=== PATIENT | female | born 1955 | race Caucasian/White ===

== ENCOUNTER 2016-04-30 08:49 | Emergency (ER) | payer MEDICAID, OTHER ==
[2016-04-30] MEDS ORDERED: HYDROmorphone 1 MG/ML Syringe IM ONE (09:23)
[2016-04-30] MEDS ORDERED: Ketorolac 60 MG/2 ML SDV IM ONE (09:23)
--- NOTE | 2016-04-30 09:56 | EDM.PDOC ---
ED HPI Trauma - General Chief Complaint: Upper Extremity Injury/Pain Stated Complaint: ARTHORITIS IN LT SHOULDER Time Seen by Provider: 04/30/16 09:11 Source: Reports: Patient History Limitations: Reports: No limitations - History of Present Illness INITIAL COMMENTS - FREE TEXT/NARRATIVE: The patient presents with right shoulder pain. She has fibromyalgia and she was recently diagnosed with RA by Dr Connelly in [place]. She has pain all over but her right shoulder has been bothering her more for the past couple of days. She denies any injury. The pain radiates to her neck. Occurred When: other (a few days ago) Occurred Where: home Method of Injury: unknown Severity: severe Pain/Injury Location: Reports: upper extremity, right (shoulder) Consciousness: Reports: no loss of consciousness Associated Symptoms: Reports: no other symptoms Allergies/ADRs: Allergies acetaminophen [From Darvocet-N 100] Allergy (Verified 04/30/16 08:55) Airway Tightness codeine Allergy (Verified 04/30/16 08:55) Airway Tightness fentanyl [From Duragesic] Allergy (Verified 04/30/16 08:55) Cannot Remember morphine Allergy (Verified 04/30/16 08:55) Airway Tightness Penicillins Allergy (Verified 04/30/16 08:55) Cannot Remember pregabalin [From Lyrica] Allergy (Verified 04/30/16 08:55) Airway Tightness propoxyphene napsylate [From Darvocet-N 100] Allergy (Verified 04/30/16 08:55) Airway Tightness Home Medications: Ambulatory Orders Gabapentin [Neurontin] 800 mg PO TID 05/21/14 [Confirmed 05/21/14] traMADol [Ultram] 50 - 100 mg PO Q6H PRN #30 tablet 04/30/16 Past Medical History Cardiovascular History: Reports: Hypertension Musculoskeletal History: Reports: Arthritis Endocrine/Metabolic History: Reports: Diabetes, type I Social & Family History - Tobacco Use Smoking Status *Q: Current Every Day Smoker Years of Tobacco use: 40 Packs/Tins Daily: 0.2 Review of Systems - Review of Systems Review Of Systems: See Below Constitutional: Reports: no symptoms Eyes: Reports: no symptoms Ears: Reports: no symptoms Nose: Reports: no symptoms Mouth/Throat: Reports: no symptoms Respiratory: Reports: no symptoms Cardiovascular: Reports: no symptoms GI/Abdominal: Reports: No symptoms Genitourinary: Reports: no symptoms Musculoskeletal: Reports: shoulder pain (Right) Skin: Reports: no symptoms Trauma Exam - Physical Exam Exam: See Below Exam Limited By: No limitations General Appearance: Reports: alert, no apparent distress Head: Reports: atraumatic, normocephalic Ears: Reports: normal external exam Nose: Reports: normal inspection Neck: Reports: non-tender, normal alignment, normal inspection Respiratory Exam: Reports: no respiratory distress, lungs clear, normal breath sounds Cardiovascular: Reports: regular rate, rhythm, no edema, no murmur GI/Abdominal: Reports: soft, non tender, no organomegaly Extremities: Reports: other (Pain upon palpation to the right lateral shoulder) Course - Vital Signs Last Recorded V/S: Last Vital Signs Temp 97.4 F 04/30/16 08:57 Pulse 80 04/30/16 08:57 Resp 18 04/30/16 08:57 BP 168/94 H 04/30/16 08:57 Pulse Ox 99 04/30/16 08:57 - Orders/Labs/Meds Meds: Medications Discontinued Medications Generic Name Dose Route Start Last Admin Trade Name Freq PRN Reason Stop Dose Admin Hydromorphone HCl 1 mg 04/30/16 09:23 04/30/16 09:43 Dilaudid IM 04/30/16 09:24 1 mg ONETIME ONE Administration Ketorolac Tromethamine 60 mg 04/30/16 09:23 04/30/16 09:40 Toradol IM 04/30/16 09:24 60 mg ONETIME ONE Administration - Re-Assessments/Exams Free Text/Narrative Re-Assessment/Exam: 04/30/16 09:54 I ordered dilaudid 1mg IM and toradol 60mg IM. I will discharge her home with some tramadol for pain. Departure - Departure Time of Disposition: 09:55 Disposition: Home, Self-Care 01 Condition: good Clinical Impression: Rheumatoid arthritis flare Right shoulder pain Qualifiers: Chronicity: acute Qualified Code(s): M25.511 - Pain in right shoulder Prescriptions: traMADol [Ultram] 50 - 100 mg PO Q6H PRN #30 tablet PRN Reason: Pain Referrals: Jason Grey PA-C [Primary Care Provider] - 2 Days (As scheduled) Forms: ED Department Discharge Additional Instructions: Take the tramadol as needed for pain. Please return if you are worse. Follow up with Jason Grey in 2 days.
[2016-04-30 10:31] VITALS: BP 138/85
== END 2016-04-30 10:20 | disposition home or self-care (01) ==
LOC: JD.ED 08:49
DX: M06.9 Rheumatoid arthritis, unspecified (principal); M25.511 Pain in right shoulder; F17.210 Nicotine dependence, cigarettes, uncomplicated; E10.9 Type 1 diabetes mellitus without complications; I10 Essential (primary) hypertension; Z88.5 Allergy status to narcotic agent; Z79.899 Other long term (current) drug therapy; Z88.0 Allergy status to penicillin
CPT/HCPCS: 96372; 99283; J1170; J1885; 99284

== ENCOUNTER 2016-09-27 15:50 | Emergency (ER) | payer MEDICAID ==
[2016-09-27 16:06] VITALS: BP 148/79
[2016-09-27] MEDS ORDERED: Ketorolac 60 MG/2 ML SDV IM ONE (17:26)
--- NOTE | 2016-09-27 17:27 | EDM.PDOC ---
ED HPI GENERAL MEDICAL PROBLEM - General Chief Complaint: Back Pain or Injury Stated Complaint: Pain Time Seen by Provider: 09/27/16 17:00 Source of Information: Reports: Patient, RN Notes Reviewed History Limitations: Reports: No Limitations - History of Present Illness INITIAL COMMENTS - FREE TEXT/NARRATIVE: 60 year old female presents to the ED with right low back pain and hip pain after a fall. She has fibromyalgia and says she falls frequently. The pain she is experiencing is not a new pain for her. She was able to ambulate after the fall. She did not hit her head or have a LOC. The daughter said she was a little confused after the fall. The confusion resolved prior to arrival. She has no bruising or evidence of head injury. She has a mild headache. No vision changes, slurred speech, or unilateral extremity weakness. The patient says she' s taken Tramadol in the past for pain and it works well for her. She's hoping for something to help with pain and plans to follow-up with Nancy Caryn tomorrow or Saturday. lower back Pain Score (Numeric/FACES): 9 - Related Data Allergies Allergy/AdvReac Type Severity Reaction Status Date / Time acetaminophen Allergy Airway Verified 09/27/16 16:06 [From Darvocet-N 100] Tightness codeine Allergy Airway Verified 09/27/16 16:06 Tightness fentanyl [From Duragesic] Allergy Cannot Verified 09/27/16 16:06 Remember morphine Allergy Airway Verified 09/27/16 16:06 Tightness Penicillins Allergy Cannot Verified 09/27/16 16:06 Remember pregabalin [From Lyrica] Allergy Airway Verified 09/27/16 16:06 Tightness propoxyphene napsylate Allergy Airway Verified 09/27/16 16:06 [From Darvocet-N 100] Tightness Home Meds: Home Meds Gabapentin [Neurontin] 800 mg PO TID 05/21/14 [History] Citalopram [Celexa] 40 mg PO DAILY 09/27/16 [History] Levothyroxine [Synthroid] 50 mcg PO ACBREAKFAST 09/27/16 [History] Ondansetron [Ondansetron ODT] 1 tab PO Q6H PRN 09/27/16 [History] Pantoprazole [ProTONIX] 40 mg PO ACBREAKFAST 09/27/16 [History] clonazePAM [Clonazepam] 1 tab PO DAILY 09/27/16 [History] sitaGLIPtin Phos/Metformin HCl [Janumet 50-1,000 MG] 1 each PO DAILY 09/27/16 [ History] tiZANidine HCl [Tizanidine HCl] 1 tab PO DAILY 09/27/16 [History] traZODone HCl [Trazodone HCl] 100 mg PO DAILY 09/27/16 [History] Past Medical History Cardiovascular History: Reports: Hypertension Gastrointestinal History: Reports: Other (See Below) Other Gastrointestinal History: chronic nausea Musculoskeletal History: Reports: Arthritis, Fibromyalgia Neurological History: Reports: Migraines, Vertigo Psychiatric History: Reports: Anxiety, Depression Endocrine/Metabolic History: Reports: Diabetes, Type II, Hypothyroidism Social & Family History - Family History Family Medical History: Noncontributory - Tobacco Use Smoking Status *Q: Current Every Day Smoker Years of Tobacco use: 30 Packs/Tins Daily: 0.5 - Caffeine Use Caffeine Use: Reports: Coffee - Recreational Drug Use Recreational Drug Use: No ED ROS GENERAL - Review of Systems Review Of Systems: See Below Constitutional: Reports: No Symptoms. Denies: Fever, Chills, Diaphoresis HEENT: Reports: No Symptoms. Denies: Vertigo, Vision Change Respiratory: Reports: No Symptoms. Denies: Shortness of Breath Cardiovascular: Reports: No Symptoms. Denies: Chest Pain GI/Abdominal: Reports: No Symptoms. Denies: Abdominal Pain, Nausea, Vomiting Musculoskeletal: Reports: Back Pain, Joint Pain, Muscle Pain (right low back ), Other (generalized pain to various locations ) Neurological: Reports: Confusion (brief), Headache. Denies: Dizziness, Numbness , Tingling, Weakness, Other ED EXAM, GENERAL - Physical Exam Exam: See Below Exam Limited By: No Limitations General Appearance: Alert, WD/WN, No Apparent Distress Eye Exam: Bilateral Eye: EOMI, PERRL Head: Atraumatic, Normocephalic Neck: Normal Inspection, Supple, Non-Tender, Full Range of Motion. No: Tender Midline Respiratory/Chest: No Respiratory Distress, Lungs Clear, Normal Breath Sounds, No Accessory Muscle Use Cardiovascular: Regular Rate, Rhythm, No Edema GI/Abdominal: Normal Bowel Sounds, Soft, Non-Tender Neurological: Alert, Oriented, CN II-XII Intact, Normal Cognition, Normal Gait, No Motor/Sensory Deficits, Other (cerebellar testing intact ) Skin Exam: Warm, Dry, Intact Course - Vital Signs Last Recorded V/S: Last Vital Signs Temp 97.5 F 09/27/16 15:55 Pulse 96 09/27/16 15:55 Resp 18 09/27/16 15:55 BP 148/79 H 09/27/16 15:55 Pulse Ox 96 09/27/16 15:55 - Orders/Labs/Meds Meds: Medications Discontinued Medications Generic Name Dose Route Start Last Admin Trade Name Myah PRN Reason Stop Dose Admin Ketorolac Tromethamine 60 mg 09/27/16 17:26 09/27/16 17:32 Toradol IM 09/27/16 17:27 60 mg ONETIME ONE Administration - Re-Assessments/Exams Free Text/Narrative Re-Assessment/Exam: Exam today is normal. No concern for acute head injury or stroke. Patient will be given Tramadol for pain. Educated on return precautions and followup instructions. Departure - Departure Time of Disposition: 17:28 Disposition: Home, Self-Care 01 Condition: Good Clinical Impression: Fibromyalgia Fall Qualifiers: Encounter type: initial encounter Qualified Code(s): W19.XXXA - Unspecified fall, initial encounter Chronic pain Qualifiers: Chronic pain type: other chronic pain Qualified Code(s): G89.29 - Other chronic pain - Discharge Information Instructions: Chronic Pain Referrals: Jason Grey PA-C [Primary Care Provider] - Forms: ED Department Discharge Additional Instructions: Follow-up with Nancy Samples tomorrow or Saturday, call [phone] to schedule Recommend Physical therapy Tramadol 1 tab every 6 hours as needed for pain Return to Er with any new or worsening symptoms
== END 2016-09-27 18:00 | disposition home or self-care (01) ==
LOC: JD.ED 15:50
DX: M79.7 Fibromyalgia (principal); G89.29 Other chronic pain; M54.5 Low back pain; I10 Essential (primary) hypertension; F41.9 Anxiety disorder, unspecified; F32.9 Major depressive disorder, single episode, unspecified; E11.9 Type 2 diabetes mellitus without complications; E03.9 Hypothyroidism, unspecified; Z79.899 Other long term (current) drug therapy; Z88.0 Allergy status to penicillin; Z88.5 Allergy status to narcotic agent; Z88.6 Allergy status to analgesic agent; Z88.8 Allergy status to other drugs, medicaments and biological substances; W19.XXXA Unspecified fall, initial encounter
CPT/HCPCS: 96372; 99283; J1885

== ENCOUNTER 2016-10-03 21:17 | Emergency (ER) | payer MEDICAID ==
[2016-10-03 21:32] VITALS: BP 159/77
--- NOTE | 2016-10-03 22:01 | EDM.PDOC ---
ED HPI GENERAL MEDICAL PROBLEM - General Chief Complaint: Syncope Stated Complaint: PAIN Time Seen by Provider: 10/03/16 21:58 - History of Present Illness INITIAL COMMENTS - FREE TEXT/NARRATIVE: 60-year-old female presents emergency room with severe hip pain and she now has a migraine. Patient fell was seen for this in this last week. Now the pain is getting so bad. The patient ran out of her tramadol. She has not been able to follow-up in the clinic says her physician is not return her phone call. Patient denies any repeat injury. The patient states the pain has been so bad that she passed out twice today she may have bumped her head. She denies any chest pain chest pressure breathing difficulties or shortness of breath she has had no palpitations. No loss of bowel or bladder control. - Related Data Allergies Allergy/AdvReac Type Severity Reaction Status Date / Time acetaminophen Allergy Airway Verified 09/27/16 16:06 [From Darvocet-N 100] Tightness codeine Allergy Airway Verified 09/27/16 16:06 Tightness fentanyl [From Duragesic] Allergy Cannot Verified 09/27/16 16:06 Remember morphine Allergy Airway Verified 09/27/16 16:06 Tightness Penicillins Allergy Cannot Verified 09/27/16 16:06 Remember pregabalin [From Lyrica] Allergy Airway Verified 09/27/16 16:06 Tightness propoxyphene napsylate Allergy Airway Verified 09/27/16 16:06 [From Darvocet-N 100] Tightness Home Meds: Home Meds Gabapentin [Neurontin] 800 mg PO TID 05/21/14 [History] Citalopram [Celexa] 40 mg PO DAILY 09/27/16 [History] Levothyroxine [Synthroid] 50 mcg PO ACBREAKFAST 09/27/16 [History] Ondansetron [Ondansetron ODT] 1 tab PO Q6H PRN 09/27/16 [History] Pantoprazole [ProTONIX] 40 mg PO ACBREAKFAST 09/27/16 [History] clonazePAM [Clonazepam] 1 tab PO DAILY 09/27/16 [History] sitaGLIPtin Phos/Metformin HCl [Janumet 50-1,000 MG] 1 each PO DAILY 09/27/16 [ History] tiZANidine HCl [Tizanidine HCl] 1 tab PO DAILY 09/27/16 [History] traZODone HCl [Trazodone HCl] 100 mg PO DAILY 09/27/16 [History] Past Medical History Cardiovascular History: Reports: Hypertension Gastrointestinal History: Reports: Other (See Below) Other Gastrointestinal History: chronic nausea Musculoskeletal History: Reports: Arthritis, Fibromyalgia Neurological History: Reports: Migraines, Vertigo Psychiatric History: Reports: Anxiety, Depression Endocrine/Metabolic History: Reports: Diabetes, Type II, Hypothyroidism Social & Family History - Family History Family Medical History: Noncontributory - Tobacco Use Smoking Status *Q: Current Some Day Smoker Years of Tobacco use: 30 Packs/Tins Daily: 0.1 - Caffeine Use Caffeine Use: Reports: Coffee - Recreational Drug Use Recreational Drug Use: No ED ROS GENERAL - Review of Systems Review Of Systems: See Below Constitutional: Reports: No Symptoms HEENT: Reports: No Symptoms Respiratory: Reports: No Symptoms Cardiovascular: Reports: Syncope (Possible). Denies: Chest Pain, Palpitations GI/Abdominal: Reports: No Symptoms Musculoskeletal: Reports: Other (She is ambulatory without to much difficulty she has right-sided hip discomfort) Neurological: Reports: No Symptoms ED EXAM, GENERAL - Physical Exam Exam: See Below Exam Limited By: No Limitations General Appearance: Alert, No Apparent Distress Eye Exam: Bilateral Eye: EOMI, Normal Inspection, PERRL Ears: Normal External Exam, Normal Canal, Hearing Grossly Normal, Normal TMs Nose: Normal Inspection, Normal Mucosa, No Blood Throat/Mouth: Normal Inspection, Normal Oropharynx, No Airway Compromise Head: Atraumatic, Normocephalic Neck: Normal Inspection, Supple, Non-Tender, Full Range of Motion. No: Lymphadenopathy (L), Lymphadenopathy (R), Tender Midline Respiratory/Chest: No Respiratory Distress, Lungs Clear, Normal Breath Sounds Cardiovascular: Regular Rate, Rhythm, No Edema, No Murmur GI/Abdominal: Normal Bowel Sounds, Soft, Non-Tender Back Exam: Other (She has some vague paraspinous discomfort. No bony tenderness straight leg raises are normal). No: CVA Tenderness (L), Paraspinal Tenderness , Vertebral Tenderness Extremities: Other (She has some vague right hip discomfort) Neurological: Alert, Oriented, Normal Cognition, No Motor/Sensory Deficits. No : Sensory/Motor Deficit EKG INTERPRETATION EKG Date: 10/03/16 Rhythm: NSR Couch: LAD-Left Couch Deviation P-Wave: Present QRS: Other (Interventricular conduction delay) ST-T: Other (Nonspecific nondiagnostic changes no evidence of ischemia) QT: Prolonged (Borderline prolonged probably due to the intraventricular conduction delay) Comparison: NA - No Prior EKG EKG Interpretation Comments: Abnormal Course - Vital Signs Last Recorded V/S: Last Vital Signs Temp 36.1 C 10/03/16 21:28 Pulse 89 10/03/16 21:28 Resp 16 10/03/16 21:28 BP 159/77 H 10/03/16 21:28 Pulse Ox 97 10/03/16 21:28 - Orders/Labs/Meds Orders: Active Orders 24 hr Category Date Time Status EKG Documentation Completion [RC] STAT Care 10/03/16 22:30 Active Head wo Cont [CT] Stat Exams 10/03/16 22:30 Taken Labs: Laboratory Tests 10/03/16 Range/Units 23:08 Sodium 142 (136-145) mEq/L Potassium 3.9 (3.5-5.1) mEq/L Chloride 104 (98-107) mEq/L Carbon Dioxide 31 (21-32) mEq/L Anion Gap 10.9 (5-15) BUN 19 H (7-18) mg/dL Creatinine 1.2 H (0.55-1.02) mg/dL Est Cr Clr Drug Dosing 43.05 mL/min Estimated GFR (MDRD) 46 (>60) mL/min BUN/Creatinine Ratio 15.8 (14-18) Glucose 201 H (74-106) mg/dL Calcium 9.0 (8.5-10.1) mg/dL Meds: Medications Discontinued Medications Generic Name Dose Route Start Last Admin Trade Name Freq PRN Reason Stop Dose Admin Diphenhydramine HCl 50 mg 10/03/16 22:32 10/03/16 22:47 Benadryl IVPUSH 10/03/16 22:33 50 mg ONETIME ONE Administration Lactated Ringer's 1,000 mls @ 999 mls/hr 10/03/16 22:32 10/03/16 22:47 Ringers, Lactated IV 10/03/16 23:32 999 mls/hr .BOLUS ONE Administration Ketorolac Tromethamine 30 mg 10/03/16 23:59 10/04/16 00:07 Toradol IM 08/03/17 00:00 30 mg ONETIME ONE Administration Ondansetron HCl 4 mg 10/03/16 22:32 10/03/16 22:48 Zofran IVPUSH 10/03/16 22:33 4 mg ONETIME ONE Administration - Re-Assessments/Exams Free Text/Narrative Re-Assessment/Exam: 10/04/16 01:13 Patient had a uneventful CT of her head. Electrolytes are unremarkable creatinine 1.2 patient was given Benadryl Zofran with not much improvement in her headache this was followed up with 30 mg of IM Toradol she feels much better and wants to go home Departure - Departure Time of Disposition: 01:14 Disposition: Home, Self-Care 01 Clinical Impression: Migraine, Low back pain, Hip pain - Discharge Information Forms: ED Department Discharge Additional Instructions: Return to the emergency room with any questions problems or worsening symptoms. Follow-up with your regular physician this week if possible. Go home and get a good nights sleep do not eat a heavy meal tonight push fluids. - My Orders Last 24 Hours: My Active Orders 10/03/16 22:30 EKG Documentation Completion [RC] STAT Head wo Cont [CT] Stat - Assessment/Plan Last 24 Hours: My Active Orders 10/03/16 22:30 EKG Documentation Completion [RC] STAT Head wo Cont [CT] Stat
[2016-10-03] MEDS ORDERED: Ondansetron 4 MG/2 ML SDV IVPUSH ONE (22:32)
[2016-10-03] MEDS ORDERED: diphenhydrAMINE 50 MG/ML SDV IVPUSH ONE (22:32)
[2016-10-03] MEDS ORDERED: Lactated Ringers 1,000 ML IV ONE (22:32)
[2016-10-03] MEDS ORDERED: Ketorolac 30 MG/ML SDV IM ONE (23:59)
--- NOTE | 2016-10-04 07:13 | CT ---
Head CT Technique: Multiple axial sections through the brain were obtained. Intravenous contrast not utilized. Comparison: No previous intracranial imaging. Findings: Ventricles along with basal cisterns and sulci over the convexities are slightly prominent. Very minimal diminished density noted within the periventricular white matter compatible with small vessel ischemic demyelination change. No other abnormal parenchymal densities are seen. Slight atherosclerotic calcification is seen within the carotid siphon. Bone window settings show the visualized sinuses to appear clear. No acute calvarial abnormality is seen. Impression: 1. Minimal senescent change. 2. No acute intracranial abnormality is identified. Diagnostic code #2 I agree with preliminary report issued by [facility] ([facility] preliminary report dictated on 10/04/16, 12:31 AM Central Time)
== END 2016-10-04 01:20 | disposition home or self-care (01) ==
LOC: JD.ED 21:17
DX: G43.909 Migraine, unspecified, not intractable, without status migrainosus (principal); M25.551 Pain in right hip; M54.5 Low back pain; F17.210 Nicotine dependence, cigarettes, uncomplicated; I10 Essential (primary) hypertension; E11.9 Type 2 diabetes mellitus without complications; M19.90 Unspecified osteoarthritis, unspecified site; F41.9 Anxiety disorder, unspecified; F32.9 Major depressive disorder, single episode, unspecified; E03.9 Hypothyroidism, unspecified; Z79.84 Long term (current) use of oral hypoglycemic drugs; Z79.899 Other long term (current) drug therapy; Z88.5 Allergy status to narcotic agent; Z88.0 Allergy status to penicillin; Z88.6 Allergy status to analgesic agent; Z88.8 Allergy status to other drugs, medicaments and biological substances
CPT/HCPCS: 36415; 70450; 80048; 96361; 96372; 96374; 96375; 99284; J1200; J1885; J2405; J7120

== ENCOUNTER 2016-10-30 17:33 | Emergency (ER) | payer OTHER ==
--- NOTE | 2016-10-30 17:52 | EDM.PDOC ---
ED HPI GENERAL MEDICAL PROBLEM - General Chief Complaint: Lower Extremity Injury/Pain Stated Complaint: HIP PAIN Time Seen by Provider: 10/30/16 17:51 Source of Information: Reports: Patient History Limitations: Reports: No Limitations - History of Present Illness INITIAL COMMENTS - FREE TEXT/NARRATIVE: 61-year-old female presents the ED with chronic generalized pain syndrome labeled as fibromyalgia syndrome. She has diffuse osteoarthritic changes throughout her neck and lumbar spine both hips and both knees. Currently having a lot of pain in her left hip rating down to her knee. No pain below either knee. She does not walk up stairs at all due to severe patellofemoral pain in her left knee. She is a candidate I believe for total knee replacement but it's unclear why she has not pursue this avenue of treatment. At present she's not sleeping at all she is exhausted due to chronic pain. She uses trazodone 100 mg at bedtime and has for many years. So clonazepam 1 mg at bedtime. Pain is constant and radicular. Certain movements make it worse. 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 She has type 2 diabetes which is very well-controlled. Blood sugar today was 109. Onset: Other (Chronic pain syndrome for many months just worse the last few days.) Duration: Chronic, Constant, Getting Worse Location: Reports: Generalized (Generalized pain syndrome worse pain at present in the is in the left but talk lower back rating into the left leg down to the knee.) Quality: Reports: Ache, Throbbing Severity: Severe (Currently rates pain as 8 out of 10.) Improves with: Reports: None Worsens with: Reports: Other (Standing), Movement Context: Reports: Other (Has a chronic pain syndrome for over 20 years.). Denies: Activity, Exercise, Lifting, Sick Contact, Trauma Associated Symptoms: Reports: Headaches, Loss of Appetite, Malaise, Nausea/ Vomiting, Weakness (. Feels very weak in her lower extremities.). 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.) Left Knee Pain Score (Numeric/FACES): 8 - Related Data Allergies Allergy/AdvReac Type Severity Reaction Status Date / Time acetaminophen Allergy Airway Verified 10/30/16 17:53 [From Darvocet-N 100] Tightness codeine Allergy Airway Verified 10/30/16 17:53 Tightness fentanyl [From Duragesic] Allergy Cannot Verified 10/30/16 17:53 Remember morphine Allergy Airway Verified 10/30/16 17:53 Tightness Penicillins Allergy Cannot Verified 10/30/16 17:53 Remember pregabalin [From Lyrica] Allergy Airway Verified 10/30/16 17:53 Tightness propoxyphene napsylate Allergy Airway Verified 10/30/16 17:53 [From Darvocet-N 100] Tightness Home Meds: Home Meds Gabapentin [Neurontin] 800 mg PO TID 05/21/14 [History] Citalopram [Celexa] 40 mg PO DAILY 09/27/16 [History] Levothyroxine [Synthroid] 50 mcg PO ACBREAKFAST 09/27/16 [History] Ondansetron [Ondansetron ODT] 1 tab PO Q6H PRN 09/27/16 [History] Pantoprazole [ProTONIX] 40 mg PO ACBREAKFAST 09/27/16 [History] clonazePAM [Clonazepam] 1 tab PO DAILY 09/27/16 [History] sitaGLIPtin Phos/Metformin HCl [Janumet 50-1,000 MG] 1 each PO DAILY 09/27/16 [ History] tiZANidine HCl [Tizanidine HCl] 1 tab PO DAILY 09/27/16 [History] traZODone HCl [Trazodone HCl] 100 mg PO DAILY 09/27/16 [History] ClonazePAM [KlonoPIN] 2 mg PO BEDTIME #30 tablet 10/30/16 [Rx] Meloxicam 15 mg PO DAILY #14 tablet 10/30/16 [Rx] oxyCODONE HCl/Acetaminophen [Percocet 5-325 mg Tablet] 1 - 2 each PO Q4H PRN # 24 tablet 10/30/16 [Rx] Past Medical History Cardiovascular History: Reports: Hypertension Gastrointestinal History: Reports: Other (See Below) Other Gastrointestinal History: chronic nausea Musculoskeletal History: Reports: Arthritis, Back Pain, Chronic, Fibromyalgia, Neck Pain, Chronic, Osteoarthritis, Osteoporosis Neurological History: Reports: Migraines, Vertigo Psychiatric History: Reports: Anxiety, Depression Endocrine/Metabolic History: Reports: Diabetes, Type II, Hypothyroidism Social & Family History - Family History Family Medical History: Noncontributory - Tobacco Use Smoking Status *Q: Current Some Day Smoker Years of Tobacco use: 30 Packs/Tins Daily: 0.1 - Caffeine Use Caffeine Use: Reports: Coffee - Recreational Drug Use Recreational Drug Use: No - Living Situation & Occupation Living situation: Reports: Single Occupation: Disabled Review of Systems - Review of Systems Review Of Systems: See Below Constitutional: Reports: Weakness (Generalized). Denies: Chills, Diaphoresis, Fever Eyes: Reports: No Symptoms Ears: Reports: No Symptoms Nose: Reports: No Symptoms Mouth/Throat: Reports: Other Respiratory: Reports: Shortness of Breath (Has had all her teeth removed. She is edentulous.) Cardiovascular: Reports: Edema (Mild retained fluid in her lower extremities.), Lightheadedness (At times due to the severity of the pain when she is walking or standing). Denies: Chest Pain ( Exertion.) GI/Abdominal: Reports: Decreased Appetite Genitourinary: Reports: Other (Frequency) Musculoskeletal: Reports: Neck Pain, Back Pain (Chronic low back pain with radicular pain into both but talks and posterior lateral thighs. Worse on the left as compared to the right.), Leg Pain (5 pain to the knee but not below the knee on either leg.) Skin: Reports: No Symptoms Neurological: Reports: Dizziness, Headache, Difficulty Walking, Gait Disturbance (Walks with a shuffling gait.) Psychiatric: Reports: Depression, Other (Chronic insomnia) ED EXAM, GENERAL - Physical Exam Exam: See Below Exam Limited By: No Limitations General Appearance: Alert, Mild Distress Eye Exam: Bilateral Eye: Normal Inspection Head: Atraumatic Neck: Tender Lateral (Bilaterally with crepitus on lateral rotation.) Respiratory/Chest: No Respiratory Distress, Decreased Breath Sounds (Breath sounds are mildly diminished at both bases.) Cardiovascular: Regular Rate, Rhythm, No Gallop, No Murmur, No Rub Peripheral Pulses: 1+: Posterior Tibial (L), Posterior Tibial (R), Dorsalis Pedis (L), Dorsalis Pedis (R) Back Exam: Decreased Range of Motion, Vertebral Tenderness (From L1-L5 bilaterally. Worse is over the L4-L5 and L5-S1 facet joints on the left side as compared to the right.), Other ( There is minimal per muscle spasm. severe bilateral sacroiliac ileitis particularly in the superior aspect of the joint much worse on the left as compared to the right and I think this is the cause of the referred pain down her leg at present. Straight leg raising was not limited I could get up to 60 on both sides. ). No: Full Range of Motion, CVA Tenderness (L), CVA Tenderness (R), Muscle Spasm Extremities: Other (Patient has loss of 10 external rotation of both hips compare with most arthritic changes. This did not exacerbate the pain in her knee however. There is some increased warmth coming from the left knee joint with no effusion evident. Again marked severe pain on palpation of the SI joint particularly the superior aspect of the joint bilaterally) Neurological: Alert, Oriented, CN II-XII Intact, Normal Cognition. No: Normal Gait Psychiatric: Normal Affect Skin Exam: Warm, Dry, Intact, Normal Color, No Rash Course - Vital Signs Last Recorded V/S: Last Vital Signs Temp 36.6 C 10/30/16 17:48 Pulse 83 10/30/16 17:48 Resp 18 10/30/16 17:48 BP 111/70 10/30/16 17:48 Pulse Ox 95 10/30/16 17:48 - Orders/Labs/Meds Labs: Laboratory Tests 10/30/16 Range/Units 17:46 POC Glucose 109 (80-115) mg/dL Meds: Medications Discontinued Medications Generic Name Dose Route Start Last Admin Trade Name Freq PRN Reason Stop Dose Admin Hydromorphone HCl 1 mg 10/30/16 18:16 Dilaudid IM 10/30/16 18:17 ONETIME ONE Promethazine HCl 25 mg 10/30/16 18:16 Phenergan IM 10/30/16 18:17 ONETIME ONE - Radiology Interpretation Free Text/Narrative:: 61-year-old female presents the ED with generalized chronic pain syndrome which is been acutely exacerbated as of recent. Increased pain in her left lower back but talk rating down towards the left knee. She has fibromyalgia syndrome for over 20 years. It is disrupted her sleep pattern tremendously as of late and she feels exhausted and weak. Nauseated due to the severity of the pain. She is a type II diabetic but sugars are under excellent control current sugar today was 109. She had 120 this morning. She has not slept well for a week. Showed a takes trazodone 100 mg at bedtime and 1 mg of Klonopin. Examination suggests most the pain is coming from L4-L5 and L5-S1 facet joints on the left side with severe pain throughout the sacroiliac joints bilaterally in the superior aspect worse on the left as compared to the right. I could find only slight warmth in the knee with osteophytic changes but straight leg raising is negative suggesting no evidence of nerve root entrapment. Decreased range of motion of her hip with loss of 10 external rotation suggesting osteophytic changes in the hip as well. Think most the pain is coming from the sacroiliac joint however. She has been on steroids in the past but prefers not to take them due to elevation of her blood sugars and retention of fluid. I will therefore place her on meloxicam 15 mg once daily as an anti-inflammatory for 14 day course. If it helps then maybe she can continue as long as her renal function is maintained. Percocet 5/325 milligram tablets one or 2 every 4-6 hours needed for pain relief. Will increase her Klonopin to 2 mg at bedtime to help sleep. Departure - Departure Time of Disposition: 18:49 Disposition: Home, Self-Care 01 Condition: Fair Clinical Impression: Degenerative disc disease at L5-S1 level, Bilateral sacroiliitis, Chronic fatigue syndrome with fibromyalgia - Discharge Information Prescriptions: ClonazePAM [KlonoPIN] 2 mg PO BEDTIME #30 tablet Meloxicam 15 mg PO DAILY #14 tablet oxyCODONE HCl/Acetaminophen [Percocet 5-325 mg Tablet] 1 - 2 each PO Q4H PRN # 24 tablet PRN Reason: pain relief. Referrals: Nancy Rubin PA [Primary Care Provider] - Forms: ED Department Discharge Additional Instructions: Evaluation the emergency room today in regards to chronic pain syndrome with acute exacerbation of pain in the left lower back but talk rating down towards the knee. Examination reveals mild generalized osteophytic changes in the left knee and left hip. Marked inflammation of the sacroiliac joint bilaterally worse on the left as compared to the right. Pain at the lower back at L4-L5 and L5-S1 facet joints with degenerative disc disease likely. However straight leg raising does not exacerbate the pain suggesting no nerve root entrapment or true sciatica. Pain is referred from the left sacroiliac joint down towards the knee at this time. Since you are diabetic we opted not to use any prednisone at this time to relieve inflammation. Instead I would suggest use of meloxicam 15 mg once daily in the morning which will not aggravate her blood sugars but will start to work in a couple of days to relieve pain and inflammation. This is a trial medication for 14 days to see whether or not it is helpful. Percocet 5/ 325 milligrams tablets one or 2 every 4-6 hours for pain relief for the next few days to break through the acute phase of pain. Suggest increasing her Klonopin from 1 mg to 2 mg at bedtime in an effort to help you sleep better. He did receive an IM injection of Dilaudid 1 mg and Phenergan 25 mg in the ED to provide acute pain relief nausea relief and likely modest amount of sedation. It would not be uncommon for you to fall asleep for the next 4-6 hours. Can then take your normal medications that you take at bedtime when you awaken. Follow-up with personal physician/chronic pain management physician as planned.
[2016-10-30] MEDS ORDERED: Promethazine 25 MG/ML SDV IM ONE (18:16)
[2016-10-30] MEDS ORDERED: HYDROmorphone 1 MG/ML Syringe IM ONE (18:16)
[2016-10-30 19:20] VITALS: BP 117/71
== END 2016-10-30 19:15 | disposition home or self-care (01) ==
LOC: JD.ED 17:33
DX: M51.37 Other intervertebral disc degeneration, lumbosacral region (principal); M46.1 Sacroiliitis, not elsewhere classified; M79.7 Fibromyalgia; I10 Essential (primary) hypertension; E03.9 Hypothyroidism, unspecified; F32.9 Major depressive disorder, single episode, unspecified; F17.210 Nicotine dependence, cigarettes, uncomplicated; E11.9 Type 2 diabetes mellitus without complications; Z79.899 Other long term (current) drug therapy; Z88.0 Allergy status to penicillin; Z88.5 Allergy status to narcotic agent; Z88.8 Allergy status to other drugs, medicaments and biological substances
CPT/HCPCS: 82962; 96372; 99283; J1170; J2550

== ENCOUNTER 2017-06-04 06:51 | Day surgery (SDC) | payer MEDICARE ==
--- NOTE | 2017-05-20 22:51 | HP ---
DATE OF ADMISSION: 06/04/2017 HISTORY OF PRESENT ILLNESS: This is the first orthopedic outpatient admission for surgery for this 61-year- old female who is being scheduled for arthroscopic surgery of the right knee for torn medial meniscus. The patient had suffered the injury on 03/22/2017, has had no improvement with the current treatment program. Recent MRI was very positive for medial meniscus tear. After failed treatment, the patient is now being scheduled for the surgery. Procedure has been outlined to her. She understands the risks and complications involved with it. She has undergone a previous left knee arthroscopic surgery and understands the rehab and recovery process. She has consented to surgery. ALLERGIES: The patient has multiple allergies to medications. These include codeine, fentanyl, Lyrica, morphine, penicillin, she gets hives, statins, she gets a myalgia, sulfa, she gets vomiting, and latex. CURRENT MEDICATIONS: The patient's current medications include aspirin, calcium, vitamins, clonazepam, citalopram 40 mg, folic acid, gabapentin 800 mg, hydroxychloroquine sulfate 200 mg, Janumet mg, levothyroxine, meclizine, meloxicam 15 mg, methotrexate 2.5 mg, ondansetron 4 mg, pantoprazole 40 mg, tizanidine 4 mg, tramadol 50 mg, trazodone 100 mg, triamterene hydrochlorothiazide 37.5/25 mg, and multiple vitamins. PAST MEDICAL HISTORY: The patient has a history of decreased thyroid function, fibromyalgia, rheumatoid arthritis, high blood pressure, and increased cholesterol. PAST SURGICAL HISTORY: The surgical history is positive. The patient notes multiple surgeries in the past. She notes no anesthesia problems or complications. She denies any bleeding history or blood clot history. SOCIAL HISTORY: The patient is a 1-pack per week smoker. She denies any alcohol use. PHYSICAL EXAMINATION: GENERAL: Today reveals a well-developed, well-nourished 61-year-old female in [id number] distress on crutches and limited weightbearing right lower extremity. HEAD, EYES, EARS, NOSE, AND THROAT: The patient denies any head eyes, ears, nose, and throat problems or changes. CHEST: Denies any chest pain. COR: Regular rate. ABDOMEN: Soft. : Intact. EXTREMITIES: The right knee and lower extremity evaluation shows positive medial joint line pain with palpation and pressure. Extension is -5 degrees, flexion is less than 90 degrees. RADIOGRAPHIC STUDIES: MRI positive for medial meniscus tear. PLAN: Plan is for the patient to undergo a surgical arthroscopy for medial meniscus tear right knee. HARRISON /[id number] MTDD
[~2017-06-04 06:51] MED LIST: Lactated Ringers 1,000 ML IV SCH; Lidocaine 1%/Sod Bicarbonate in NS 8.4% 1 ML Syringe IDERM PRN; Sodium Chloride 0.9% 10 ML Syringe FLUSH PRN
[2017-06-04] MEDS ORDERED: Sodium Chloride 0.9% 50 ML SDV ONE (07:12)
[2017-06-04] MEDS ORDERED: Bupivacaine 0.5%/EPINEPHrine 1:200,000 50 ML MDV ONE (07:12)
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
[2017-06-04] MEDS ORDERED: EPINEPHrine 1 MG/ML 30 ML MDV ONE (07:33)
[2017-06-04] MEDS ORDERED: EPINEPHrine 1 MG/ML SDV ONE ×2 (07:35→10:01)
[2017-06-04] MEDS ORDERED: Ketorolac 15 MG/ML SDV IVPUSH PRN (07:52)
[2017-06-04] MEDS ORDERED: Acetaminophen/oxyCODONE 325-5 MG Tab PO PRN (07:52)
[2017-06-04] MEDS ORDERED: Ondansetron 4 MG/2 ML SDV IVPUSH PRN (07:52)
[2017-06-04] MEDS ORDERED: Rocuronium 50 MG/5 ML Vial ONE (07:58)
[2017-06-04] MEDS ORDERED: Propofol 200 MG/20 ML SDV ONE (07:59)
[2017-06-04] MEDS ORDERED: Midazolam 1 MG/ML 2 ML SDV ONE (07:59)
[2017-06-04] MEDS ORDERED: Lidocaine 1% 4 ML ONE (07:59)
[2017-06-04] MEDS ORDERED: ceFAZolin 1 GM Vial ONE (07:59)
[2017-06-04] MEDS ORDERED: Ketorolac 30 MG/ML SDV ONE (07:59)
[2017-06-04] MEDS ORDERED: fentaNYL 250 MCG/5 ML SDV ONE ×2 (07:59→08:41)
[2017-06-04] MEDS ORDERED: diphenhydrAMINE 50 MG/ML SDV ONE (08:22)
[2017-06-04] MEDS ORDERED: Dexamethasone 4 MG/ML SDV ONE (08:22)
[2017-06-04] MEDS ORDERED: Lactated Ringers 1,000 ML ONE (08:31)
[2017-06-04] MEDS ORDERED: HYDROmorphone 0.5 MG/0.5 ML Syringe ONE ×2 (08:42→08:46)
[2017-06-04] MEDS ORDERED: Ropivacaine 0.5% 5 MG/ML 30 ML SDV ONE (09:59)
[2017-06-04] MEDS ORDERED: diphenhydrAMINE 50 MG/ML SDV IVPUSH PRN (10:02)
[2017-06-04] MEDS ORDERED: fentaNYL 250 MCG/5 ML SDV IVPUSH PRN (10:02)
--- NOTE | 2017-06-04 10:06 | PCM.POSTAN ---
POST ANESTHESIA ASSESSMENT - MENTAL STATUS Mental Status: Alert, Oriented - VITAL SIGNS Pulse Rate: 116 SaO2: 92 Resp Rate: 11 Blood Pressure: 142/67 Temperature: 37.5 C - RESPIRATORY Respiratory Status: Respiratory Rate WNL, Airway Patent, O2 Saturation Stable, Supplemental Oxygen - CARDIOVASCULAR CV Status: Pulse Rate WNL, Blood Pressure Stable - GASTROINTESTINAL GI Status: No Symptoms - PAIN Pain Score: 0 - POST OP HYDRATION Hydration Status: Adequate & Stable - OBSERVATIONS Free Text/Narrative:: no anesthesia complications noted
[2017-06-04] MEDS ORDERED: HYDROmorphone 0.5 MG/0.5 ML Syringe IVPUSH ONE (10:15)
[2017-06-04] MEDS ORDERED: Lidocaine 1% 2 ML ONE (10:16)
--- NOTE | 2017-06-04 10:54 | PCM.SN ---
- Free Text/Narrative Note: Right selective femoral nerve block at the adductor canal for post-procedure pain control under US guidance requested by Dr. Salamanca. Time Out: 1022 Start: 1021 End: 103 Chart reviewed. Consent signed. Questions answered. Appropriate monitors applied. Time out performed. Right mid-shaft femur identified with ultrasound, scanning medially of femur, the femoral artery in the adductor canal visualized , and the femoral nerve located laterally to the artery. The skin was prepped lateral to the ultrasound probe with chlorahexadine times two. The 21ga 4 insulated block needle was inserted under direct ultrasound guidance into the adductor canal. 20 mL of 0.5% ropivacaine with 1:200,000 epinephrine was injected circumferentially around the nerve with intermittent negative aspiration noted. Patient tolerated the procedure well. Aseptic technique noted along with sterile gloves, mask, and sterile probe cover. See pictures on progress note and vital signs on nurses notes. Block completed in PACU. Mark De Paz CRNA
[2017-06-04 11:01] VITALS: BP 168/61
--- NOTE | 2017-06-04 15:00 | OR ---
DATE OF OPERATION: 06/04/2017 SURGEON: Randy Price MD PREOPERATIVE DIAGNOSIS: 1. Right knee with degenerative tearing, medial meniscus and lateral meniscus. 2. Osteochondrosis of medial femoral condyle and lateral femoral condyle, right knee. 3. Fibrous adhesions, ligamentum mucosum, and generalized synovitis, right knee; chondromalacia patellae. POSTOPERATIVE DIAGNOSIS: 1. Right knee with degenerative tearing, medial meniscus and lateral meniscus. 2. Osteochondrosis of medial femoral condyle and lateral femoral condyle, right knee. 3. Fibrous adhesions, ligamentum mucosum, and generalized synovitis, right knee; chondromalacia patellae. ANESTHESIA: General. OPERATION PERFORMED: 1. Arthroscopic partial medial meniscectomy and partial lateral meniscectomy of the right knee. 2. Arthroscopic debridement, removal of fibrous adhesions, ligamentum mucosum, right knee. 3. Chondroplasty of lateral femoral condyle and medial femoral condyle of the right knee. 4. Removal of bony exostosis of lateral femoral condyle with ACL impingement. DESCRIPTION OF PROCEDURE: The patient was taken to the operative room in a supine position. She was placed under anesthesia. The right knee was then prepped and draped by standard technique. Two portal incisions were used, medial and lateral, beginning with evaluation of the medial compartment. Significant fibrous synovitis was present in the anterior compartment. This was removed with a shaver along with a ligamentum mucosum that was significantly torn. This opened up the central area. ACL was intact. With the medial compartment then evaluated, was found to have a degenerative tearing of the medial meniscus with a large flap tear that was flipped into the posterior aspect of the popliteal space. This was removed with the shaver and electrocautery. The meniscus itself was then trimmed smoothed back to a stable peripheral rim using the shaver and also the [employer] meniscus mi. Once that was stabilized, nerve hook was then brought in and the meniscus was probed, the posterior horn anteriorly. No tears or flaps were found extending back into the joint area with a solid meniscus being present. There was osteochondrosis involving the tibial plateau of moderate intensity and also involving the medial femoral condyle, essentially involving the whole medial compartment. The lateral compartment was then evaluated with a [id number] position. There was tearing of the posterior horn area of the lateral meniscus and the central anterior edge of the lateral meniscus central and into the anterior area. This was removed with the shaver and electrocautery. Once that was smoothed out to a nice stable rim of cartilage, the nerve hook was then brought in. The meniscus was probed from the posterior horn anteriorly. No separate tears were identified. The operation continued with debridement of fibrous adhesions involving the lateral compartment, extending into the joint on movement. Once that was trimmed out, this decompressed the lateral compartment quite nicely. Swinging the arthroscope to the superior patellar space, the patella was slightly shifted laterally with chondromalacia patellae of [id number] intensity. There also was significant osteochondrosis involving the central portion of the femur, intercondylar notch area, and extending over to the medial femoral condyle notch area, where there was a small area of bone exposed. The operation went with a light chondroplasty being performed in that area. Then, finally, the spur formation was found on the medial aspect of the lateral femoral condyle impinging on the cruciate. This was removed with the bur. This decompressed the joint quite nicely and the ACL. The remaining portion of the joint went through a final inspection after a thorough irrigation and found to be satisfactory, even though she had degenerative arthritis changes involving the joint. The operation then proceeded with closure of the skin with 3-0 Prolene. The patient was placed in a Villasenor dressing. She tolerated this procedure well and left the operating room in a stable condition to room for recovery. ESTIMATED BLOOD LOSS: MMODAL /[id number]
== END 2017-06-04 11:55 | disposition home or self-care (01) ==
LOC: JD.SDS 06:51
PROVIDERS: ATTEND Specialist
DX: S83.241A Other tear of medial meniscus, current injury, right knee, initial encounter (principal); S83.281A Other tear of lateral meniscus, current injury, right knee, initial encounter; M93.861 Other specified osteochondropathies, right lower leg; M65.88 Other synovitis and tenosynovitis, other site; M06.9 Rheumatoid arthritis, unspecified; E78.00 Pure hypercholesterolemia, unspecified; F17.210 Nicotine dependence, cigarettes, uncomplicated; J30.9 Allergic rhinitis, unspecified; F41.9 Anxiety disorder, unspecified; M19.90 Unspecified osteoarthritis, unspecified site; I10 Essential (primary) hypertension; F32.9 Major depressive disorder, single episode, unspecified; E11.9 Type 2 diabetes mellitus without complications; E03.9 Hypothyroidism, unspecified; G47.00 Insomnia, unspecified; X58.XXXA Exposure to other specified factors, initial encounter; Z79.84 Long term (current) use of oral hypoglycemic drugs; Z88.5 Allergy status to narcotic agent; Z88.8 Allergy status to other drugs, medicaments and biological substances; Z88.0 Allergy status to penicillin; Z88.2 Allergy status to sulfonamides; Z91.040 Latex allergy status; Z79.82 Long term (current) use of aspirin; Z79.899 Other long term (current) drug therapy
CPT/HCPCS: 29880; 64447; 82962; A9270; J0171; J0690; J1100; J1170; J1200; J1885; J2250; J2795; J3010; J7120; 01400; 64450; J2704

== ENCOUNTER 2017-07-20 18:59 | Emergency (ER) | payer MEDICARE, OTHER ==
[2017-07-20 19:10] VITALS: BP 141/72
--- NOTE | 2017-07-20 19:53 | EDM.PDOC ---
ED HPI GENERAL MEDICAL PROBLEM - General Chief Complaint: Chest Pain Stated Complaint: BLOOD PRESSURE ISSUES HEADACHE AND CHEST DISCOMFOR Time Seen by Provider: 07/20/17 19:04 Source of Information: Reports: Patient, Family History Limitations: Reports: No Limitations - History of Present Illness INITIAL COMMENTS - FREE TEXT/NARRATIVE: This is a 61-year-old female. She states that her blood pressures over the last week or so have been going real high and then coming back down to normal. During this time she will get severe headaches and chest discomfort. She comes tonight because she is feeling terrible and she wants to know why. She does not take a blood pressure medication though she does take a fluid pill called Dyazide. As she began to discuss her symptoms she went into a conversation of having severe fibromyalgia and rheumatoid arthritis with a previous back injury and neck injury and that her family doctor used to provide her tramadol that she would take twice a day and she had no pain. But now she is in pain all the time. However she injured her right knee and had a meniscus repair and the orthopedic surgeon gave her some tramadol and the pharmacy threw away her other prescriptions of tramadol and when she called her new family doctor since her old one left, they told her to go back to the equipment specialist for her tramadol. Therefore she is not been having tramadol for quite some time. As I spoke to her the daughter would interject and the patient got very upset turned bright red started crying and after that her blood pressure went up. She is on the verge of tears on multiple occasions during my interview and examination. I indicated to her that I thought she was depressed and she agreed. She has not followed up with her new family doctor. She denies any suicidal ideation she denies any plan. She says she can't kill herself because it is against her yazdanism. The patient states that her head hurts in the frontal region and that she hurts all over in her neck and lower back due to her fibromyalgia. Her chest pain seems to be in the center of her chest and does not seem to radiate to her neck or down her arms or into her back. The patient does not feel that any of her family members are compassionate with her and with her problems and her pain. Left Chest Pain Score (Numeric/FACES): 4 - Related Data Allergies Allergy/AdvReac Type Severity Reaction Status Date / Time codeine Allergy Airway Verified 06/03/17 13:40 Tightness fentanyl [From Duragesic] Allergy Airway Verified 06/03/17 13:40 Tightness latex Allergy Rash Verified 06/03/17 13:40 morphine Allergy Hives Verified 06/03/17 13:40 pregabalin [From Lyrica] Allergy Hives Verified 06/03/17 13:40 Sulfa (Sulfonamide Allergy Rash Verified 06/03/17 13:40 Antibiotics) Penicillins AdvReac Muscle Verified 06/04/17 07:55 Aches Womynfb-Hrl-Geg Reductase AdvReac Vomiting Verified 06/04/17 07:55 Inhibitor Home Meds: Home Meds Gabapentin [Neurontin] 800 mg PO TID 05/21/14 [History] Levothyroxine [Synthroid] 50 mcg PO DAILY 09/27/16 [History] Pantoprazole [ProTONIX] 40 mg PO DAILY 09/27/16 [History] sitaGLIPtin Phos/Metformin HCl [Janumet 50-1,000 MG] 1 each PO BID 09/27/16 [ History] tiZANidine HCl [Tizanidine HCl] 4 mg PO Q8H PRN 09/27/16 [History] traZODone HCl [Trazodone HCl] 100 mg PO BEDTIME 09/27/16 [History] ClonazePAM [KlonoPIN] 2 mg PO BEDTIME #30 tablet 10/30/16 [Rx] Meloxicam 15 mg PO DAILY #14 tablet 10/30/16 [Rx] Calcium Carbonate [Calcium] 500 mg PO BID 06/03/17 [History] Cholecalciferol (Vitamin D3) [Vitamin D3] 5,000 unit PO DAILY 06/03/17 [History] Citalopram Hydrobromide [Celexa] 40 mg PO DAILY 06/03/17 [History] Cyanocobalamin (Vitamin B-12) [Vitamin B-12] 500 mcg PO DAILY 06/03/17 [History] Fish Oil/Taylor-3 Fatty Acids [Fish Oil 1,000 MG] 1 gm PO DAILY 06/03/17 [History ] Folic Acid 1 mg PO DAILY 06/03/17 [History] Meclizine [Antivert] 25 mg PO BID 06/03/17 [History] Methotrexate Sodium [Methotrexate] 10 mg PO WEEKLY 06/03/17 [History] Red Yeast Rice 600 mg PO BID 06/03/17 [History] Triamterene/Hydrochlorothiazid [Triamterene-HCTZ 37.5-25 MG] 1 cap PO DAILY 04/21 [History] Past Medical History HEENT History: Reports: Allergic Rhinitis, Otitis Media, Sinusitis Cardiovascular History: Reports: Hypertension Respiratory History: Reports: Pneumonia, Recurrent Gastrointestinal History: Reports: Other (See Below) Other Gastrointestinal History: chronic nausea Genitourinary History: Reports: Renal Calculus, Other (See Below) Other Genitourinary History: hematuria, bilateral kidney tumors [employer] 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[employer] History: Reports: Musculoskeletal History: Reports: Back Pain, Chronic, Fibromyalgia, Neck Pain, Chronic, Osteoarthritis, Osteoporosis, RA Other Musculoskeletal History: right knee pain, muscle spasms, right shoulder pain, pubic bone pain Neurological History: Reports: Migraines, Vertigo Psychiatric History: Reports: Anxiety, Depression Other Psychiatric History: insomnia Endocrine/Metabolic History: Reports: Diabetes, Type II, Hypothyroidism Hematologic History: Reports: Blood Transfusion(s) Immunologic History: Reports: None Oncologic (Cancer) History: Reports: None Dermatologic History: Reports: Cellulitis Other Dermatologic History: rash - Past Surgical History Head Surgeries/Procedures: Reports: None HEENT Surgical History: Reports: Adenoidectomy, Tonsillectomy Respiratory Surgical History: Reports: None Female Surgical History: Reports: Section, Hysterectomy, Tubal Ligation Endocrine Surgical History: Reports: Thyroidectomy Neurological Surgical History: Reports: None Oncologic Surgical History: Reports: None Dermatological Surgical History: Reports: None Social & Family History - Family History Family Medical History: Noncontributory - Tobacco Use Smoking Status *Q: Current Some Day Smoker Years of Tobacco use: 41 Packs/Tins Daily: 1 - Caffeine Use Caffeine Use: Reports: Coffee - Recreational Drug Use Recreational Drug Use: No - Living Situation & Occupation Living situation: Reports: Single Occupation: Disabled ED ROS GENERAL - Review of Systems Review Of Systems: See Below Constitutional: Denies: Fever, Chills HEENT: Reports: Other (Frontal type headache) Respiratory: Denies: Shortness of Breath, Wheezing, Cough Cardiovascular: Reports: Chest Pain, Lightheadedness Endocrine: Reports: No Symptoms GI/Abdominal: Denies: Abdominal Pain, Diarrhea, Nausea, Vomiting : Reports: No Symptoms Musculoskeletal: Reports: Other (Hurts all over but mostly in her neck and lower back from her fibromyalgia) Skin: Reports: No Symptoms Neurological: Reports: No Symptoms Psychiatric: Reports: Anxiety, Depression. Denies: Suicidal Ideation Hematologic/Lymphatic: Reports: No Symptoms ED EXAM, GENERAL - Physical Exam Exam: See Below Exam Limited By: No Limitations General Appearance: Alert, WD/WN, Mild Distress, Other (The distress she appears to be having is related to emotional stress) Eye Exam: Bilateral Eye: Normal Inspection Ears: Normal External Exam, Normal Canal, Normal TMs Nose: Normal Inspection Throat/Mouth: Normal Inspection, Normal Lips, Normal Oropharynx, Normal Voice, No Airway Compromise Head: Normocephalic Neck: Supple Respiratory/Chest: No Respiratory Distress, Lungs Clear, Normal Breath Sounds Cardiovascular: Regular Rate, Rhythm, No Murmur GI/Abdominal: Soft, Non-Tender Back Exam: Other (She complains of low back pain and neck pain on a chronic basis but she will move and walk and sit up in bed) Extremities: Normal Inspection, Normal Range of Motion Neurological: Alert, Oriented Psychiatric: Anxious, Depressed Mood, Tearful Skin Exam: Warm, Dry EKG INTERPRETATION EKG Date: 07/20/17 Time: 19:06 EKG Interpretation Comments: EKG shows a normal sinus rhythm there is no acute ST or T-wave changes noted there is no ischemia noted, there is a suggestion of some mild LVH. Course - Vital Signs Last Recorded V/S: Last Vital Signs Temp 98 F 07/20/17 19:07 Pulse 80 07/20/17 19:07 Resp 13 07/20/17 19:07 BP 141/72 H 07/20/17 19:07 Pulse Ox 98 07/20/17 19:07 - Orders/Labs/Meds Orders: Active Orders 24 hr Category Date Time Status EKG 12 Lead [EKG Documentation Completion] [RC] ROUTINE Care 07/20/17 19:10 Active CXR [Chest 1V Frontal] [CR] Stat Exams 07/20/17 19:37 Ordered Head wo Cont [CT] Stat Exams 07/20/17 19:37 Taken Labs: Laboratory Tests 07/20/17 07/20/17 Range/Units 19:10 19:10 WBC 7.07 (3.98-10.04) K/mm3 RBC 4.79 (3.98-5.22) M/mm3 Hgb 14.7 (11.2-15.7) gm/L Hct 44.0 (34.1-44.9) % MCV 91.9 (79.4-94.8) fl MCH 30.7 (25.6-32.2) pg MCHC 33.4 (32.2-35.5) g/dl RDW Std Deviation 44.6 (36.4-46.3) fL Plt Count 232 (182-369) K/mm3 MPV 10.7 (9.4-12.3) fl Neut % (Auto) 62.6 (34.0-71.1) % Lymph % (Auto) 25.5 (19.3-51.7) % Davis % (Auto) 7.8 (4.7-12.5) % Eos % (Auto) 3.3 (0.7-5.8) Baso % (Auto) 0.7 (0.1-1.2) % Neut # (Auto) 4.43 (1.56-6.13) K/mm3 Lymph # (Auto) 1.80 (1.18-3.74) K/mm3 Davis # (Auto) 0.55 H (0.24-0.36) K/mm3 Eos # (Auto) 0.23 (0.04-0.36) K/mm3 Baso # (Auto) 0.05 (0.01-0.08) K/mm3 Sodium 138 (136-145) mEq/L Potassium 4.0 (3.5-5.1) mEq/L Chloride 99 (98-107) mEq/L Carbon Dioxide 28 (21-32) mEq/L Anion Gap 15.0 (5-15) BUN 19 H (7-18) mg/dL Creatinine 1.3 H (0.55-1.02) mg/dL Est Cr Clr Drug Dosing 39.24 mL/min Estimated GFR (MDRD) 42 (>60) mL/min BUN/Creatinine Ratio 14.6 (14-18) Glucose 125 H (80-115) mg/dL Calcium 9.9 (8.5-10.1) mg/dL Total Bilirubin 0.5 (0.2-1.0) mg/dL AST 23 (15-37) U/L ALT 30 (14-59) U/L Alkaline Phosphatase 55 (46-116) U/L Troponin I < 0.017 (0.00-0.056) ng/mL Total Protein 7.6 (6.4-8.2) g/dl Albumin 4.3 (3.4-5.0) g/dl Globulin 3.3 gm/dL Albumin/Globulin Ratio 1.3 (1-2) - Radiology Interpretation Free Text/Narrative:: CT scan of the head does not show any acute intracranial process. - Re-Assessments/Exams Free Text/Narrative Re-Assessment/Exam: 07/20/17 21:03 I spoke to the patient and the family regarding the normal CAT scan and EKG and blood work. She began talking about all the emotional problems she is having in her life from where she is living to her kids who are addicts and her interaction with them and their interaction with her and she cried the entire time. The daughter that is with her suggested she go back to counseling and I agreed wholeheartedly. She tends to just stay in her room where she stays and hives away from everybody. She is not drunk coffee for 48 hours and she normally drinks 12 cups a day so I believe her headache is related to caffeine withdrawal. I encouraged her that if she is not going to stop drinking coffee she needs to have a cup when she gets home to ease up this withdrawal symptoms. Departure - Departure Time of Disposition: 21:05 Disposition: Home, Self-Care 01 Condition: Fair Clinical Impression: Caffeine withdrawal, Able to recognize own emotional pain and distress, Labile blood pressure, Acute depression Headache Qualifiers: Headache type: unspecified Headache chronicity pattern: acute headache Intractability: not intractable Qualified Code(s): R51 - Headache Referrals: Gala Marshall PA [Primary Care Provider] - Forms: ED Department Discharge Additional Instructions: Since you are not going to stop drinking coffee have a cup when you get home to ease up your Headache, I would encourage you very much to go see a counselor to talk out your emotional distress and pain and get help with your depression, you need to follow up with your family doctor regarding your fibromyalgia and rheumatoid arthritis pain to see if there is something they can provide that is not addicting since there are many medicines out there that can help that are not addicting, return to the ER if needed - My Orders Last 24 Hours: My Active Orders 07/20/17 19:10 EKG 12 Lead [EKG Documentation Completion] [RC] ROUTINE 07/20/17 19:37 CXR [Chest 1V Frontal] [CR] Stat Head wo Cont [CT] Stat - Assessment/Plan Last 24 Hours: My Active Orders 07/20/17 19:10 EKG 12 Lead [EKG Documentation Completion] [RC] ROUTINE 07/20/17 19:37 CXR [Chest 1V Frontal] [CR] Stat Head wo Cont [CT] Stat
--- NOTE | 2017-07-22 08:30 | CR ---
Chest: Frontal view of the chest was obtained. Comparison: No prior chest x-ray. Heart size and mediastinum are normal. Lungs are clear without acute parenchymal densities. Bony structures are grossly intact. Impression: 1. Nothing acute is seen on frontal chest x-ray. Diagnostic code #1
--- NOTE | 2017-07-22 08:30 | CT ---
Head CT Technique: Multiple axial sections through the brain were obtained. Intravenous contrast was not utilized. Comparison: Prior head CT study of 10/03/16. Findings: Ventricles along the basal cisterns and sulci over the convexities are mildly prominent. Minimal diminished density noted within portions of periventricular white matter compatible with minimal small vessel ischemic demyelination change. No other abnormal parenchymal densities are seen. No evidence of intracranial hemorrhage. No midline shift or mass effect is seen. Mild atherosclerotic calcification is seen within the carotid siphons. No acute calvarial abnormality is identified. Impression: 1. Minimal senescent change. No acute intracranial abnormality is identified. No significant change is seen from prior head CT exam. Diagnostic code #2 I agree with preliminary report from [facility], finalized at 07/20/17, 9:42 PM Central Time
== END 2017-07-20 21:18 | disposition home or self-care (01) ==
LOC: JD.ED 18:59
DX: F32.9 Major depressive disorder, single episode, unspecified (principal); F15.93 Other stimulant use, unspecified with withdrawal; R51 Headache; R09.89 Other specified symptoms and signs involving the circulatory and respiratory systems; I10 Essential (primary) hypertension; E11.9 Type 2 diabetes mellitus without complications; E03.9 Hypothyroidism, unspecified; F17.210 Nicotine dependence, cigarettes, uncomplicated; Z88.5 Allergy status to narcotic agent; Z91.040 Latex allergy status; Z88.2 Allergy status to sulfonamides; Z88.0 Allergy status to penicillin; Z88.8 Allergy status to other drugs, medicaments and biological substances; Z79.899 Other long term (current) drug therapy
CPT/HCPCS: 36415; 70450; 70450-26; 71045; 71045-26; 80053; 84484; 85025; 93005; 93010; 99284; 99285-25

== ENCOUNTER 2017-10-17 13:26 | Emergency (ER) | payer MEDICARE ==
[2017-10-17 13:41] VITALS: BP 139/68
--- NOTE | 2017-10-17 15:39 | EDM.PDOC ---
ED HPI GENERAL MEDICAL PROBLEM - General Chief Complaint: Upper Extremity Injury/Pain Stated Complaint: LEFT SIDE PAIN Time Seen by Provider: 10/17/17 13:44 Source of Information: Reports: Patient, RN Notes Reviewed - History of Present Illness INITIAL COMMENTS - FREE TEXT/NARRATIVE: 61-year-old female tripped and fell on her driveway about 2 weeks ago. On the right side injuring the right shoulder and her right rib cage. She has been trying to get into the clinic but has been unable to get an appointment. She is having continued pain of the right shoulder and right rib cage primarily with motion. She also does have pain with deep breathing or coughing. No head, neck, hip or leg injury. Right Shoulder Pain Score (Numeric/FACES): 9 - Related Data Allergies Allergy/AdvReac Type Severity Reaction Status Date / Time codeine Allergy Airway Verified 10/17/17 13:36 Tightness fentanyl [From Duragesic] Allergy Airway Verified 10/17/17 13:36 Tightness latex Allergy Rash Verified 10/17/17 13:36 morphine Allergy Hives Verified 10/17/17 13:36 pregabalin [From Lyrica] Allergy Hives Verified 10/17/17 13:36 Sulfa (Sulfonamide Allergy Rash Verified 10/17/17 13:36 Antibiotics) Penicillins AdvReac Muscle Verified 10/17/17 13:36 Aches [id number]-Ooy Reductase AdvReac Vomiting Verified 10/17/17 13:36 Inhibitor Home Meds: Home Meds Gabapentin [Neurontin] 800 mg PO TID 05/21/14 [History] Levothyroxine [Synthroid] 50 mcg PO DAILY 09/27/16 [History] Pantoprazole [ProTONIX] 40 mg PO DAILY 09/27/16 [History] sitaGLIPtin Phos/Metformin HCl [Janumet 50-1,000 MG] 1 each PO BID 09/27/16 [ History] tiZANidine HCl [Tizanidine HCl] 4 mg PO Q8H PRN 09/27/16 [History] traZODone HCl [Trazodone HCl] 100 mg PO BEDTIME 09/27/16 [History] ClonazePAM [KlonoPIN] 2 mg PO BEDTIME #30 tablet 10/30/16 [Rx] Calcium Carbonate [Calcium] 500 mg PO BID 06/03/17 [History] Cholecalciferol (Vitamin D3) [Vitamin D3] 5,000 unit PO DAILY 06/03/17 [History] Citalopram Hydrobromide [Celexa] 40 mg PO DAILY 06/03/17 [History] Cyanocobalamin (Vitamin B-12) [Vitamin B-12] 500 mcg PO DAILY 06/03/17 [History] Fish Oil/[place]-3 Fatty Acids [Fish Oil 1,000 MG] 1 gm PO DAILY 06/03/17 [History ] Folic Acid 1 mg PO DAILY 06/03/17 [History] Meclizine [Antivert] 25 mg PO BID 06/03/17 [History] Methotrexate Sodium [Methotrexate] 10 mg PO WEEKLY 06/03/17 [History] Red Yeast Rice 600 mg PO BID 06/03/17 [History] Triamterene/Hydrochlorothiazid [Triamterene-HCTZ 37.5-25 MG] 1 cap PO DAILY 04/21 [History] Hydroxychloroquine [Plaquenil] 200 mg PO BID 10/17/17 [History] Nabumetone. 500 mg PO BID 10/17/17 [History] Past Medical History HEENT History: Reports: Allergic Rhinitis, Otitis Media, Sinusitis Cardiovascular History: Reports: Hypertension Respiratory History: Reports: Pneumonia, Recurrent Gastrointestinal History: Reports: Other (See Below) Other Gastrointestinal History: chronic nausea Genitourinary History: Reports: Renal Calculus, Other (See Below) Other Genitourinary History: hematuria, bilateral kidney tumors [employer] History: Reports: Musculoskeletal History: Reports: Back Pain, Chronic, Fibromyalgia, Neck Pain, Chronic, Osteoarthritis, Osteoporosis, RA Other Musculoskeletal History: right knee pain, muscle spasms, right shoulder pain, pubic bone pain Neurological History: Reports: Migraines, Vertigo Psychiatric History: Reports: Anxiety, Depression Other Psychiatric History: insomnia Endocrine/Metabolic History: Reports: Diabetes, Type II, Hypothyroidism Hematologic History: Reports: Blood Transfusion(s) Immunologic History: Reports: None Oncologic (Cancer) History: Reports: None Dermatologic History: Reports: Cellulitis Other Dermatologic History: rash - Past Surgical History Head Surgeries/Procedures: Reports: None HEENT Surgical History: Reports: Adenoidectomy, Tonsillectomy Respiratory Surgical History: Reports: None Female Surgical History: Reports: Section, Hysterectomy, Tubal Ligation Endocrine Surgical History: Reports: Thyroidectomy Neurological Surgical History: Reports: None Oncologic Surgical History: Reports: None Dermatological Surgical History: Reports: None Social & Family History - Family History Family Medical History: Noncontributory - Tobacco Use Smoking Status *Q: Current Every Day Smoker Years of Tobacco use: 30 Packs/Tins Daily: 0.7 - Caffeine Use Caffeine Use: Reports: Coffee - Recreational Drug Use Recreational Drug Use: No - Living Situation & Occupation Living situation: Reports: Single Occupation: Disabled Review of Systems - Review of Systems Review Of Systems: See Below Eyes: Reports: No Symptoms Ears: Reports: No Symptoms Nose: Reports: No Symptoms Mouth/Throat: Reports: No Symptoms Respiratory: Reports: Pleuritic Chest Pain. Denies: Shortness of Breath Cardiovascular: Reports: Chest Pain GI/Abdominal: Denies: Abdominal Pain (With movement and deep breathing right chest), Nausea, Vomiting Musculoskeletal: Reports: Shoulder Pain (Right-sided), Arm Pain (Right upper arm ). Denies: Neck Pain, Back Pain, Leg Pain Skin: Reports: No Symptoms ED EXAM, GENERAL - Physical Exam Exam: See Below General Appearance: Alert, Mild Distress Eye Exam: Bilateral Eye: Proptosis Ears: Normal External Exam Nose: Normal Inspection Throat/Mouth: Normal Inspection Head: Atraumatic Neck: Supple Respiratory/Chest: No Respiratory Distress, Lungs Clear, Normal Breath Sounds, Other (Tenderness right lateral rib cage, no bruising or swelling visible) Cardiovascular: Regular Rate, Rhythm GI/Abdominal: Soft, Non-Tender Back Exam: Normal Inspection. No: Vertebral Tenderness Extremities: Other (Tenderness right shoulder, pain with abduction, no visible swelling or deformity) Neurological: Alert, Oriented, No Motor/Sensory Deficits Course - Vital Signs Last Recorded V/S: Last Vital Signs Temp 96.1 F 10/17/17 13:39 Pulse 89 10/17/17 13:39 Resp 16 10/17/17 13:39 BP 139/68 10/17/17 13:39 Pulse Ox 98 10/17/17 13:39 - Orders/Labs/Meds Orders: Active Orders 24 hr Category Date Time Status Ribs 2V w Chest Rt [CR] Stat Exams 10/17/17 14:05 Taken Shoulder Comp Rt [CR] Stat Exams 10/17/17 14:05 Taken - Re-Assessments/Exams Free Text/Narrative Re-Assessment/Exam: 10/17/17 15:42 X-rays no fracture Departure - Departure Time of Disposition: 15:37 Disposition: Home, Self-Care 01 Condition: Fair Clinical Impression: Fall Qualifiers: Encounter type: initial encounter Qualified Code(s): W19.XXXA - Unspecified fall, initial encounter Contusion of right shoulder Qualifiers: Encounter type: initial encounter Qualified Code(s): S40.011A - Contusion of right shoulder, initial encounter Chest wall contusion Qualifiers: Encounter type: initial encounter Laterality: right Qualified Code(s): S20.211A - Contusion of right front wall of thorax, initial encounter - Discharge Information Referrals: PCP,None [Primary Care Provider] - Forms: ED Department Discharge Additional Instructions: Continue to rest right arm, no heavy lifting, see her physical therapist as planned for further treatment to try to help this heal more quickly. Follow-up with Dr. Kemp or your regular medical provider as needed. - My Orders Last 24 Hours: My Active Orders 10/17/17 14:05 Ribs 2V w Chest Rt [CR] Stat Shoulder Comp Rt [CR] Stat - Assessment/Plan Last 24 Hours: My Active Orders 10/17/17 14:05 Ribs 2V w Chest Rt [CR] Stat Shoulder Comp Rt [CR] Stat
--- NOTE | 2017-10-17 17:15 | CR ---
Right ribs: Three views of the right ribs were obtained. Comparison: Prior chest x-ray of 07/20/17. Right lung is clear. Slight degenerative endplate spurring is noted within the thoracic spine. No discrete right-sided rib abnormality is appreciated. Impression: 1. Incidental findings. No acute right-sided rib abnormality is appreciated. Diagnostic code #2
--- NOTE | 2017-10-17 17:15 | CR ---
Right shoulder: Three views of the right shoulder were obtained. Comparison: Prior right shoulder exam of 11/09/16. Glenohumeral joint and acromioclavicular joint appear within normal limits. No fracture or other bony abnormality is seen. Surgical clips seen at the base of the neck. Stable calcification seen off the inferior glenoid which is felt to be incidental. Impression: 1. Incidental findings. No significant change from previous right shoulder study. Diagnostic code #2
== END 2017-10-17 13:45 | disposition home or self-care (01) ==
LOC: JD.ED 13:26
DX: S40.011A Contusion of right shoulder, initial encounter (principal); S20.211A Contusion of right front wall of thorax, initial encounter; I10 Essential (primary) hypertension; Z87.01 Personal history of pneumonia (recurrent); E03.9 Hypothyroidism, unspecified; F17.210 Nicotine dependence, cigarettes, uncomplicated; Z88.5 Allergy status to narcotic agent; Z79.899 Other long term (current) drug therapy; Z88.2 Allergy status to sulfonamides; Z91.040 Latex allergy status; W01.0XXA Fall on same level from slipping, tripping and stumbling without subsequent striking against object, initial encounter
CPT/HCPCS: 71101-26-RT; 71101-RT; 73030-26-RT; 73030-RT; 99283

== ENCOUNTER 2017-11-22 13:57 | Emergency (ER) | payer MEDICARE ==
[2017-11-22 14:15] VITALS: BP 138/82
[2017-11-22] MEDS ORDERED: Sodium Chloride 0.9% 10 ML Syringe FLUSH PRN (14:43)
[2017-11-22] MEDS ORDERED: LORazepam 2 MG/ML SDV IVPUSH ONE (14:43)
[2017-11-22] MEDS ORDERED: Sodium Chloride 0.9% 1,000 ML IV SCH (14:45)
--- NOTE | 2017-11-22 15:35 | EDM.PDOC ---
ED HPI GENERAL MEDICAL PROBLEM - General Chief Complaint: Neurological Problem Stated Complaint: SEIZURES X 4 DAYS Time Seen by Provider: 11/22/17 14:33 Source of Information: Reports: Patient, RN Notes Reviewed - History of Present Illness INITIAL COMMENTS - FREE TEXT/NARRATIVE: 62-year-old female states she has been having "spasms or seizure type sensation of her entire body off-and-on for the past 4 days. She states she was prescribed Wellbutrin several weeks ago and feels strongly that her symptoms are secondary to being on the Wellbutrin. She states that she did have seizures when young at around 20 years of age but has not had any seizure history since that time. No chest pain or difficulty breathing. She states her appetite has been diminished. No abdominal pain vomiting or diarrhea. She denies headache. Neck Pain Score (Numeric/FACES): 5 - Related Data Allergies Allergy/AdvReac Type Severity Reaction Status Date / Time codeine Allergy Airway Verified 11/22/17 14:10 Tightness fentanyl [From Duragesic] Allergy Airway Verified 11/22/17 14:10 Tightness latex Allergy Rash Verified 11/22/17 14:10 morphine Allergy Hives Verified 11/22/17 14:10 pregabalin [From Lyrica] Allergy Hives Verified 11/22/17 14:10 Sulfa (Sulfonamide Allergy Rash Verified 11/22/17 14:10 Antibiotics) Penicillins AdvReac Muscle Verified 11/22/17 14:10 Aches [id number]-[id number] Reductase AdvReac Vomiting Verified 11/22/17 14:10 Inhibitor Home Meds: Home Meds Gabapentin [Neurontin] 800 mg PO TID 05/21/14 [History] Levothyroxine [Synthroid] 50 mcg PO DAILY 09/27/16 [History] Pantoprazole [ProTONIX] 40 mg PO DAILY 09/27/16 [History] sitaGLIPtin Phos/Metformin HCl [Janumet 50-1,000 MG] 1 each PO BID 09/27/16 [ History] tiZANidine HCl [Tizanidine HCl] 4 mg PO Q8H PRN 09/27/16 [History] traZODone HCl [Trazodone HCl] 100 mg PO BEDTIME 09/27/16 [History] ClonazePAM [KlonoPIN] 2 mg PO BEDTIME #30 tablet 10/30/16 [Rx] Calcium Carbonate [Calcium] 500 mg PO BID 06/03/17 [History] Cholecalciferol (Vitamin D3) [Vitamin D3] 5,000 unit PO DAILY 06/03/17 [History] Citalopram Hydrobromide [Celexa] 40 mg PO DAILY 06/03/17 [History] Cyanocobalamin (Vitamin B-12) [Vitamin B-12] 500 mcg PO DAILY 06/03/17 [History] Fish Oil/[place]-3 Fatty Acids [Fish Oil 1,000 MG] 1 gm PO DAILY 06/03/17 [History ] Folic Acid 1 mg PO DAILY 06/03/17 [History] Meclizine [Antivert] 25 mg PO BID 06/03/17 [History] Methotrexate Sodium [Methotrexate] 10 mg PO WEEKLY 06/03/17 [History] Red Yeast Rice 600 mg PO BID 06/03/17 [History] Triamterene/Hydrochlorothiazid [Triamterene-HCTZ 37.5-25 MG] 1 cap PO DAILY 04/21 [History] Hydroxychloroquine [Plaquenil] 200 mg PO BID 10/17/17 [History] Nabumetone. 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: Musculoskeletal History: Reports: Back Pain, Chronic, Fibromyalgia, Neck Pain, Chronic, Osteoarthritis, Osteoporosis, RA Other Musculoskeletal History: right knee pain, muscle spasms, right shoulder pain, pubic bone pain Neurological History: Reports: Migraines, Vertigo Psychiatric History: Reports: Anxiety, Depression Other Psychiatric History: insomnia Endocrine/Metabolic History: Reports: Diabetes, Type II, Hypothyroidism Hematologic History: Reports: Blood Transfusion(s) Immunologic History: Reports: None Oncologic (Cancer) History: Reports: None Dermatologic History: Reports: Cellulitis Other Dermatologic History: rash - Past Surgical History Head Surgeries/Procedures: Reports: None HEENT Surgical History: Reports: Adenoidectomy, Tonsillectomy Respiratory Surgical History: Reports: None Female Surgical History: Reports: Section, Hysterectomy, Tubal Ligation Endocrine Surgical History: Reports: Thyroidectomy Neurological Surgical History: Reports: None Oncologic Surgical History: Reports: None Dermatological Surgical History: Reports: None Social & Family History - Family History Family Medical History: Noncontributory - Tobacco Use Smoking Status *Q: Former Smoker Years of Tobacco use: 40 Used Tobacco, but Quit: Yes Month/Year Tobacco Last Used: 2017 - Caffeine Use Caffeine Use: Reports: Coffee - Recreational Drug Use Recreational Drug Use: No - Living Situation & Occupation Living situation: Reports: Single Occupation: Disabled ED ROS GENERAL - Review of Systems Review Of Systems: See Below Constitutional: Denies: Fever, Chills, Diaphoresis HEENT: Denies: Sinus Problem, Throat Pain Respiratory: Denies: Shortness of Breath Cardiovascular: Denies: Chest Pain GI/Abdominal: Reports: Decreased Appetite. Denies: Abdominal Pain, Nausea, Vomiting Musculoskeletal: Reports: Back Pain (Chronic, history of fibromyalgia). Denies : Neck Pain, Shoulder Pain Skin: Denies: Rash Neurological: Reports: Dizziness (Mild). Denies: Trouble Speaking, Difficulty Walking ED EXAM, NEURO - Physical Exam Exam: See Below General Appearance: Alert, Anxious (Mild) Eye Exam: Bilateral Eye: PERRL Throat/Mouth: Normal Inspection Head Exam: No: Facial Swelling Neck: Supple, Full Range of Motion Respiratory/Chest: No Respiratory Distress, Lungs Clear, Normal Breath Sounds Cardiovascular: Regular Rate, Rhythm GI/Abdominal: Soft, Non-Tender Neurological: Alert, No Motor/Sensory Deficits Back Exam: No: CVA Tenderness (L), CVA Tenderness (R) Skin Exam: Warm, Dry, Normal Color Course - Vital Signs Last Recorded V/S: Last Vital Signs Temp 97.7 F 11/22/17 14:10 Pulse 86 11/22/17 14:10 Resp 16 11/22/17 14:10 BP 138/82 11/22/17 14:10 Pulse Ox 98 11/22/17 14:10 - Orders/Labs/Meds Orders: Active Orders 24 hr Category Date Time Status Peripheral IV Care [RC] . DIRECTED Care 11/22/17 14:43 Active Sodium Chloride 0.9% [Normal Saline] 1,000 ml Med 11/22/17 14:45 Active IV ONETIME Sodium Chloride 0.9% [Saline Flush] Med 11/22/17 14:43 Active 10 ml FLUSH ASDIRECTED PRN Peripheral IV Insertion Adult [OM.PC] Stat Oth 11/22/17 14:43 Ordered Medication Orders Sodium Chloride (Normal Saline) 1,000 mls @ 999 mls/hr IV ONETIME HECTOR Last Admin: 11/22/17 15:12 Dose: 999 mls/hr Sodium Chloride (Saline Flush) 10 ml FLUSH ASDIRECTED PRN PRN Reason: Keep Vein Open Last Admin: 11/22/17 15:15 Dose: 10 ml Labs: Laboratory Tests 11/22/17 11/22/17 Range/Units 15:01 15:01 WBC 6.63 (3.98-10.04) K/mm3 RBC 4.16 (3.98-5.22) M/mm3 Hgb 13.3 (11.2-15.7) gm/L Hct 39.1 (34.1-44.9) % MCV 94.0 (79.4-94.8) fl MCH 32.0 (25.6-32.2) pg MCHC 34.0 (32.2-35.5) g/dl RDW Std Deviation 45.1 (36.4-46.3) fL Plt Count 205 (182-369) K/mm3 MPV 10.1 (9.4-12.3) fl Neut % (Auto) 66.9 (34.0-71.1) % Lymph % (Auto) 21.7 (19.3-51.7) % [place] % (Auto) 7.4 (4.7-12.5) % Eos % (Auto) 3.2 (0.7-5.8) Baso % (Auto) 0.5 (0.1-1.2) % Neut # (Auto) 4.44 (1.56-6.13) K/mm3 Lymph # (Auto) 1.44 (1.18-3.74) K/mm3 [place] # (Auto) 0.49 H (0.24-0.36) K/mm3 Eos # (Auto) 0.21 (0.04-0.36) K/mm3 Baso # (Auto) 0.03 (0.01-0.08) K/mm3 Sodium 135 L (136-145) mEq/L Potassium 3.8 (3.5-5.1) mEq/L Chloride 101 (98-107) mEq/L Carbon Dioxide 25 (21-32) mEq/L Anion Gap 12.8 (5-15) BUN 30 H (7-18) mg/dL Creatinine 1.8 H (0.55-1.02) mg/dL Est Cr Clr Drug Dosing 27.98 mL/min Estimated GFR (MDRD) 29 (>60) mL/min BUN/Creatinine Ratio 16.7 (14-18) Glucose 125 H (80-115) mg/dL Calcium 9.9 (8.5-10.1) mg/dL Total Bilirubin 0.6 (0.2-1.0) mg/dL AST 26 (15-37) U/L ALT 27 (14-59) U/L Alkaline Phosphatase 49 (46-116) U/L Total Protein 6.9 (6.4-8.2) g/dl Albumin 3.8 (3.4-5.0) g/dl Globulin 3.1 gm/dL Albumin/Globulin Ratio 1.2 (1-2) Meds: Medications Generic Name Dose Route Start Last Admin Trade Name Freq PRN Reason Stop Dose Admin Sodium Chloride 1,000 mls @ 999 mls/hr 11/22/17 14:45 11/22/17 15:12 Normal Saline IV 999 mls/hr ONETIME HECTOR Administration Sodium Chloride 10 ml 11/22/17 14:43 11/22/17 15:15 Saline Flush FLUSH 10 ml ASDIRECTED PRN Administration Keep Vein Open Discontinued Medications Generic Name Dose Route Start Last Admin Trade Name Freq PRN Reason Stop Dose Admin Lorazepam 0.5 mg 11/22/17 14:43 11/22/17 15:15 Ativan IVPUSH 11/22/17 14:44 0.5 mg ONETIME ONE Administration - Re-Assessments/Exams Free Text/Narrative Re-Assessment/Exam: 11/22/17 17:05 Feeling better after 1 L IV fluid, Ativan 0.5 mg IV. He is not currently having any spasms twitching or jerking. She feels up to going home. She is asking what will happen once the Ativan wears off. I told her that we'll be her medication for today, she can take another dose tomorrow morning and then again tomorrow evening. 5 mg for tomorrow morning and evening prescribed. Discharge instructions as documented. Departure - Departure Time of Disposition: 16:57 Disposition: Home, Self-Care 01 Condition: Fair Clinical Impression: Involuntary muscle contractions - Discharge Information Prescriptions: LORazepam [Ativan] 0.5 mg PO BID #2 tab Referrals: Félix Marshall PA [Primary Care Provider] - Forms: ED Department Discharge Additional Instructions: You have been given Ativan 0.5 mg IV while here in the ED for muscle and nerve relaxation along with 1 L of fluid for mild dehydration. Continue to drink plenty of water to maintain hydration. You may take Ativan 0.5 mg again tomorrow morning and then once again tomorrow evening if needed for further muscle contraction and tightness type symptoms. Follow-up with your regular medical provider early next week for recheck. Call [phone] for appointment. - My Orders Last 24 Hours: My Active Orders 11/22/17 14:43 Peripheral IV Care [RC] . DIRECTED Sodium Chloride 0.9% [Saline Flush] 10 ml FLUSH ASDIRECTED PRN Peripheral IV Insertion Adult [OM.PC] Stat 11/22/17 14:45 Sodium Chloride 0.9% [Normal Saline] 1,000 ml IV ONETIME - Assessment/Plan Last 24 Hours: My Active Orders 11/22/17 14:43 Peripheral IV Care [RC] . DIRECTED Sodium Chloride 0.9% [Saline Flush] 10 ml FLUSH ASDIRECTED PRN Peripheral IV Insertion Adult [OM.PC] Stat 11/22/17 14:45 Sodium Chloride 0.9% [Normal Saline] 1,000 ml IV ONETIME
== END 2017-11-22 15:20 | disposition home or self-care (01) ==
LOC: JD.ED 13:57
DX: M62.40 Contracture of muscle, unspecified site (principal); I10 Essential (primary) hypertension; Z79.899 Other long term (current) drug therapy; E11.9 Type 2 diabetes mellitus without complications; Z87.891 Personal history of nicotine dependence; Z88.5 Allergy status to narcotic agent; Z91.040 Latex allergy status; Z88.8 Allergy status to other drugs, medicaments and biological substances
CPT/HCPCS: 36415; 80053; 85025; 96361; 96374; 99285; J2060; J7040; J7050

== ENCOUNTER 2017-11-22 17:39 | Emergency (ER) | payer MEDICARE ==
[2017-11-22] MEDS ORDERED: Sodium Chloride 0.9% 10 ML Syringe FLUSH PRN (17:54)
[2017-11-22] MEDS ORDERED: Sodium Chloride 0.9% 1,000 ML IV SCH (18:00)
--- NOTE | 2017-11-22 18:15 | EDM.PDOC ---
ED HPI GENERAL MEDICAL PROBLEM - General Chief Complaint: Neuro Symptoms/Deficits Stated Complaint: BROKEN SPEECH/ POSS STROKE Time Seen by Provider: 11/22/17 17:51 Source of Information: Reports: Patient, RN Notes Reviewed - History of Present Illness INITIAL COMMENTS - FREE TEXT/NARRATIVE: 62-year-old female turns to the emergency department with speech difficulty. She was evaluated about 2-1/2 hours ago for sensation of having "seizures". Please refer to that record for details of that visit. On exam there was no evidence of seizure activity. The patient was awake, answering questions appropriately. Moderately anxious, having sensation of intermittent spasm and tightness of her arms and legs but no visible contractions or tonic-clonic activity, no speech difficulty. Lab work was done which came back relatively normal. She was given Ativan 0.5 mg IV and also 1 L of fluid. She walked out of our department in no apparent distress. Apparently in route to the pharmacy or at the pharmacy to supervisor opening and picking some medication she began having quite severe speech difficulty. Eyes focal weakness or clumsiness of hands arms or legs. Numbness of hands arms or legs. States that she does have posterior headache, left neck and left shoulder discomfort. Anterior chest tightness or pain. She also does deny nausea or vomiting. Headache Pain Score (Numeric/FACES): 10 - Related Data Allergies Allergy/AdvReac Type Severity Reaction Status Date / Time codeine Allergy Airway Verified 11/22/17 14:10 Tightness fentanyl [From Duragesic] Allergy Airway Verified 11/22/17 14:10 Tightness latex Allergy Rash Verified 11/22/17 14:10 morphine Allergy Hives Verified 11/22/17 14:10 pregabalin [From Lyrica] Allergy Hives Verified 11/22/17 14:10 Sulfa (Sulfonamide Allergy Rash Verified 11/22/17 14:10 Antibiotics) Penicillins AdvReac Muscle Verified 11/22/17 14:10 Aches [id number] Reductase AdvReac Vomiting Verified 11/22/17 14:10 Inhibitor Home Meds: Home Meds Gabapentin [Neurontin] 800 mg PO TID 05/21/14 [History] Levothyroxine [Synthroid] 50 mcg PO DAILY 09/27/16 [History] Pantoprazole [ProTONIX] 40 mg PO DAILY 09/27/16 [History] sitaGLIPtin Phos/Metformin HCl [Janumet 50-1,000 MG] 1 each PO BID 09/27/16 [ History] tiZANidine HCl [Tizanidine HCl] 4 mg PO Q8H PRN 09/27/16 [History] traZODone HCl [Trazodone HCl] 100 mg PO BEDTIME 09/27/16 [History] ClonazePAM [KlonoPIN] 2 mg PO BEDTIME #30 tablet 10/30/16 [Rx] Calcium Carbonate [Calcium] 500 mg PO BID 06/03/17 [History] Cholecalciferol (Vitamin D3) [Vitamin D3] 5,000 unit PO DAILY 06/03/17 [History] Citalopram Hydrobromide [Celexa] 40 mg PO DAILY 06/03/17 [History] Cyanocobalamin (Vitamin B-12) [Vitamin B-12] 500 mcg PO DAILY 06/03/17 [History] Fish Oil/[place]-3 Fatty Acids [Fish Oil 1,000 MG] 1 gm PO DAILY 06/03/17 [History ] Folic Acid 1 mg PO DAILY 06/03/17 [History] Meclizine [Antivert] 25 mg PO BID 06/03/17 [History] Methotrexate Sodium [Methotrexate] 10 mg PO WEEKLY 06/03/17 [History] Red Yeast Rice 600 mg PO BID 06/03/17 [History] Triamterene/Hydrochlorothiazid [Triamterene-HCTZ 37.5-25 MG] 1 cap PO DAILY 04/21 [History] Hydroxychloroquine [Plaquenil] 200 mg PO BID 10/17/17 [History] Nabumetone. 500 mg PO BID 10/17/17 [History] LORazepam [Ativan] 0.5 mg PO BID #2 tab 11/22/17 [Rx] Past Medical History HEENT History: Reports: Allergic Rhinitis, Otitis Media, Sinusitis Cardiovascular History: Reports: Hypertension Respiratory History: Reports: Pneumonia, Recurrent Gastrointestinal History: Reports: Other (See Below) Other Gastrointestinal History: chronic nausea Genitourinary History: Reports: Renal Calculus, Other (See Below) Other Genitourinary History: hematuria, bilateral kidney tumors PADDER History: Reports: Musculoskeletal History: Reports: Back Pain, Chronic, Fibromyalgia, Neck Pain, Chronic, Osteoarthritis, Osteoporosis, RA Other Musculoskeletal History: right knee pain, muscle spasms, right shoulder pain, pubic bone pain Neurological History: Reports: Migraines, Vertigo Psychiatric History: Reports: Anxiety, Depression Other Psychiatric History: insomnia Endocrine/Metabolic History: Reports: Diabetes, Type II, Hypothyroidism Hematologic History: Reports: Blood Transfusion(s) Immunologic History: Reports: None Oncologic (Cancer) History: Reports: None Dermatologic History: Reports: Cellulitis Other Dermatologic History: rash - Past Surgical History Head Surgeries/Procedures: Reports: None HEENT Surgical History: Reports: Adenoidectomy, Tonsillectomy Respiratory Surgical History: Reports: None Female Surgical History: Reports: Section, Hysterectomy, Tubal Ligation Endocrine Surgical History: Reports: Thyroidectomy Neurological Surgical History: Reports: None Oncologic Surgical History: Reports: None Dermatological Surgical History: Reports: None Social & Family History - Family History Family Medical History: Noncontributory - Tobacco Use Smoking Status *Q: Current Every Day Smoker Years of Tobacco use: 30 Packs/Tins Daily: 0.2 - Caffeine Use Caffeine Use: Reports: Coffee, Tea - Recreational Drug Use Recreational Drug Use: No - Living Situation & Occupation Living situation: Reports: Single Occupation: Disabled ED ROS GENERAL - Review of Systems Review Of Systems: See Below Constitutional: Denies: Fever, Chills, Diaphoresis HEENT: Denies: Throat Pain, Throat Swelling Respiratory: Denies: Shortness of Breath Cardiovascular: Denies: Chest Pain GI/Abdominal: Denies: Abdominal Pain, Nausea, Vomiting Musculoskeletal: Reports: Shoulder Pain. Denies: Arm Pain, Back Pain, Leg Pain Skin: Reports: No Symptoms Neurological: Reports: Headache, Trouble Speaking, Change in Speech. Denies: Numbness, Tingling, Weakness ED EXAM, NEURO - Physical Exam Exam: See Below General Appearance: Alert, Anxious, Moderate Distress Eye Exam: Bilateral Eye: PERRL, Other (Extraocular motion conjugate) Throat/Mouth: Normal Inspection, Other (No facial droop) Head Exam: Atraumatic. No: Facial Swelling Neck: Supple Respiratory/Chest: No Respiratory Distress, Lungs Clear, Normal Breath Sounds Cardiovascular: Regular Rate, Rhythm GI/Abdominal: Soft, Non-Tender Neurological: Alert, No Motor/Sensory Deficits, Oriented x 3, Other (Expressive aphasia speech type deficit, patient states 2 or 3 words at a time with difficulty, speech very slow and hesitant, finger to nose testing normal) Back Exam: No: CVA Tenderness (L), CVA Tenderness (R) Skin Exam: Warm, Dry, Normal Color Course - Vital Signs Last Recorded V/S: Last Vital Signs Temp 97.2 F 11/22/17 17:56 Pulse 82 11/22/17 17:56 Resp 14 11/22/17 17:56 BP 127/81 11/22/17 17:56 Pulse Ox 98 11/22/17 17:56 - Orders/Labs/Meds Orders: Active Orders 24 hr Category Date Time Status Blood Glucose Check, Bedside [RC] ONETIME Care 11/22/17 18:06 Active EKG 12 Lead [EKG Documentation Completion] [RC] STAT Care 11/22/17 17:52 Active Peripheral IV Care [] . DIRECTED Care 11/22/17 17:54 Active Head wo Cont [CT] Stat Exams 11/22/17 17:52 Taken Sodium Chloride 0.9% [Normal Saline] 1,000 ml Med 11/22/17 18:00 Active IV ASDIRECTED Sodium Chloride 0.9% [Saline Flush] Med 11/22/17 17:54 Active 10 ml FLUSH ASDIRECTED PRN Peripheral IV Insertion Adult [OM.PC] Stat Oth 11/22/17 17:54 Ordered Medication Orders Sodium Chloride (Normal Saline) 1,000 mls @ 150 mls/hr IV ASDIRECTED HECTOR Last Admin: 11/22/17 18:11 Dose: 150 mls/hr Sodium Chloride (Saline Flush) 10 ml FLUSH ASDIRECTED PRN PRN Reason: Keep Vein Open Last Admin: 11/22/17 18:12 Dose: 10 ml Labs: Laboratory Tests 11/22/17 Range/Units 17:47 POC Glucose 93 (80-115) mg/dL Meds: Medications Generic Name Dose Route Start Last Admin Trade Name Freq PRN Reason Stop Dose Admin Sodium Chloride 1,000 mls @ 150 mls/hr 11/22/17 18:00 11/22/17 18:11 Normal Saline IV 150 mls/hr ASDIRECTED HECTOR Administration Sodium Chloride 10 ml 11/22/17 17:54 11/22/17 18:12 Saline Flush FLUSH 10 ml ASDIRECTED PRN Administration Keep Vein Open Discontinued Medications Generic Name Dose Route Start Last Admin Trade Name Freq PRN Reason Stop Dose Admin Acetaminophen 975 mg 11/22/17 18:45 Tylenol PO 11/22/17 18:46 NOW ONE Aspirin 324 mg 11/22/17 18:58 11/22/17 19:03 Aspirin PO 11/22/17 18:59 324 mg ONETIME ONE Administration Clonazepam 0.5 mg 11/22/17 18:43 Klonopin PO 11/22/17 18:44 ONETIME ONE - Re-Assessments/Exams Free Text/Narrative Re-Assessment/Exam: 11/22/17 19:00. Head CT is normal. Labs were done just a few hours ago so those have not been repeated. Have discussed symptoms with our Hopsitalist environmental science instructor who is not comfortable admitting to our facility. Also we do not have MRI available until next Saturday at the earliest which is 3 days from now. He and Dr Ingram, Hospitalist do accept patient in transfer. She will be transported by ground ambulance. Departure - Departure Time of Disposition: 19:00 Disposition: DC/Tfer to Acute Hospital 02 Condition: Fair Clinical Impression: Expressive aphasia syndrome - Discharge Information Referrals: Félix Marshall PA [Primary Care Provider] - Forms: ED Department Discharge - My Orders Last 24 Hours: My Active Orders 11/22/17 17:52 EKG 12 Lead [EKG Documentation Completion] [RC] STAT Head wo Cont [CT] Stat 11/22/17 17:54 Peripheral IV Care [RC] . DIRECTED Sodium Chloride 0.9% [Saline Flush] 10 ml FLUSH ASDIRECTED PRN Peripheral IV Insertion Adult [OM.PC] Stat 11/22/17 18:00 Sodium Chloride 0.9% [Normal Saline] 1,000 ml IV ASDIRECTED 11/22/17 18:06 Blood Glucose Check, Bedside [RC] ONETIME - Assessment/Plan Last 24 Hours: My Active Orders 11/22/17 17:52 EKG 12 Lead [EKG Documentation Completion] [RC] STAT Head wo Cont [CT] Stat 11/22/17 17:54 Peripheral IV Care [RC] . DIRECTED Sodium Chloride 0.9% [Saline Flush] 10 ml FLUSH ASDIRECTED PRN Peripheral IV Insertion Adult [OM.PC] Stat 11/22/17 18:00 Sodium Chloride 0.9% [Normal Saline] 1,000 ml IV ASDIRECTED 11/22/17 18:06 Blood Glucose Check, Bedside [RC] ONETIME
[2017-11-22] MEDS ORDERED: ClonazePAM 0.5 MG Tab PO ONE (18:43)
[2017-11-22] MEDS ORDERED: Acetaminophen 325 MG Tab PO ONE (18:45)
[2017-11-22] MEDS ORDERED: Aspirin 81 MG Tab.Chew PO ONE (18:58)
[2017-11-22 19:26] VITALS: BP 130/70
--- NOTE | 2017-11-25 07:15 | CT ---
Head CT Technique: Multiple axial sections through the brain were obtained. Intravenous contrast was not utilized. Comparison: Prior head CT exam of 07/20/17. Findings: Ventricles along with basal cisterns and sulci over the convexities are mildly prominent. Minimal diminished density noted within portions of the periventricular white matter compatible with small vessel ischemic demyelination change. No other abnormal parenchymal densities are seen. No evidence of intracranial hemorrhage. No midline shift or mass effect is seen. Bone window settings were reviewed which show no acute calvarial abnormality. Visualized sinuses are clear. Mild atherosclerotic calcification seen within the carotid siphon and within the left vertebral vessel. Impression: 1. Mild senescent change as noted above. 2. No acute intracranial abnormality is seen. No appreciable change is seen from prior head CT study. Diagnostic code #1 I agree with preliminary report from [facility], finalized on 11/22/17, 7:12 PM Central Time
== END 2017-11-22 19:00 ==
LOC: JD.ED 17:39
DX: R47.01 Aphasia (principal); F17.210 Nicotine dependence, cigarettes, uncomplicated; Z88.5 Allergy status to narcotic agent; Z91.040 Latex allergy status; Z88.8 Allergy status to other drugs, medicaments and biological substances; Z88.2 Allergy status to sulfonamides; Z79.899 Other long term (current) drug therapy
CPT/HCPCS: 70450; 82962; 93005; 96360; 99285; A9270; J7040; J7050

== ENCOUNTER 2018-04-21 06:04 | Day surgery (SDC) | payer MEDICARE ==
[2018-04-21] MEDS ORDERED: Propofol 200 MG/20 ML SDV ONE ×2 (06:48→07:52)
[2018-04-21] MEDS ORDERED: Midazolam 1 MG/ML 2 ML SDV ONE ×3 (06:49→07:28)
[2018-04-21] MEDS ORDERED: Lidocaine 1% 4 ML ONE (06:49)
[2018-04-21] MEDS ORDERED: Dexamethasone 4 MG/ML 5 ML MDV ONE (06:52)
[2018-04-21] MEDS ORDERED: Ondansetron 4 MG/2 ML SDV ONE (06:52)
[2018-04-21] MEDS ORDERED: Bupivacaine 0.75% 30 ML SDV ONE (06:52)
[2018-04-21] MEDS ORDERED: ceFAZolin 1 GM Vial ONE (06:52)
[2018-04-21] MEDS ORDERED: Sodium Chloride 0.9% 10 ML Syringe FLUSH PRN (07:00)
[2018-04-21] MEDS ORDERED: Lactated Ringers 1,000 ML IV SCH (07:00)
[2018-04-21] MEDS ORDERED: Lidocaine 1%/Sod Bicarbonate in NS 8.4% 1 ML Syringe IDERM PRN (07:00)
[2018-04-21] MEDS ORDERED: EPINEPHrine 1 MG/ML SDV ONE (07:18)
[2018-04-21] MEDS ORDERED: Ropivacaine 0.5% 5 MG/ML 30 ML SDV ONE (07:18)
[2018-04-21] MEDS ORDERED: Lactated Ringers 1,000 ML ONE ×2 (07:25→08:46)
--- NOTE | 2018-04-21 07:57 | PCM.PREANE ---
Preanesthetic Assessment - Anesthesia/Transfusion/Family Hx Anesthesia History: Prior Anesthesia Without Reaction Family History of Anesthesia Reaction: No Transfusion History: Prior Transfusion Without Reaction - Review of Systems General: No Symptoms Pulmonary: Other (Smoker 1ppd denies cough) Cardiovascular: No Symptoms Gastrointestinal: No Symptoms Neurological: Dizziness (Vertigo), Pre-Existing Deficit (Chronic Back pain from an injury years ago. Unchanged. ), Other (Fibromyalgia) Other: Reports: Thyroid Problems, Depression, Anxiety (PTSD, Panic Attacks) - Physical Assessment NPO Status Date: 04/20/18 NPO Status Time: 20:00 O2 Sat by Pulse Oximetry: 97 Respiratory Rate: 16 Vital Signs: Last Vital Signs Temp 36.7 C 04/21/18 06:15 Pulse 88 04/21/18 06:15 Resp 16 04/21/18 06:15 BP 148/83 H 04/21/18 06:15 Pulse Ox 97 04/21/18 06:15 Height: 1.63 m Weight: 97.976 kg ASA Class: 2 Mental Status: Alert & Oriented x3 Airway Class: Mallampati = 2 Dentition: Reports: Dentures Thyro-Mental Finger Breadths: 3 Mouth Opening Finger Breadths: 3 ROM/Head Extension: Full Lungs: Clear to Auscultation, Normal Respiratory Effort Cardiovascular: Regular Rate, Regular Rhythm - Lab Values: Laboratory Last Values POC Glucose 184 mg/dL (80-115) H 04/21/18 06:33 MRSA (PCR) Negative 04/09/18 14:12 - Imaging/EKG Impressions: NSR at 67bmp - Allergies Allergies/Adverse Reactions: Allergies Allergy/AdvReac Type Severity Reaction Status Date / Time codeine Allergy Airway Verified 04/18/18 13:32 Tightness fentanyl [From Duragesic] Allergy Airway Verified 04/18/18 13:32 Tightness latex Allergy Rash Verified 04/18/18 13:32 morphine Allergy Hives Verified 04/18/18 13:32 pregabalin [From Lyrica] Allergy Hives Verified 04/18/18 13:32 oxycodone [From OxyContin] AdvReac Seizure Verified 04/21/18 07:03 Penicillins AdvReac Muscle Verified 04/18/18 13:32 Aches - Anesthesia Plan Pre-Op Medication Ordered: Anxiolytic - Acknowledgements Anesthesia Type Planned: Spinal Pt an Appropriate Candidate for the Planned Anesthesia: Yes Alternatives and Risks of Anesthesia Discussed w Pt/Guardian: Yes Pt/Guardian Understands and Agrees with Anesthesia Plan: Yes Additional Comments: Alia has significant psychiatric past history for PTSD, anxiety, and panic attacks. Very tearful this morning recalling traumatic events from her past. Requesting no visitors while in the hospital. She does feel safe here and has support people in her life to help after surgery. Dr. Salamanca at her bedside. Alia does wish to proceed with surgery today. PreAnesthesia Questionnaire HEENT History: Reports: Allergic Rhinitis, Impaired Vision, Other (See Below) Other HEENT History: has glasses, dentures Cardiovascular History: Reports: High Cholesterol, Hypertension, Other (See Below) Other Cardiovascular History: carotid stenosis Respiratory History: Reports: Pneumonia, Recurrent, Other (See Below) Other Respiratory History: snoring Gastrointestinal History: Reports: Other (See Below) Other Gastrointestinal History: chronic nausea, stomach ulcer Genitourinary History: Reports: Renal Calculus Other Genitourinary History: bilateral kidney tumors, hematuria, frequency, kidney stones, public bone pain [employer] History: Reports: , Other (See Below) Other OB/BYN History: bacterial vaginosis Musculoskeletal History: Reports: Back Pain, Chronic, Neck Pain, Chronic, Osteoarthritis, Osteoporosis Other Musculoskeletal History: right knee pain, muscle spasms, right shoulder pain, dysarthria Neurological History: Reports: Migraines, TIA, Vertigo Psychiatric History: Reports: Anxiety, Depression, Panic Attack, PTSD, Other ( See Below) Other Psychiatric History: insomnia, daytime somnolence Endocrine/Metabolic History: Reports: Diabetes, Type II, Hypothyroidism, Obesity /BMI 30+ Hematologic History: Reports: Blood Transfusion(s) Immunologic History: Reports: None Oncologic (Cancer) History: Reports: None Dermatologic History: Reports: Cellulitis Other Dermatologic History: rash - Past Surgical History Head Surgeries/Procedures: Reports: None HEENT Surgical History: Reports: Adenoidectomy, Oral Surgery, Tonsillectomy Cardiovascular Surgical History: Reports: None Respiratory Surgical History: Reports: None GI Surgical History: Reports: Appendectomy Female Surgical History: Reports: Section, Hysterectomy, Tubal Ligation Male Surgical History: Reports: None Endocrine Surgical History: Reports: Thyroidectomy Neurological Surgical History: Reports: None Musculoskeletal Surgical History: Reports: Arthroscopic Knee Oncologic Surgical History: Reports: None Dermatological Surgical History: Reports: None - SUBSTANCE USE Smoking Status *Q: Current Every Day Smoker Recreational Drug Use History: No - HOME MEDS Home Medications: Home Meds Levothyroxine [Synthroid] 50 mcg PO DAILY 09/27/16 [History] Pantoprazole [ProTONIX] 40 mg PO DAILY 09/27/16 [History] tiZANidine HCl [Tizanidine HCl] 4 mg PO Q8H PRN 09/27/16 [History] traZODone HCl [Trazodone HCl] 100 mg PO BEDTIME 09/27/16 [History] ClonazePAM [KlonoPIN] 2 mg PO BEDTIME #30 tablet 10/30/16 [Rx] Calcium Carbonate [Calcium] 500 mg PO BID 06/03/17 [History] Cholecalciferol (Vitamin D3) [Vitamin D3] 5,000 unit PO DAILY 06/03/17 [History] Citalopram Hydrobromide [Celexa] 40 mg PO DAILY 06/03/17 [History] Cyanocobalamin (Vitamin B-12) [Vitamin B-12] 500 mcg PO DAILY 06/03/17 [History] Fish Oil/[place]-3 Fatty Acids [Fish Oil 1,000 MG] 1 gm PO DAILY 06/03/17 [History ] Folic Acid 1 mg PO DAILY 06/03/17 [History] Meclizine [Antivert] 25 mg PO BID PRN 06/03/17 [History] Methotrexate Sodium [Methotrexate] 10 mg PO WEEKLY 06/03/17 [History] Red Yeast Rice 600 mg PO BID 06/03/17 [History] Hydroxychloroquine [Plaquenil] 200 mg PO BID 10/17/17 [History] Ondansetron [Zofran] 4 mg PO Q8H PRN 12/31/17 [History] sitaGLIPtin Phos/Metformin HCl [Janumet 50-1,000 MG] 1 each PO BID 12/31/17 [ History] traMADol [Ultram] 50 mg PO Q8H PRN 12/31/17 [History] Aspirin [Adult Aspirin] 81 mg PO DAILY 04/18/18 [History] Cinnamon Bark [Cinnamon] 500 mg PO DAILY 04/18/18 [History] Ezetimibe 10 mg PO BEDTIME 04/18/18 [History] Gabapentin [Neurontin] 800 mg PO QID 04/18/18 [History] Nabumetone 750 mg PO ASDIRECTED 04/18/18 [History] Prazosin HCl [Prazosin] 1 mg PO TID 04/18/18 [History] Prazosin HCl [Prazosin] 2 - 4 mg PO BEDTIME PRN 04/18/18 [History] Triamterene/Hydrochlorothiazid [Dyazide 37.5-25] 1 cap PO DAILY 04/18/18 [ History] Vitamin B Complex 1 cap PO DAILY 04/18/18 [History] Vitamin E 400 unit PO DAILY 04/18/18 [History] hydrOXYzine HCl [hydrOXYzine] 25 mg PO TID PRN 04/18/18 [History] hydrOXYzine HCl [hydrOXYzine] 50 mg PO BEDTIME PRN 04/18/18 [History] - CURRENT (IN HOUSE) MEDS Current Meds: Current Medications Hydrocodone Bitart/Acetaminophen ([place] 325-5 Mg) 2 tab PO Q4H PRN PRN Reason: Pain Bisacodyl (Dulcolax) 10 mg PO DAILY PRN PRN Reason: Constipation Cyclobenzaprine HCl (Flexeril) 10 mg PO TID PRN PRN Reason: Muscle Spasm Diphenhydramine HCl (Benadryl) 25 mg IVPUSH Q4H PRN PRN Reason: Nausea Docusate Sodium (Colace) 100 mg PO BID PRN PRN Reason: Constipation Famotidine (Pepcid) 20 mg PO Q12H [facility] Lactated Ringer's (Ringers, Lactated) 1,000 mls @ 125 mls/hr IV ASDIRECTED [facility] Stop: 04/21/18 23:00 Last Admin: 04/21/18 06:20 Dose: 125 mls/hr Cefazolin Sodium/Dextrose 2 gm (/ Premix) 50 mls @ 100 mls/hr IV Q8H [facility] Stop: 04/22/18 07:29 Lidocaine/Sodium Bicarbonate (Buffered Lidocaine 1% In Ns 8.4%) 0.25 ml IDERM ONETIME PRN PRN Reason: Prior to IV Start Stop: 04/21/18 18:00 Last Admin: 04/21/18 06:20 Dose: 0.25 ml Magnesium Hydroxide (Milk Of Magnesia) 30 ml PO BID PRN PRN Reason: Constipation Naloxone HCl (Narcan) 0.1 mg IVPUSH Q5M PRN PRN Reason: Oversedation Ondansetron HCl (Zofran) 4 mg IVPUSH Q6H PRN PRN Reason: Nausea/Vomiting Rivaroxaban (Xarelto) 10 mg PO DAILY HECTOR Senna (Senna) 8.6 mg PO BID PRN PRN Reason: Constipation Sodium Chloride (Saline Flush) 10 ml FLUSH ASDIRECTED PRN PRN Reason: Keep Vein Open Stop: 04/21/18 18:00 Discontinued Medications Bupivacaine HCl (Marcaine 0.25%) Confirm Administered Dose 30 ml .ROUTE .STK- MED ONE Stop: 04/21/18 06:29 Bupivacaine HCl (Sensorcaine-Mpf 0.75%) Confirm Administered Dose 30 ml .ROUTE .STK-MED ONE Stop: 04/21/18 06:53 Cefazolin Sodium (Ancef) Confirm Administered Dose 2 gm .ROUTE .STK-MED ONE Stop: 04/21/18 06:29 Cefazolin Sodium (Ancef) Confirm Administered Dose 2 gm .ROUTE .STK-MED ONE Stop: 04/21/18 06:53 Epinephrine HCl 0.3 mg/Cefuroxime Sodium 750 mg/Ketorolac Tromethamine 30 mg/ Sodium Chloride 28.7 ml 0 mg .XX ONETIME ONE Stop: 04/21/18 07:13 Dexamethasone (Dexamethasone) Confirm Administered Dose 20 mg .ROUTE .STK-MED ONE Stop: 04/21/18 06:53 Epinephrine HCl (Adrenalin) Confirm Administered Dose 1 mg .ROUTE .STK-MED ONE Stop: 04/21/18 07:19 Lidocaine HCl (Xylocaine-Mpf 1%) Confirm Administered Dose 4 mls @ as directed .ROUTE .STK-MED ONE Stop: 04/21/18 06:50 Lidocaine HCl (Xylocaine-Mpf 1%) Confirm Administered Dose 5 mls @ as directed .ROUTE .STK-MED ONE Stop: 04/21/18 06:54 Lactated Ringer's (Ringers, Lactated) Confirm Administered Dose 1,000 mls @ as directed .ROUTE .STK-MED ONE Stop: 04/21/18 07:26 Iodine (Iodine 2% Mild Tincture) Confirm Administered Dose 30 ml .ROUTE .STK- MED ONE Stop: 04/21/18 06:29 Midazolam HCl (Versed 1 Mg/Ml) Confirm Administered Dose 2 mg .ROUTE .STK-MED ONE Stop: 04/21/18 06:50 Midazolam HCl (Versed 1 Mg/Ml) Confirm Administered Dose 2 mg .ROUTE .STK-MED ONE Stop: 04/21/18 06:50 Midazolam HCl (Versed 1 Mg/Ml) Confirm Administered Dose 2 mg .ROUTE .STK-MED ONE Stop: 04/21/18 07:29 Ondansetron HCl (Zofran) Confirm Administered Dose 4 mg .ROUTE .STK-MED ONE Stop: 04/21/18 06:53 Propofol (Diprivan 20 Ml) Confirm Administered Dose 600 mg .ROUTE .STK-MED ONE Stop: 04/21/18 06:49 Ropivacaine (Naropin 0.5%) Confirm Administered Dose 30 ml .ROUTE .STK-MED ONE Stop: 04/21/18 07:19 Tranexamic Acid (Cyklokapron) Confirm Administered Dose 1,000 mg .ROUTE .STK- MED ONE Stop: 04/21/18 06:29 Vancomycin HCl (Vancomycin) Confirm Administered Dose 1 gm .ROUTE .STK-MED ONE Stop: 04/21/18 06:29
[2018-04-21] MEDS ORDERED: diphenhydrAMINE 50 MG/ML SDV IVPUSH PRN ×2 (07:58→09:00)
[2018-04-21] MEDS ORDERED: Midazolam 1 MG/ML 2 ML SDV IVPUSH PRN (07:58)
[2018-04-21] MEDS ORDERED: Ondansetron 4 MG/2 ML SDV IVPUSH PRN ×2 (07:58→09:00)
[2018-04-21] MEDS: Iodine/Sodium Iodide 2% Tincture 30 ML Bottle ONE ×3 (08:02→08:09)
[2018-04-21] MEDS: Bupivacaine 0.25% 30 ML SDV ONE ×2 (08:02→08:25)
[2018-04-21] MEDS: ceFAZolin 1 GM Vial ONE ×3 (08:02→08:25)
[2018-04-21] MEDS: Vancomycin 1 GM SDV ONE ×2 (08:03→08:26)
[2018-04-21] MEDS: EPINEPHrine 0.3 MG, Cefuroxime 750 MG, Ketorolac 30 MG, Sodium Chloride 0.9% 28.7 ML ONE ×8 (08:03→08:25)
[2018-04-21] MEDS ORDERED: hydrOXYzine HCl 25 MG Tab PO PRN (08:18)
[2018-04-21] MEDS ORDERED: tiZANidine 4 MG Tab PO PRN (08:18)
[2018-04-21] MEDS ORDERED: Ketorolac 30 MG/ML SDV ONE (08:49)
[2018-04-21] MEDS ORDERED: Bisacodyl 5 MG Tab PO PRN (09:00)
[2018-04-21] MEDS ORDERED: Cholecalciferol (Vitamin D3) 5,000 UNIT Tab PO SCH (09:00)
[2018-04-21] MEDS ORDERED: Gabapentin 100 MG Cap PO SCH (09:00)
[2018-04-21] MEDS ORDERED: metFORMIN 500 MG Tab PO SCH (09:00)
[2018-04-21] MEDS ORDERED: Magnesium Hydroxide 400 MG/5 ML Susp 30 ML Cup PO PRN (09:00)
[2018-04-21] MEDS ORDERED: Citalopram 20 MG Tab PO SCH (09:00)
[2018-04-21] MEDS ORDERED: Cyclobenzaprine 10 MG Tab PO PRN (09:00)
[2018-04-21] MEDS ORDERED: Alogliptin 12.5 MG TABLET PO SCH (09:00)
[2018-04-21] MEDS ORDERED: Calcium Carbonate 600 MG Tab PO SCH (09:00)
[2018-04-21] MEDS ORDERED: Naloxone 0.4 MG/ML SDV IVPUSH PRN (09:00)
[2018-04-21] MEDS ORDERED: Hydrochlorothiazide/Triamterene 25-37.5 MG Cap PO SCH (09:00)
[2018-04-21] MEDS ORDERED: Gabapentin 600 MG Tab PO SCH (09:00)
[2018-04-21] MEDS ORDERED: Prazosin 1 MG Cap PO SCH (09:00)
[2018-04-21] MEDS ORDERED: Vitamin B Complex With Vitamin C Cap PO SCH (09:00)
[2018-04-21] MEDS ORDERED: Sennosides 8.6 MG Tab PO PRN (09:00)
[2018-04-21] MEDS ORDERED: Cyanocobalamin (Vitamin B12) 1,000 MCG Tab PO SCH (09:00)
[2018-04-21] MEDS ORDERED: Docusate Sodium 100 MG Cap PO PRN (09:00)
[2018-04-21] MEDS ORDERED: Folic Acid 1 MG Tab PO SCH (09:00)
--- NOTE | 2018-04-21 09:02 | PCM.POSTAN ---
POST ANESTHESIA ASSESSMENT - MENTAL STATUS Mental Status: Somnolent - VITAL SIGNS Pulse Rate: 89 SaO2: 98 Resp Rate: 15 Blood Pressure: 120/67 Temperature: 36.3 C - RESPIRATORY Respiratory Status: Respiratory Rate WNL, Airway Patent, O2 Saturation Stable, Supplemental Oxygen - CARDIOVASCULAR CV Status: Pulse Rate WNL, Blood Pressure Stable - GASTROINTESTINAL GI Status: No Symptoms - PAIN Pain Score: 0 - POST OP HYDRATION Hydration Status: Adequate & Stable
--- NOTE | 2018-04-21 09:04 | PCM.OPNOTE ---
- General Post-Op/Procedure Note Date of Surgery/Procedure: 04/21/18 Operative Procedure(s): right total knee arthroplasty Pre Op Diagnosis: right knee osteoarthrosis Post-Op Diagnosis: Same Anesthesia Technique: Local, MAC, Spinal Primary Surgeon: Navdeep Salamanca Anesthesia Provider: Adry Walker Tenoner Operator: Dawn Guillen EBL in mLs: 20 Complications: None Condition: Good Free Text/Narrative:: size 3 femur and tibia cemented 9mm PS 32x10
--- NOTE | 2018-04-21 09:22 | PCM.SN ---
- Free Text/Narrative Note: Right selective femoral nerve block at the adductor canal for post-procedure pain control Time Out: 908 Start: 908 End: 914 Chart reviewed. Consent signed. Questions answered. Appropriate monitors applied. Time out performed. Right mid-shaft femur evaluated with ultrasound. Scanning medially femur, I was able to identify the femoral artery in the adductor canal. The saphenous nerve was lateral to the artery. The skin was prepped lateral to the ultrasound probe with chlorahexadine. The 21ga [id number] insulated block needle was inserted under direct ultrasound guidance into the adductor canal. 20mL of 0.5% ropivacaine with 1:200,000 epinephrine was injected cirmcumferentially about the nerve with intermittent negative aspiration every 5mL. Patient tolerated the procedure well. See pictures on progress note and vital signs on nurses notes. Block completed postoperatively. Israel Walker [employer]
--- NOTE | 2018-04-21 10:18 | CR ---
Right knee: Two portable views of the right knee were obtained. Comparison: Previous right knee radiographic study of 01/06/18. Knee prosthesis is noted. Components are aligned. Underlying bony structures are intact. Soft tissue air noted from the surgical procedure. Minimal vascular calcification is noted. Impression: 1. Satisfactory postop radiographic appearance of recently placed right knee prosthesis. Diagnostic code #2
[2018-04-21] MEDS: Acetaminophen/HYDROcodone 325-5 MG Tab PO PRN ×2 (13:52→19:44)
--- NOTE | 2018-04-21 15:16 | PCM.SN ---
- Free Text/Narrative Note: Alia is a 62 yo female patient of Dr. Salamanca who is post-operative day 0 of R TKA. Hospital medicine was consulted for post-operative medical care. At this time she is stable. Pain is controlled, but she states that her chronic back pain is acting up and her knee pain is "10/10 but better if I'm walking". Will have her walk and continue pain medication PRN. She denies any chest pain, shortness of breath, palpitations, nausea, vomiting, diarrhea, or other GI/ complaints. She is having some anxiety here, she states it's d/t her PTSD- will continue her at home regimen of medications. She carries a history of: Chronic Back pain, Fibromyalgia, Thyroid, Depression, Anxiety, Diabetes. She is a full code. Her PCP is Félix Marshall PA-C. Current every day smoker (1ppd). Nicotine patch and cessation counseling given.
[2018-04-21] MEDS: Nicotine 21 MG/24 Hr Patch TRDERM SCH (16:05)
[2018-04-21] MEDS: ceFAZolin 2 GM in Premix Bag 1 BAG IV SCH ×2 (16:05→22:17)
[2018-04-21] MEDS: metFORMIN 500 MG Tab PO SCH (17:10)
[2018-04-21] MEDS: Alogliptin 12.5 MG TABLET PO SCH (17:10)
[2018-04-21] MEDS ORDERED: Prazosin 1 MG Cap PO PRN ×2 (19:56→21:00)
[2018-04-21] MEDS: Famotidine 20 MG Tab PO SCH (20:31)
[2018-04-21] MEDS: Gabapentin 600 MG Tab PO SCH (20:31)
[2018-04-21] MEDS: Gabapentin 100 MG Cap PO SCH (20:31)
[2018-04-21] MEDS: Prazosin 1 MG Cap PO SCH (20:32)
[2018-04-21] MEDS ORDERED: Ezetimibe 10 MG Tab PO SCH (21:00)
[2018-04-21] MEDS ORDERED: hydrOXYzine HCl 50 MG Tab PO PRN (21:00)
[2018-04-21] MEDS ORDERED: ClonazePAM 1 MG Tab PO SCH (21:00)
[2018-04-21] MEDS ORDERED: traZODone 50 MG Tab PO SCH (21:00)
[2018-04-22] MEDS: Acetaminophen/HYDROcodone 325-5 MG Tab PO PRN ×3 (00:17→09:55)
[2018-04-22] MEDS ORDERED: Levothyroxine 50 MCG Tab PO SCH (06:00)
[2018-04-22] MEDS: Alogliptin 12.5 MG TABLET PO SCH (06:16)
[2018-04-22] MEDS: ceFAZolin 2 GM in Premix Bag 1 BAG IV SCH (06:16)
[2018-04-22] MEDS: metFORMIN 500 MG Tab PO SCH (06:16)
[2018-04-22] MEDS: Gabapentin 100 MG Cap PO SCH (08:19)
[2018-04-22] MEDS: Famotidine 20 MG Tab PO SCH (08:19)
[2018-04-22] MEDS: Prazosin 1 MG Cap PO SCH (08:20)
[2018-04-22] MEDS: Nicotine 21 MG/24 Hr Patch TRDERM SCH (08:21)
[2018-04-22] MEDS: Gabapentin 600 MG Tab PO SCH (08:21)
--- NOTE | 2018-04-22 08:34 | PCM48HPAN ---
Post Anesthesia Note - EVALUATION WITHIN 48HRS OF ANESTHETIC Vital Signs in Normal Range: Yes Patient Participated in Evaluation: Yes Respiratory Function Stable: Yes Airway Patent: Yes Cardiovascular Function Stable: Yes Hydration Status Stable: Yes Pain Control Satisfactory: Yes Nausea and Vomiting Control Satisfactory: Yes Mental Status Recovered: Yes - COMMENTS/OBSERVATIONS Free Text/Narrative:: Pt doing well walking in the hallway. Pain is satisfactory. Doing well, no complaints
[2018-04-22] MEDS ORDERED: Folic Acid 1 MG Tab PO SCH (09:00)
[2018-04-22] MEDS ORDERED: Cyanocobalamin (Vitamin B12) 1,000 MCG Tab PO SCH (09:00)
[2018-04-22] MEDS ORDERED: Citalopram 20 MG Tab PO SCH (09:00)
[2018-04-22] MEDS ORDERED: Calcium Carbonate 600 MG Tab PO SCH (09:00)
[2018-04-22] MEDS ORDERED: Vitamin B Complex With Vitamin C Cap PO SCH (09:00)
[2018-04-22] MEDS ORDERED: Hydrochlorothiazide/Triamterene 25-37.5 MG Cap PO SCH (09:00)
[2018-04-22] MEDS ORDERED: Cholecalciferol (Vitamin D3) 5,000 UNIT Tab PO SCH (09:00)
[2018-04-22] MEDS ORDERED: Rivaroxaban 10 MG Tab PO SCH (09:00)
--- NOTE | 2018-04-22 09:48 | PCM.SN ---
- Free Text/Narrative Note: Patient seen and examined at bedside. She feels exhausted and tired after taking a shower and had her PT/OT session. She is currently in mild-moderate pain after some bedside activities but otherwise comfortable and sleepy. Her blood pressures have been elevated for the most part. She reports no issues or complaints. We will try to get her pressure better prior to discharge. PRN IV hydralazine as well as one time low dose Norvasc for medical management. If stable and no other significant medical issues, she should be okay to go home sometime today.
[2018-04-22] MEDS ORDERED: hydrALAZINE 20 MG/ML SDV IVPUSH PRN (09:49)
[2018-04-22] MEDS ORDERED: amLODIPine 5 MG Tab PO ONE (09:51)
[2018-04-22 16:16] VITALS: BP 129/71
--- NOTE | 2018-04-24 10:50 | OR ---
DATE OF OPERATION: 04/21/2018 SURGEON: Navdeep Salamanca MD OPERATION PERFORMED: Right total knee arthroplasty. PREOPERATIVE DIAGNOSIS: Right knee osteoarthrosis. POSTOPERATIVE DIAGNOSIS: Right knee osteoarthrosis. ANESTHESIA: Local MAC with spinal. ANESTHESIA PROVIDER: Sydnee Pfeiffer. SAXOPHONE PLAYER: Dawn Guillen LPN. ESTIMATED BLOOD LOSS: 20 mL. COMPLICATIONS: None. CONDITION: Stable. IMPLANTS: 1. Will size 3 cemented PS femur. 2. Will size 3 cemented tibial base plate. 3. Colstrip size 3, 9 mm PS X3 polyethylene. 4. Colstrip size 32 x 10 mm cemented patella. DESCRIPTION OF PROCEDURE: The patient was identified in the preop holding area. Proper site was marked and identified by the surgeon. The patient was taken back to the operating theater. After adequate anesthesia, the patient's right lower extremity had a nonsterile tourniquet applied and it was sterilely prepped and draped in the usual sterile fashion. OR time-out was performed. The patient received 2 g IV Ancef. At this time, the right lower extremity was exsanguinated. Tourniquet was insufflated to 300 mmHg. Standard medial parapatellar incision was made. Medial parapatellar arthrotomy was created. Deep fibers of the MCL were raised and anterior fat pad was resected. At this time, attention was turned to the patella. Patella measured 21, and it was resected to a 13 for a 32 x 10 mm patella. Drill holes were then drilled and found to be in adequate position. The drill was then drilled in the distal femur and the intramedullary distal femoral cutting guide was then placed. 8 mm was resected off the distal femur and was found to be an adequate resection. Sizing guide was placed. It was found to be a size 3 cemented PS femur that was shown on the implant record at the beginning of this dictation. The drill holes were drilled for the epicondylar axis using Whitesides line and epicondyles as reference. At this time, the 4-in-1 cutting block was placed. An anterior posterior and anterior and posterior chamfer cuts were then completed. Box cut was then completed and found to be adequate. Attention was turned to the tibia. The posterior medial lateral retractors were placed. The extramedullary tibial guide was placed. It was placed in the old footprint of the ACL. It was aligned with the center of the ankle and 0 degrees of slope, 9 mm was then resected off the unaffected side. There was found to be an acceptable reduction. At this time, posterior osteophytes were removed along with medial and lateral meniscus. A trial implant was placed with a correct sized tibia that was mentioned at the beginning of the dictation. A Colstrip size 3, 9 mm PS X3 polyethylene insert was then placed. The patient's knee was brought through range of motion. The patella was tracking centrally and was stable to varus and valgus stress. Alignment was found to be roughly at 0 degrees. The tibia was stamped and drilled in proper rotation. Cement was mixed on the back table. The universal tibial base plate was cemented in place. Next, the Colstrip size 3 cemented PS femur impacted into place and the Will size 3, 9 mm PS X3 polyethylene insert was placed. The patient's knee was brought into full extension. Excess cement was removed. The patella was then cemented in place at this time. One liter dilute Betadine solution was irrigated through the knee along with 3 L of pulse lavage irrigation with Ancef. Periarticular injection was then completed. The patient's knee was brought through a range of motion. Once the cement had time to set up and it was found to be stable to varus valgus stress, the patella was tracking centrally with full range of motion. At this time, a #2 barbed suture was used for closure of the medial parapatellar arthrotomy. Topical tranexamic acid was placed. 2-0 Vicryl was used subcutaneously, Prineo was used for the skin. The patient tolerated the procedure well and was sent to the PACU in stable condition. HARRISON /[id number] MAURI
--- NOTE | 2018-04-24 14:45 | PCM.SURGPN ---
- General Info Date of Service: 04/22/18 Functional Status: Reports: Pain Controlled, Tolerating Diet, Ambulating, Urinating, Incentive Spirometry - Patient Data Vitals - Most Recent: Last Vital Signs Temp 98.2 F 04/22/18 08:00 Pulse 94 04/22/18 08:00 Resp 16 04/22/18 08:00 BP 129/71 04/22/18 16:15 Pulse Ox 91 L 04/22/18 08:00 Weight - Most Recent: 216 lb Med Orders - Current: Current Medications Discontinued Medications Hydrocodone Bitart/Acetaminophen ([place] 325-5 Mg) 2 tab PO Q4H PRN PRN Reason: Pain Last Admin: 04/22/18 09:55 Dose: 2 tab Alogliptin Benzoate (Alogliptin) 12.5 mg PO BIDMEALS [facility] Last Admin: 04/21/18 11:35 Dose: Not Given Alogliptin Benzoate (Alogliptin) 12.5 mg PO BIDMEALS [facility] Last Admin: 04/22/18 06:16 Dose: 12.5 mg Amlodipine Besylate (Norvasc) 2.5 mg PO ONETIME ONE Stop: 04/22/18 09:52 Last Admin: 04/22/18 16:15 Dose: Not Given Bisacodyl (Dulcolax) 10 mg PO DAILY PRN PRN Reason: Constipation Bupivacaine HCl (Marcaine 0.25%) Confirm Administered Dose 30 ml .ROUTE .STK- MED ONE Stop: 04/21/18 06:29 Last Admin: 04/21/18 08:25 Dose: 30 ml Bupivacaine HCl (Sensorcaine-Mpf 0.75%) Confirm Administered Dose 30 ml .ROUTE .STK-MED ONE Stop: 04/21/18 06:53 Calcium Carbonate/Glycine (Calcium Carbonate) 600 mg PO BID [facility] Last Admin: 04/21/18 11:29 Dose: Not Given Calcium Carbonate/Glycine (Calcium Carbonate) 600 mg PO BID [facility] Last Admin: 04/22/18 08:19 Dose: 600 mg Cefazolin Sodium (Ancef) Confirm Administered Dose 2 gm .ROUTE .STK-MED ONE Stop: 04/21/18 06:29 Last Admin: 04/21/18 08:25 Dose: 2 gm Cefazolin Sodium (Ancef) Confirm Administered Dose 2 gm .ROUTE .STK-MED ONE Stop: 04/21/18 06:53 Cholecalciferol (Vitamin D3) 5,000 unit PO DAILY [facility] Last Admin: 04/21/18 11:30 Dose: Not Given Cholecalciferol (Vitamin D3) 5,000 unit PO DAILY [facility] Last Admin: 04/22/18 08:21 Dose: 5,000 unit Citalopram Hydrobromide (Celexa) 40 mg PO DAILY [facility] Last Admin: 04/21/18 11:46 Dose: Not Given Citalopram Hydrobromide (Celexa) 40 mg PO DAILY [facility] Last Admin: 04/22/18 08:20 Dose: 40 mg Clonazepam (Klonopin) 2 mg PO BEDTIME [facility] Last Admin: 04/21/18 20:31 Dose: 2 mg Epinephrine HCl 0.3 mg/Cefuroxime Sodium 750 mg/Ketorolac Tromethamine 30 mg/ Sodium Chloride 28.7 ml 0 mg .XX ONETIME ONE Stop: 04/21/18 07:13 Last Admin: 04/21/18 08:25 Dose: 780.3 mg Cyanocobalamin (Vitamin B12) 1,000 mcg PO DAILY [facility] Last Admin: 04/21/18 11:30 Dose: Not Given Cyanocobalamin (Vitamin B12) 1,000 mcg PO DAILY [facility] Last Admin: 04/22/18 08:20 Dose: 1,000 mcg Cyclobenzaprine HCl (Flexeril) 10 mg PO TID PRN PRN Reason: Muscle Spasm Dexamethasone (Dexamethasone) Confirm Administered Dose 20 mg .ROUTE .STK-MED ONE Stop: 04/21/18 06:53 Diphenhydramine HCl (Benadryl) 25 mg IVPUSH Q4H PRN PRN Reason: Nausea Diphenhydramine HCl (Benadryl) 25 mg IVPUSH Q6H PRN PRN Reason: Pruritis Stop: 04/21/18 10:30 Docusate Sodium (Colace) 100 mg PO BID PRN PRN Reason: Constipation Ezetimibe (Zetia) 10 mg PO BEDTIME [facility] Last Admin: 04/21/18 20:32 Dose: 10 mg Epinephrine HCl (Adrenalin) Confirm Administered Dose 1 mg .ROUTE .STK-MED ONE Stop: 04/21/18 07:19 Famotidine (Pepcid) 20 mg PO Q12H [facility] Last Admin: 04/22/18 08:19 Dose: 20 mg Folic Acid (Folic Acid) 1 mg PO DAILY [facility] Last Admin: 04/21/18 11:30 Dose: Not Given Folic Acid (Folic Acid) 1 mg PO DAILY [facility] Last Admin: 04/22/18 08:20 Dose: 1 mg Gabapentin (Neurontin) 600 mg PO QID [facility] Last Admin: 04/21/18 11:28 Dose: Not Given Gabapentin (Neurontin) 200 mg PO QID [facility] Last Admin: 04/21/18 11:28 Dose: Not Given Gabapentin (Neurontin) 600 mg PO QID [facility] Last Admin: 04/22/18 08:21 Dose: 600 mg Gabapentin (Neurontin) 200 mg PO QID [facility] Last Admin: 04/22/18 08:19 Dose: 200 mg Hydralazine HCl (Apresoline) 10 mg IVPUSH Q4H PRN PRN Reason: Hypertension Hydroxyzine HCl (Atarax) 25 mg PO TID PRN PRN Reason: asdirected Hydroxyzine HCl (Atarax) 50 mg PO BEDTIME PRN PRN Reason: asdirected Lactated Ringer's (Ringers, Lactated) 1,000 mls @ 125 mls/hr IV ASDIRECTED [facility] Stop: 04/21/18 23:00 Last Admin: 04/21/18 06:20 Dose: 125 mls/hr Lidocaine HCl (Xylocaine-Mpf 1%) Confirm Administered Dose 4 mls @ as directed .ROUTE .STK-MED ONE Stop: 04/21/18 06:50 Lidocaine HCl (Xylocaine-Mpf 1%) Confirm Administered Dose 5 mls @ as directed .ROUTE .STK-MED ONE Stop: 04/21/18 06:54 Cefazolin Sodium/Dextrose 2 gm (/ Premix) 50 mls @ 100 mls/hr IV Q8H [facility] Stop: 04/22/18 07:29 Last Admin: 04/22/18 06:16 Dose: 100 mls/hr Lactated Ringer's (Ringers, Lactated) Confirm Administered Dose 1,000 mls @ as directed .ROUTE .STK-MED ONE Stop: 04/21/18 07:26 Lactated Ringer's (Ringers, Lactated) Confirm Administered Dose 1,000 mls @ as directed .ROUTE .STK-MED ONE Stop: 04/21/18 08:47 Iodine (Iodine 2% Mild Tincture) Confirm Administered Dose 30 ml .ROUTE .[facility]- MED ONE Stop: 04/21/18 06:29 Last Admin: 04/21/18 08:09 Dose: 18 ml Ketorolac Tromethamine (Toradol) Confirm Administered Dose 30 mg .ROUTE .[facility]- MED ONE Stop: 04/21/18 08:50 Levothyroxine Sodium (Synthroid) 50 mcg PO ACBREAKFAST [facility] Last Admin: 04/22/18 05:41 Dose: 50 mcg Lidocaine/Sodium Bicarbonate (Buffered Lidocaine 1% In Ns 8.4%) 0.25 ml IDERM ONETIME PRN PRN Reason: Prior to IV Start Stop: 04/21/18 18:00 Last Admin: 04/21/18 06:20 Dose: 0.25 ml Magnesium Hydroxide (Milk Of Magnesia) 30 ml PO BID PRN PRN Reason: Constipation Meclizine HCl (Antivert) 25 mg PO BID PRN PRN Reason: vertigo Metformin HCl (Glucophage) 1,000 mg PO BIDMEALS [facility] Last Admin: 04/21/18 11:34 Dose: Not Given Metformin HCl (Glucophage) 1,000 mg PO BIDMEALS [facility] Last Admin: 04/22/18 06:16 Dose: 1,000 mg Midazolam HCl (Versed 1 Mg/Ml) Confirm Administered Dose 2 mg .ROUTE .[facility]-MED ONE Stop: 04/21/18 06:50 Midazolam HCl (Versed 1 Mg/Ml) Confirm Administered Dose 2 mg .ROUTE .[facility]-MED ONE Stop: 04/21/18 06:50 Midazolam HCl (Versed 1 Mg/Ml) Confirm Administered Dose 2 mg .ROUTE .[facility]-MED ONE Stop: 04/21/18 07:29 Midazolam HCl (Versed 1 Mg/Ml) 2 mg IVPUSH ONETIME PRN PRN Reason: Sedation Stop: 04/21/18 10:30 Miscellaneous Information (Remove Patch) 1 ea TRDERM DAILY [facility] Last Admin: 04/22/18 08:22 Dose: Not Given Naloxone HCl (Narcan) 0.1 mg IVPUSH Q5M PRN PRN Reason: Oversedation Nicotine (Habitrol) 21 mg TRDERM DAILY [facility] Last Admin: 04/22/18 08:21 Dose: Not Given Ondansetron HCl (Zofran) Confirm Administered Dose 4 mg .ROUTE .STK-MED ONE Stop: 04/21/18 06:53 Ondansetron HCl (Zofran) 4 mg IVPUSH Q6H PRN PRN Reason: Nausea/Vomiting Ondansetron HCl (Zofran) 4 mg IVPUSH ONETIME PRN PRN Reason: Nausea/Vomiting Stop: 04/21/18 10:30 Prazosin HCl (Minpress) 1 mg PO TID [facility] Last Admin: 04/21/18 11:28 Dose: Not Given Prazosin HCl (Minpress) 2 mg PO BEDTIME PRN PRN Reason: DIRECTED Prazosin HCl (Minpress) 1 mg PO TID [facility] Last Admin: 04/22/18 08:20 Dose: 1 mg Prazosin HCl (Minpress) 2 - 4 mg PO BEDTIME PRN PRN Reason: PTSD Last Admin: 04/21/18 22:14 Dose: 2 mg Propofol (Diprivan 20 Ml) Confirm Administered Dose 600 mg .ROUTE .STK-MED ONE Stop: 04/21/18 06:49 Propofol (Diprivan 20 Ml) Confirm Administered Dose 600 mg .ROUTE .STK-MED ONE Stop: 04/21/18 07:53 Rivaroxaban (Xarelto) 10 mg PO DAILY [facility] Last Admin: 04/22/18 08:20 Dose: 10 mg Ropivacaine (Naropin 0.5%) Confirm Administered Dose 30 ml .ROUTE .STK-MED ONE Stop: 04/21/18 07:19 Senna (Senna) 8.6 mg PO BID PRN PRN Reason: Constipation Sodium Chloride (Saline Flush) 10 ml FLUSH ASDIRECTED PRN PRN Reason: Keep Vein Open Stop: 04/21/18 18:00 Tizanidine HCl (Zanaflex) 4 mg PO Q8H PRN PRN Reason: muscle spasms Tranexamic Acid (Cyklokapron) Confirm Administered Dose 1,000 mg .ROUTE .STK- MED ONE Stop: 04/21/18 06:29 Last Admin: 04/21/18 08:34 Dose: 1,000 mg Trazodone HCl (Trazodone) 100 mg PO BEDTIME [facility] Last Admin: 04/21/18 20:31 Dose: 100 mg Triamterene/HCTZ (Dyazide 25-37.5 Mg) 1 each PO DAILY [facility] Last Admin: 04/21/18 11:30 Dose: Not Given Triamterene/HCTZ (Dyazide 25-37.5 Mg) 1 each PO DAILY [facility] Last Admin: 04/22/18 08:21 Dose: 1 each Vancomycin HCl (Vancomycin) Confirm Administered Dose 1 gm .ROUTE .STK-MED ONE Stop: 04/21/18 06:29 Last Admin: 04/21/18 08:26 Dose: 1 gm Vitamin B Complex/Vitamin C (Super B With Vitamin C) 1 cap PO DAILY [facility] Last Admin: 04/21/18 11:30 Dose: Not Given Vitamin B Complex/Vitamin C (Super B With Vitamin C) 1 cap PO DAILY [facility] Last Admin: 04/22/18 08:21 Dose: 1 cap - Exam Wound/Incisions: Dressing Dry and Intact General: Alert, Cooperative, No Acute Distress Lungs: Normal Respiratory Effort Extremities: Other (NVS intact for RLE. Wood's negative.) - Problem List Review Problem List Initiated/Reviewed/Updated: Yes - Assessment Assessment (Free Text/Narrative):: POD#1 - right TKA - Plan Plan (Free Text/Narrative):: 1. Hgb 11.8. 2. Discharge to home today. 3. Outpatient therapy. 4. Xarelto PO daily. The pt was evaluated by Dr. Salamanca today.
== END 2018-04-22 11:53 | disposition home or self-care (01) ==
LOC: JD.SDS 06:04 → JD.MS 10:01 → JD.SDS 04-22 11:53
PROVIDERS: ATTEND Orthopaedic Surgery
DX: M17.0 Bilateral primary osteoarthritis of knee (principal); I10 Essential (primary) hypertension; I65.29 Occlusion and stenosis of unspecified carotid artery; E11.9 Type 2 diabetes mellitus without complications; E78.00 Pure hypercholesterolemia, unspecified; E03.9 Hypothyroidism, unspecified; E55.9 Vitamin D deficiency, unspecified; F41.8 Other specified anxiety disorders; F17.290 Nicotine dependence, other tobacco product, uncomplicated; F41.0 Panic disorder [episodic paroxysmal anxiety]; J30.9 Allergic rhinitis, unspecified; H81.10 Benign paroxysmal vertigo, unspecified ear; G89.29 Other chronic pain; M54.9 Dorsalgia, unspecified; M79.7 Fibromyalgia; Z88.5 Allergy status to narcotic agent; Z88.0 Allergy status to penicillin; Z88.2 Allergy status to sulfonamides; Z88.8 Allergy status to other drugs, medicaments and biological substances; Z79.82 Long term (current) use of aspirin; Z79.84 Long term (current) use of oral hypoglycemic drugs; Z79.899 Other long term (current) drug therapy
CPT/HCPCS: 27447; 36415; 73560; 80053; 82962; 85025; 87641; 97110; 97116; 97161; 97165; 97535; A9270; C1713; C1776; J0171; J0690; J0697; J1885; J2001; J2250; J2405; J2704; J2795; J3370; J3490; J7120; 01402; 64450; J1100

== ENCOUNTER 2018-06-30 07:45 | Day surgery (SDC) | payer MEDICARE ==
[~2018-06-30 07:45] MED LIST changes: +Bupivacaine 0.75% 30 ML SDV ONE; +Ketamine 500 mg/10 ML MDV ONE; +Lactated Ringers 0 ML ONE; +Lidocaine 1% 0 ML ONE; +Midazolam 1 MG/ML 2 ML SDV ONE; +Propofol 200 MG/20 ML SDV ONE; +ceFAZolin 1 GM Vial ONE; +fentaNYL 100 MCG/2 ML SDV ONE
[2018-06-30] MEDS ORDERED: ePHEDrine/Normal Saline 25 MG/5 ML Syringe ONE (07:49)
[2018-06-30] MEDS ORDERED: fentaNYL 250 MCG/5 ML SDV ONE (07:58)
--- NOTE | 2018-06-30 08:06 | PCM.PREANE ---
<Yamel,Lynn Dinorah - Last Filed: 06/30/18 08:03> Preanesthetic Assessment - Anesthesia/Transfusion/Family Hx Anesthesia History: Prior Anesthesia Without Reaction Family History of Anesthesia Reaction: No Transfusion History: Prior Transfusion Without Reaction - Review of Systems General: Other (smoker, fibromyalgia, ) Cardiovascular: Other (HTN, EKG sr at 67, carotid stenosis, ) Neurological: Other (chronic back pain, vertigo) Other: Reports: Diabetes (type 2), Thyroid Problems (hypothyroid controlled on meds), Depression, Anxiety - Physical Assessment Vital Signs: Last Vital Signs Temp 37.1 C 06/30/18 08:00 Pulse 84 06/30/18 08:00 Resp 16 06/30/18 08:00 BP 166/89 H 06/30/18 08:00 Pulse Ox 98 06/30/18 08:00 - Lab Values: Laboratory Last Values POC Glucose 158 mg/dL (80-115) H 06/30/18 08:16 MRSA (PCR) Negative 06/18/18 13:02 - Allergies Allergies/Adverse Reactions: Allergies Allergy/AdvReac Type Severity Reaction Status Date / Time codeine Allergy Airway Verified 06/27/18 13:40 Tightness fentanyl [From Duragesic] Allergy Airway Verified 06/27/18 13:40 Tightness latex Allergy Rash Verified 06/27/18 13:40 morphine Allergy Hives Verified 06/27/18 13:40 pregabalin [From Lyrica] Allergy Hives Verified 06/27/18 13:40 bupropion [From Wellbutrin] AdvReac Tremors Verified 06/30/18 07:24 oxycodone [From OxyContin] AdvReac Seizure Verified 06/27/18 13:40 Penicillins AdvReac Muscle Verified 06/27/18 13:40 Aches - Blood Blood Available: No Product(s) Available: None - Anesthesia Plan Pre-Op Medication Ordered: None - Acknowledgements Anesthesia Type Planned: Spinal Pt an Appropriate Candidate for the Planned Anesthesia: Yes Alternatives and Risks of Anesthesia Discussed w Pt/Guardian: Yes Pt/Guardian Understands and Agrees with Anesthesia Plan: Yes PreAnesthesia Questionnaire HEENT History: Reports: Allergic Rhinitis, Impaired Vision, Other (See Below) Other HEENT History: has glasses, dentures Cardiovascular History: Reports: High Cholesterol, Hypertension, Other (See Below) Other Cardiovascular History: carotid stenosis Respiratory History: Reports: Pneumonia, Recurrent, Other (See Below) Other Respiratory History: snoring Gastrointestinal History: Reports: Other (See Below) Other Gastrointestinal History: chronic nausea, stomach ulcer Genitourinary History: Reports: Renal Calculus Other Genitourinary History: bilateral kidney tumors, hematuria, frequency, kidney stones, public bone pain 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: , Other (See Below) Other OB/BYN History: bacterial vaginosis Musculoskeletal History: Reports: Back Pain, Chronic, Neck Pain, Chronic, Osteoarthritis, Osteoporosis Other Musculoskeletal History: right knee pain, muscle spasms, right shoulder pain, dysarthria Neurological History: Reports: Migraines, TIA, Vertigo Psychiatric History: Reports: Anxiety, Depression, Panic Attack, PTSD, Other ( See Below) Other Psychiatric History: insomnia, daytime somnolence Endocrine/Metabolic History: Reports: Diabetes, Type II, Hypothyroidism, Obesity /BMI 30+ Hematologic History: Reports: Blood Transfusion(s) Immunologic History: Reports: None Oncologic (Cancer) History: Reports: None Dermatologic History: Reports: Cellulitis Other Dermatologic History: rash - Past Surgical History Head Surgeries/Procedures: Reports: None HEENT Surgical History: Reports: Adenoidectomy, Oral Surgery, Tonsillectomy Cardiovascular Surgical History: Reports: None Respiratory Surgical History: Reports: None GI Surgical History: Reports: Appendectomy Female Surgical History: Reports: Section, Hysterectomy, Tubal Ligation Male Surgical History: Reports: None Endocrine Surgical History: Reports: Thyroidectomy Neurological Surgical History: Reports: None Musculoskeletal Surgical History: Reports: Arthroscopic Knee Oncologic Surgical History: Reports: None Dermatological Surgical History: Reports: None - SUBSTANCE USE Smoking Status *Q: Current Every Day Smoker Recreational Drug Use History: No - HOME MEDS Home Medications: Home Meds Levothyroxine [Synthroid] 50 mcg PO DAILY 09/27/16 [History] Pantoprazole [ProTONIX] 40 mg PO DAILY 09/27/16 [History] tiZANidine HCl [Tizanidine HCl] 4 mg PO Q8H PRN 09/27/16 [History] ClonazePAM [KlonoPIN] 2 mg PO BEDTIME #30 tablet 10/30/16 [Rx] Calcium Carbonate [Calcium] 500 mg PO BID 06/03/17 [History] Cholecalciferol (Vitamin D3) [Vitamin D3] 5,000 unit PO DAILY 06/03/17 [History] Citalopram Hydrobromide [Celexa] 40 mg PO BEDTIME 06/03/17 [History] Cyanocobalamin (Vitamin B-12) [Vitamin B-12] 500 mcg PO DAILY 06/03/17 [History] Folic Acid 1 mg PO DAILY 06/03/17 [History] Meclizine [Antivert] 25 mg PO BID PRN 06/03/17 [History] Methotrexate Sodium [Methotrexate] 10 mg PO TU 06/03/17 [History] Red Yeast Rice 600 mg PO BID 06/03/17 [History] Ondansetron [Zofran] 4 mg PO Q8H PRN 12/31/17 [History] sitaGLIPtin Phos/Metformin HCl [Janumet 50-1,000 MG] 1 each PO BID 12/31/17 [ History] Aspirin [Adult Aspirin] 192 mg PO DAILY 04/18/18 [History] Cinnamon Bark [Cinnamon] 500 mg PO DAILY 04/18/18 [History] Ezetimibe 10 mg PO BEDTIME 04/18/18 [History] Gabapentin [Neurontin] 800 mg PO QID 04/18/18 [History] Nabumetone 750 mg PO BID 04/18/18 [History] Prazosin HCl [Prazosin] 1 mg PO TID 04/18/18 [History] Prazosin HCl [Prazosin] 4 mg PO BEDTIME PRN 04/18/18 [History] Triamterene/Hydrochlorothiazid [Dyazide 37.5-25] 1 cap PO DAILY 04/18/18 [ History] Vitamin B Complex 1 cap PO DAILY 04/18/18 [History] Vitamin E 400 unit PO DAILY 04/18/18 [History] Oxybutynin Chloride [Oxybutynin Chloride ER] 5 mg PO DAILY 04/21/18 [History] Multivitamin with Minerals [Hair, Skin and Nails] 1 tab PO DAILY 06/27/18 [ History] - CURRENT (IN HOUSE) MEDS Current Meds: Current Medications Bisacodyl (Dulcolax) 5 mg PO DAILY PRN PRN Reason: Constipation Docusate Sodium (Colace) 100 mg PO BID HECTOR Hydromorphone HCl (Dilaudid) 0.2 mg IVPUSH Q2H PRN PRN Reason: Pain (moderate 4-6) Lactated Ringer's (Ringers, Lactated) 1,000 mls @ 125 mls/hr IV ASDIRECTED [facility] Last Admin: 06/30/18 08:16 Dose: 125 mls/hr Cefazolin Sodium/Dextrose 2 gm (/ Premix) 50 mls @ 100 mls/hr IV Q8H [facility] Stop: 06/30/18 23:14 Lidocaine/Sodium Bicarbonate (Buffered Lidocaine 1% In Ns 8.4%) 0.25 ml IDERM ONETIME PRN PRN Reason: Prior to IV Start Naloxone HCl (Narcan) 0.1 mg IVPUSH Q5M PRN PRN Reason: Oversedation Ondansetron HCl (Zofran) 4 mg IVPUSH Q6H PRN PRN Reason: Nausea/Vomiting Oxycodone/Acetaminophen (Percocet 325-5 Mg) 1 - 2 tab PO Q4H PRN PRN Reason: Pain Pharmacy Consult (Consult To Pharmacy) 0 each .XX ASDIRECTED PRN PRN Reason: RX TO ASSIST W/DM MANGEMENT Rivaroxaban (Xarelto) 10 mg PO DAILY [facility] Senna (Senna) 8.6 mg PO BID PRN PRN Reason: Constipation Sodium Chloride (Saline Flush) 10 ml FLUSH ASDIRECTED PRN PRN Reason: Keep Vein Open Tizanidine HCl (Zanaflex) 2 mg PO Q6H PRN PRN Reason: Spasms Discontinued Medications Bupivacaine HCl (Sensorcaine-Mpf 0.75%) Confirm Administered Dose 30 ml .ROUTE .STK-MED ONE Stop: 06/30/18 06:31 Bupivacaine HCl (Marcaine 0.25%) Confirm Administered Dose 30 ml .ROUTE .STK- MED ONE Stop: 06/30/18 08:50 Cefazolin Sodium (Ancef) Confirm Administered Dose 2 gm .ROUTE .STK-MED ONE Stop: 06/30/18 06:36 Cefazolin Sodium (Ancef) Confirm Administered Dose 2 gm .ROUTE .STK-MED ONE Stop: 06/30/18 08:50 Epinephrine HCl 0.3 mg/Cefuroxime Sodium 750 mg/Ketorolac Tromethamine 30 mg/ Sodium Chloride 28.7 ml 0 mg .XX ONETIME ONE Stop: 06/30/18 07:31 Ephedrine Sulfate (Ephedrine In Ns) Confirm Administered Dose 25 mg .ROUTE .STK- MED ONE Stop: 06/30/18 07:50 Epinephrine HCl (Adrenalin) Confirm Administered Dose 1 mg .ROUTE .STK-MED ONE Stop: 06/30/18 08:17 Fentanyl (Sublimaze) Confirm Administered Dose 100 mcg .ROUTE .STK-MED ONE Stop: 06/30/18 07:22 Fentanyl (Sublimaze) Confirm Administered Dose 250 mcg .ROUTE .STK-MED ONE Stop: 06/30/18 07:59 Lidocaine HCl (Xylocaine-Mpf 1%) Confirm Administered Dose 4 mls @ as directed .ROUTE .STK-MED ONE Stop: 06/30/18 06:30 Lactated Ringer's (Ringers, Lactated) Confirm Administered Dose 1,000 mls @ as directed .ROUTE .STK-MED ONE Stop: 06/30/18 06:36 Iodine (Iodine 2% Mild Tincture) Confirm Administered Dose 30 ml .ROUTE .STK- MED ONE Stop: 06/30/18 08:50 Ketamine HCl (Ketalar) Confirm Administered Dose 500 mg .ROUTE .STK-MED ONE Stop: 06/30/18 07:46 Midazolam HCl (Versed 1 Mg/Ml) Confirm Administered Dose 4 mg .ROUTE .STK-MED ONE Stop: 06/30/18 06:31 Propofol (Diprivan 20 Ml) Confirm Administered Dose 600 mg .ROUTE .STK-MED ONE Stop: 06/30/18 06:30 Ropivacaine (Naropin 0.5%) Confirm Administered Dose 30 ml .ROUTE .STK-MED ONE Stop: 06/30/18 08:17 Tranexamic Acid (Cyklokapron) Confirm Administered Dose 1,000 mg .ROUTE .STK- MED ONE Stop: 06/30/18 08:50 Vancomycin HCl (Vancomycin) Confirm Administered Dose 1 gm .ROUTE .STK-MED ONE Stop: 06/30/18 08:50 <Adry Walker - Last Filed: 06/30/18 09:08> Preanesthetic Assessment - Review of Systems General: Other (smoker 1ppd, fibromyalgia, ) Pulmonary: Other (Denies cough) Cardiovascular: Other Gastrointestinal: No Symptoms Neurological: Other Other: Reports: Diabetes (Type II, Blood glucose 158 mg/dl this am. ), Thyroid Problems, Anxiety (Panic Attacks, PTSD.) - Physical Assessment NPO Status Date: 06/29/18 NPO Status Time: 20:00 Pulse: 84 O2 Sat by Pulse Oximetry: 98 Respiratory Rate: 16 Blood Pressure: 166/89 Temperature: 37.1 C ASA Class: 2 Mental Status: Alert & Oriented x3 Airway Class: Mallampati = 1 Dentition: Reports: Dentures Thyro-Mental Finger Breadths: 3 Mouth Opening Finger Breadths: 3 ROM/Head Extension: Full Lungs: Clear to Auscultation, Normal Respiratory Effort Cardiovascular: Regular Rate, Regular Rhythm - Anesthesia Plan Pre-Op Medication Ordered: Anxiolytic - Acknowledgements Anesthesia Type Planned: Regional Block (Post Operative for Pain control)
[2018-06-30] MEDS ORDERED: Ropivacaine 0.5% 5 MG/ML 30 ML SDV ONE (08:16)
[2018-06-30] MEDS ORDERED: EPINEPHrine 1 MG/ML SDV ONE (08:16)
[2018-06-30] MEDS ORDERED: Sennosides 8.6 MG Tab PO PRN (09:00)
[2018-06-30] MEDS ORDERED: Ondansetron 4 MG/2 ML SDV IVPUSH PRN ×2 (09:00→13:06)
[2018-06-30] MEDS ORDERED: Naloxone 0.4 MG/ML SDV IVPUSH PRN (09:00)
[2018-06-30] MEDS ORDERED: HYDROmorphone 0.5 MG/0.5 ML Syringe IVPUSH PRN (09:00)
[2018-06-30] MEDS ORDERED: Bisacodyl 5 MG Tab PO PRN (09:00)
[2018-06-30] MEDS ORDERED: Propofol 200 MG/20 ML SDV ONE ×2 (09:04→12:08)
[2018-06-30] MEDS ORDERED: ceFAZolin 1 GM Vial ONE (09:04)
[2018-06-30] MEDS ORDERED: Midazolam 1 MG/ML 2 ML SDV ONE (09:04)
[2018-06-30] MEDS: ceFAZolin 1 GM Vial ONE ×2 (11:58→12:22)
[2018-06-30] MEDS: Bupivacaine 0.25% 30 ML SDV ONE ×2 (11:58→12:27)
[2018-06-30] MEDS: Iodine/Sodium Iodide 2% Tincture 30 ML Bottle ONE ×2 (11:58→12:20)
[2018-06-30] MEDS: EPINEPHrine 0.3 MG, Cefuroxime 750 MG, Ketorolac 30 MG, Sodium Chloride 0.9% 28.7 ML ONE ×8 (12:00→12:26)
[2018-06-30] MEDS: Vancomycin 1 GM SDV ONE ×2 (12:00→12:29)
[2018-06-30] MEDS ORDERED: Lactated Ringers 1,000 ML ONE (12:38)
[2018-06-30] MEDS ORDERED: Acetaminophen/oxyCODONE 325-5 MG Tab PO PRN (12:52)
[2018-06-30] MEDS ORDERED: Meclizine 12.5 MG Tab PO PRN (13:01)
[2018-06-30] MEDS ORDERED: Prazosin 1 MG Cap PO PRN (13:01)
[2018-06-30] MEDS ORDERED: diphenhydrAMINE 50 MG/ML SDV IVPUSH PRN (13:06)
--- NOTE | 2018-06-30 13:06 | PCM.POSTAN ---
POST ANESTHESIA ASSESSMENT - MENTAL STATUS Mental Status: Alert, Oriented - VITAL SIGNS Pulse Rate: 83 SaO2: 98 Resp Rate: 16 Blood Pressure: 111/62 Temperature: 38.1 C - RESPIRATORY Respiratory Status: Respiratory Rate WNL, Airway Patent, O2 Saturation Stable, Supplemental Oxygen - CARDIOVASCULAR CV Status: Pulse Rate WNL, Blood Pressure Stable - GASTROINTESTINAL GI Status: No Symptoms - PAIN Pain Score: 0 - POST OP HYDRATION Hydration Status: Adequate & Stable
--- NOTE | 2018-06-30 13:51 | CR ---
Left knee: AP and lateral views of the left knee were obtained. Comparison: Prior standing bilateral knee exam of 01/06/18. Knee prosthesis is seen. This has been recently placed. Components are aligned. Soft tissue air is noted from the surgical procedure. Underlying bony structures are intact. Impression: 1. Satisfactory postoperative radiographic appearance of recently placed left knee prosthesis. Diagnostic code #2
--- NOTE | 2018-06-30 14:03 | PCM.SN ---
- Free Text/Narrative Note: Left selective femoral nerve block at the adductor canal for post-procedure pain control Time Out: 1318 Start: 1318 End: 1324 Chart reviewed. Consent signed. Questions answered. Appropriate monitors applied. Time out performed. Left mid-shaft femur evaluated with ultrasound. Scanning medially femur, I was able to identify the femoral artery in the adductor canal. The saphenous nerve was lateral to the artery. The skin was prepped lateral to the ultrasound probe with chlorahexadine. The 21ga 4 insulated block needle was inserted under direct ultrasound guidance into the adductor canal. 25mL of 0.5% ropivacaine with 1:200,000 epinephrine was injected cirmcumferentially about the nerve with intermittent negative aspiration every 5mL. Patient tolerated the procedure well. See pictures on progress note and vital signs on nurses notes. Block completed postoperatively. Israel Walker PRODUCTION RECOVERY OPERATOR
[2018-06-30] MEDS: oxyCODONE 5 MG Tab PO PRN ×2 (15:11→20:46)
[2018-06-30] MEDS: Gabapentin 600 MG Tab PO SCH ×2 (16:46→20:52)
[2018-06-30] MEDS: Gabapentin 100 MG Cap PO SCH ×2 (16:46→20:49)
[2018-06-30] MEDS: Prazosin 1 MG Cap PO SCH ×2 (16:46→20:50)
[2018-06-30] MEDS: ceFAZolin 2 GM in Premix Bag 1 BAG IV SCH (17:40)
[2018-06-30] MEDS: tiZANidine 4 MG Tab PO PRN (19:00)
[2018-06-30] MEDS: Alogliptin 12.5 MG TABLET PO SCH (20:49)
[2018-06-30] MEDS: metFORMIN 500 MG Tab PO SCH (20:49)
[2018-06-30] MEDS: Calcium Carbonate 600 MG Tab PO SCH (20:51)
[2018-06-30] MEDS: Docusate Sodium 100 MG Cap PO SCH (20:52)
[2018-06-30] MEDS ORDERED: Citalopram 20 MG Tab PO SCH (21:00)
[2018-06-30] MEDS ORDERED: ClonazePAM 1 MG Tab PO SCH (21:00)
[2018-06-30] MEDS ORDERED: Ezetimibe 10 MG Tab PO SCH (21:00)
[2018-07-01] MEDS: oxyCODONE 5 MG Tab PO PRN ×3 (01:07→10:00)
[2018-07-01] MEDS: ceFAZolin 2 GM in Premix Bag 1 BAG IV SCH ×2 (02:36→10:03)
[2018-07-01] MEDS: tiZANidine 4 MG Tab PO PRN ×2 (02:46→08:38)
--- NOTE | 2018-07-01 07:53 | PCM.SURGPN ---
- General Info Date of Service: 07/01/18 POD#: 1 Functional Status: Reports: Pain Controlled, Tolerating Diet, Ambulating, Urinating, Incentive Spirometry - Review of Systems General: Denies: Fever, Chills Pulmonary: Denies: Shortness of Breath, Cough Cardiovascular: Denies: Chest Pain, Palpitations Gastrointestinal: Denies: Abdominal Pain (The pt states, aside from knee pain, she feels well.) Genitourinary: Denies: Dysuria, Pain Musculoskeletal: Reports: Other (The pt states she notes pain at knee with activity.) - Patient Data Vitals - Most Recent: Last Vital Signs Temp 98.1 F 07/01/18 05:49 Pulse 87 07/01/18 05:49 Resp 20 07/01/18 05:49 BP 157/68 H 07/01/18 05:49 Pulse Ox 93 L 07/01/18 05:49 Weight - Most Recent: 210 lb I&O - Last 24 Hours: Intake & Output 06/30/18 07/01/18 07/01/18 22:59 06:59 14:59 Intake Total 840 Balance 840 Lab Results Last 24 Hrs: Laboratory Results - last 24 hr 06/30/18 06/30/18 07/01/18 Range/Units 08:16 18:17 05:22 WBC 6.26 (3.98-10.04) K/mm3 RBC 3.89 L (3.98-5.22) M/mm3 Hgb 11.9 D (11.2-15.7) gm/L Hct 36.2 (34.1-44.9) % MCV 93.1 (79.4-94.8) fl MCH 30.6 (25.6-32.2) pg MCHC 32.9 (32.2-35.5) g/dl RDW Std Deviation 43.9 (36.4-46.3) fL Plt Count 141 L (182-369) K/mm3 MPV 11.1 (9.4-12.3) fl Sodium (136-145) mEq/L Potassium (3.5-5.1) mEq/L Chloride (98-107) mEq/L Carbon Dioxide (21-32) mEq/L Anion Gap (5-15) BUN (7-18) mg/dL Creatinine (0.55-1.02) mg/dL Est Cr Clr Drug Dosing mL/min Estimated GFR (MDRD) (>60) mL/min BUN/Creatinine Ratio (14-18) Glucose (80-115) mg/dL POC Glucose 158 H 199 H (80-115) mg/dL Calcium (8.5-10.1) mg/dL Total Bilirubin (0.2-1.0) mg/dL AST (15-37) U/L ALT (14-59) U/L Alkaline Phosphatase (46-116) U/L Total Protein (6.4-8.2) g/dl Albumin (3.4-5.0) g/dl Globulin gm/dL Albumin/Globulin Ratio (1-2) 07/01/18 07/01/18 Range/Units 05:22 06:50 WBC (3.98-10.04) K/mm3 RBC (3.98-5.22) M/mm3 Hgb (11.2-15.7) gm/L Hct (34.1-44.9) % MCV (79.4-94.8) fl MCH (25.6-32.2) pg MCHC (32.2-35.5) g/dl RDW Std Deviation (36.4-46.3) fL Plt Count (182-369) K/mm3 MPV (9.4-12.3) fl Sodium 140 (136-145) mEq/L Potassium 3.7 (3.5-5.1) mEq/L Chloride 104 (98-107) mEq/L Carbon Dioxide 29 (21-32) mEq/L Anion Gap 10.7 (5-15) BUN 18 (7-18) mg/dL Creatinine 1.0 (0.55-1.02) mg/dL Est Cr Clr Drug Dosing 50.37 mL/min Estimated GFR (MDRD) 56 (>60) mL/min BUN/Creatinine Ratio 18.0 (14-18) Glucose 161 H (80-115) mg/dL POC Glucose 169 H (80-115) mg/dL Calcium 9.1 (8.5-10.1) mg/dL Total Bilirubin 0.5 (0.2-1.0) mg/dL AST 19 (15-37) U/L ALT 19 (14-59) U/L Alkaline Phosphatase 50 (46-116) U/L Total Protein 5.8 L (6.4-8.2) g/dl Albumin 2.9 L (3.4-5.0) g/dl Globulin 2.9 gm/dL Albumin/Globulin Ratio 1.0 (1-2) Med Orders - Current: Current Medications Alogliptin Benzoate (Alogliptin) 12.5 mg PO BID [facility] Last Admin: 06/30/18 20:49 Dose: 12.5 mg Aspirin (Halfprin) 162 mg PO DAILY [facility] Bisacodyl (Dulcolax) 5 mg PO DAILY PRN PRN Reason: Constipation Calcium Carbonate/Glycine (Calcium Carbonate) 600 mg PO BID [facility] Last Admin: 06/30/18 20:51 Dose: 600 mg Cholecalciferol (Vitamin D3) 5,000 unit PO DAILY [facility] Citalopram Hydrobromide (Celexa) 40 mg PO BEDTIME [facility] Last Admin: 06/30/18 20:51 Dose: 40 mg Clonazepam (Klonopin) 2 mg PO BEDTIME [facility] Last Admin: 06/30/18 20:48 Dose: 2 mg Cyanocobalamin (Vitamin B12) 0 mcg PO DAILY [facility] Diphenhydramine HCl (Benadryl) 25 mg IVPUSH Q6H PRN PRN Reason: itching Docusate Sodium (Colace) 100 mg PO BID [facility] Last Admin: 06/30/18 20:52 Dose: 100 mg Ezetimibe (Zetia) 10 mg PO BEDTIME [facility] Last Admin: 06/30/18 20:51 Dose: 10 mg Folic Acid (Folic Acid) 1 mg PO DAILY [facility] Gabapentin (Neurontin) 600 mg PO QID [facility] Last Admin: 06/30/18 20:52 Dose: 600 mg Gabapentin (Neurontin) 200 mg PO QID [facility] Last Admin: 06/30/18 20:49 Dose: 200 mg Hydromorphone HCl (Dilaudid) 0.2 mg IVPUSH Q2H PRN PRN Reason: Pain (moderate 4-6) Cefazolin Sodium/Dextrose 2 gm (/ Premix) 50 mls @ 100 mls/hr IV Q8H [facility] Stop: 07/01/18 10:29 Last Admin: 07/01/18 02:36 Dose: 100 mls/hr Levothyroxine Sodium (Synthroid) 50 mcg PO DAILY [facility] Lidocaine/Sodium Bicarbonate (Buffered Lidocaine 1% In Ns 8.4%) 0.25 ml IDERM ONETIME PRN PRN Reason: Prior to IV Start Meclizine HCl (Antivert) 25 mg PO BID PRN PRN Reason: vertigo Metformin HCl (Glucophage) 1,000 mg PO BID [facility] Last Admin: 06/30/18 20:49 Dose: 1,000 mg Multivitamins (Thera) 1 each PO DAILY [facility] Naloxone HCl (Narcan) 0.1 mg IVPUSH Q5M PRN PRN Reason: Oversedation Ondansetron HCl (Zofran) 4 mg IVPUSH Q6H PRN PRN Reason: Nausea/Vomiting Ondansetron HCl (Zofran) 4 mg IVPUSH ONETIME PRN PRN Reason: Nausea/Vomiting Oxybutynin Chloride (Oxybutynin Er) 5 mg PO DAILY [facility] Oxycodone HCl (Oxycodone) 5 - 10 mg PO Q4H PRN PRN Reason: Pain Last Admin: 07/01/18 05:45 Dose: 10 mg Pantoprazole Sodium (Protonix) 40 mg PO DAILY [facility] Pharmacy Consult (Consult To Pharmacy) 0 each .XX ASDIRECTED PRN PRN Reason: RX TO ASSIST W/DM MANGEMENT Prazosin HCl (Minpress) 1 mg PO TID [facility] Last Admin: 06/30/18 20:50 Dose: 1 mg Prazosin HCl (Minpress) 4 mg PO BEDTIME PRN PRN Reason: PTSD Rivaroxaban (Xarelto) 10 mg PO DAILY [facility] Senna (Senna) 8.6 mg PO BID PRN PRN Reason: Constipation Sodium Chloride (Saline Flush) 10 ml FLUSH ASDIRECTED PRN PRN Reason: Keep Vein Open Tizanidine HCl (Zanaflex) 2 mg PO Q6H PRN PRN Reason: Spasms Last Admin: 07/01/18 02:46 Dose: 2 mg Triamterene/HCTZ (Dyazide 25-37.5 Mg) 0 each PO DAILY [facility] Discontinued Medications Bupivacaine HCl (Sensorcaine-Mpf 0.75%) Confirm Administered Dose 30 ml .ROUTE .STK-MED ONE Stop: 06/30/18 06:31 Bupivacaine HCl (Marcaine 0.25%) Confirm Administered Dose 30 ml .ROUTE .STK- MED ONE Stop: 06/30/18 08:50 Last Admin: 06/30/18 12:27 Dose: 30 ml Cefazolin Sodium (Ancef) Confirm Administered Dose 2 gm .ROUTE .STK-MED ONE Stop: 06/30/18 06:36 Cefazolin Sodium (Ancef) Confirm Administered Dose 2 gm .ROUTE .STK-MED ONE Stop: 06/30/18 08:50 Last Admin: 06/30/18 12:22 Dose: 2 gm Cefazolin Sodium (Ancef) Confirm Administered Dose 2 gm .ROUTE .STK-MED ONE Stop: 06/30/18 09:05 Epinephrine HCl 0.3 mg/Cefuroxime Sodium 750 mg/Ketorolac Tromethamine 30 mg/ Sodium Chloride 28.7 ml 0 mg .XX ONETIME ONE Stop: 06/30/18 07:31 Last Admin: 06/30/18 12:26 Dose: 780.3 mg Ephedrine Sulfate (Ephedrine In Ns) Confirm Administered Dose 25 mg .ROUTE .STK- MED ONE Stop: 06/30/18 07:50 Epinephrine HCl (Adrenalin) Confirm Administered Dose 1 mg .ROUTE .STK-MED ONE Stop: 06/30/18 08:17 Fentanyl (Sublimaze) Confirm Administered Dose 100 mcg .ROUTE .STK-MED ONE Stop: 06/30/18 07:22 Fentanyl (Sublimaze) Confirm Administered Dose 250 mcg .ROUTE .STK-MED ONE Stop: 06/30/18 07:59 Lactated Ringer's (Ringers, Lactated) 1,000 mls @ 125 mls/hr IV ASDIRECTED [facility] Last Admin: 06/30/18 08:16 Dose: 125 mls/hr Lidocaine HCl (Xylocaine-Mpf 1%) Confirm Administered Dose 4 mls @ as directed .ROUTE .STK-MED ONE Stop: 06/30/18 06:30 Lactated Ringer's (Ringers, Lactated) Confirm Administered Dose 1,000 mls @ as directed .ROUTE .STK-MED ONE Stop: 06/30/18 06:36 Lactated Ringer's (Ringers, Lactated) Confirm Administered Dose 1,000 mls @ as directed .ROUTE .STK-MED ONE Stop: 06/30/18 12:39 Iodine (Iodine 2% Mild Tincture) Confirm Administered Dose 30 ml .ROUTE .STK- MED ONE Stop: 06/30/18 08:50 Last Admin: 06/30/18 12:20 Dose: 18 ml Ketamine HCl (Ketalar) Confirm Administered Dose 500 mg .ROUTE .STK-MED ONE Stop: 06/30/18 07:46 Midazolam HCl (Versed 1 Mg/Ml) Confirm Administered Dose 4 mg .ROUTE .STK-MED ONE Stop: 06/30/18 06:31 Midazolam HCl (Versed 1 Mg/Ml) Confirm Administered Dose 4 mg .ROUTE .STK-MED ONE Stop: 06/30/18 09:05 Oxycodone/Acetaminophen (Percocet 325-5 Mg) 1 - 2 tab PO Q4H PRN PRN Reason: Pain Propofol (Diprivan 20 Ml) Confirm Administered Dose 600 mg .ROUTE .STK-MED ONE Stop: 06/30/18 06:30 Propofol (Diprivan 20 Ml) Confirm Administered Dose 600 mg .ROUTE .STK-MED ONE Stop: 06/30/18 09:05 Propofol (Diprivan 20 Ml) Confirm Administered Dose 200 mg .ROUTE .STK-MED ONE Stop: 06/30/18 12:09 Ropivacaine (Naropin 0.5%) Confirm Administered Dose 30 ml .ROUTE .STK-MED ONE Stop: 06/30/18 08:17 Tranexamic Acid (Cyklokapron) Confirm Administered Dose 1,000 mg .ROUTE .STK- MED ONE Stop: 06/30/18 08:50 Last Admin: 06/30/18 12:33 Dose: 1,000 mg Vancomycin HCl (Vancomycin) Confirm Administered Dose 1 gm .ROUTE .STK-MED ONE Stop: 06/30/18 08:50 Last Admin: 06/30/18 12:29 Dose: 1 gm - Exam Wound/Incisions: Dressing Dry and Intact General: Alert, Cooperative, No Acute Distress Lungs: Normal Respiratory Effort Extremities: Other (NVS intact for LLE. Wood's negative for LLE.) - Problem List Review Problem List Initiated/Reviewed/Updated: Yes - My Orders Last 24 Hours: Active Orders 24 hr Category Date Time Status Blood Glucose Check, Bedside [] BIDMEALS Care 07/01/18 07:00 Active Notify Provider [RC] ASDIRECTED Care 06/30/18 13:06 Active Pulse Oximetry [RC] ASDIRECTED Care 06/30/18 13:06 Active Ready for Discharge [RC] PER UNIT ROUTINE Care 07/01/18 07:51 Ordered ADA Diabetic [[place] [employer] Diet] [DIET Diet 06/30/18 Dinner Active ] Alogliptin Benzoate [Alogliptin] Med 06/30/18 21:00 Active 12.5 mg PO BID Aspirin [Halfprin] Med 07/01/18 09:00 Active 162 mg PO DAILY Bisacodyl [Dulcolax] Med 06/30/18 09:00 Active 5 mg PO DAILY PRN Calcium Carbonate Med 06/30/18 21:00 Active 600 mg PO BID Cholecalciferol (Vitamin D3) [Vitamin D3] Med 07/01/18 09:00 Active 5,000 unit PO DAILY Citalopram [Celexa] Med 06/30/18 21:00 Active 40 mg PO BEDTIME ClonazePAM [KlonoPIN] Med 06/30/18 21:00 Active 2 mg PO BEDTIME Cyanocobalamin (Vitamin B12) [Vitamin B12] Med 07/01/18 09:00 Active 0 mcg PO DAILY Docusate Sodium [Colace] Med 06/30/18 21:00 Active 100 mg PO BID Ezetimibe [Zetia] Med 06/30/18 21:00 Active 10 mg PO BEDTIME Folic Acid Med 07/01/18 09:00 Active 1 mg PO DAILY Gabapentin [Neurontin] Med 06/30/18 17:00 Active 200 mg PO QID Gabapentin [Neurontin] Med 06/30/18 17:00 Active 600 mg PO QID HCTZ/Triamterene [Dyazide 25-37.5 MG] Med 07/01/18 09:00 Active 0 each PO DAILY HYDROmorphone [Dilaudid] Med 06/30/18 09:00 Active 0.2 mg IVPUSH Q2H PRN Levothyroxine [Synthroid] Med 07/01/18 09:00 Active 50 mcg PO DAILY Meclizine [Antivert] Med 06/30/18 13:01 Active 25 mg PO BID PRN Multivitamins,Therapeutic [Thera] Med 07/01/18 09:00 Active 1 each PO DAILY Naloxone [Narcan] Med 06/30/18 09:00 Active 0.1 mg IVPUSH Q5M PRN Ondansetron [Zofran] Med 06/30/18 13:06 Active 4 mg IVPUSH ONETIME PRN Ondansetron [Zofran] Med 06/30/18 09:00 Active 4 mg IVPUSH Q6H PRN Oxybutynin [Oxybutynin ER] Med 07/01/18 09:00 Active 5 mg PO DAILY Pantoprazole [ProTONIX] Med 07/01/18 09:00 Active 40 mg PO DAILY Prazosin [Minpress] Med 06/30/18 15:00 Active 1 mg PO TID Prazosin [Minpress] Med 06/30/18 13:01 Active 4 mg PO BEDTIME PRN Rivaroxaban [Xarelto] Med 07/01/18 09:00 Active 10 mg PO DAILY Sennosides [Senna] Med 06/30/18 09:00 Active 8.6 mg PO BID PRN ceFAZolin [Ancef] 2 gm Med 06/30/18 18:00 Active Premix Bag 1 bag IV Q8H diphenhydrAMINE [Benadryl] Med 06/30/18 13:06 Active 25 mg IVPUSH Q6H PRN metFORMIN [Glucophage] Med 06/30/18 21:00 Active 1,000 mg PO BID oxyCODONE Med 06/30/18 12:57 Active 5 - 10 mg PO Q4H PRN tiZANidine [Zanaflex] Med 06/30/18 09:00 Active 2 mg PO Q6H PRN Medication Orders Alogliptin Benzoate (Alogliptin) 12.5 mg PO BID [facility] Last Admin: 06/30/18 20:49 Dose: 12.5 mg Aspirin (Halfprin) 162 mg PO DAILY [facility] Bisacodyl (Dulcolax) 5 mg PO DAILY PRN PRN Reason: Constipation Calcium Carbonate/Glycine (Calcium Carbonate) 600 mg PO BID [facility] Last Admin: 06/30/18 20:51 Dose: 600 mg Cholecalciferol (Vitamin D3) 5,000 unit PO DAILY [facility] Citalopram Hydrobromide (Celexa) 40 mg PO BEDTIME [facility] Last Admin: 06/30/18 20:51 Dose: 40 mg Clonazepam (Klonopin) 2 mg PO BEDTIME [facility] Last Admin: 06/30/18 20:48 Dose: 2 mg Cyanocobalamin (Vitamin B12) 0 mcg PO DAILY [facility] Diphenhydramine HCl (Benadryl) 25 mg IVPUSH Q6H PRN PRN Reason: itching Docusate Sodium (Colace) 100 mg PO BID [facility] Last Admin: 06/30/18 20:52 Dose: 100 mg Ezetimibe (Zetia) 10 mg PO BEDTIME [facility] Last Admin: 06/30/18 20:51 Dose: 10 mg Folic Acid (Folic Acid) 1 mg PO DAILY [facility] Gabapentin (Neurontin) 600 mg PO QID [facility] Last Admin: 06/30/18 20:52 Dose: 600 mg Admin: 06/30/18 16:46 Dose: 600 mg Gabapentin (Neurontin) 200 mg PO QID [facility] Last Admin: 06/30/18 20:49 Dose: 200 mg Admin: 06/30/18 16:46 Dose: 200 mg Hydromorphone HCl (Dilaudid) 0.2 mg IVPUSH Q2H PRN PRN Reason: Pain (moderate 4-6) Cefazolin Sodium/Dextrose 2 gm (/ Premix) 50 mls @ 100 mls/hr IV Q8H [facility] Stop: 07/01/18 10:29 Last Admin: 07/01/18 02:36 Dose: 100 mls/hr Infusion: 06/30/18 18:10 Dose: 100 mls/hr Admin: 06/30/18 17:40 Dose: 100 mls/hr Levothyroxine Sodium (Synthroid) 50 mcg PO DAILY [facility] Lidocaine/Sodium Bicarbonate (Buffered Lidocaine 1% In Ns 8.4%) 0.25 ml IDERM ONETIME PRN PRN Reason: Prior to IV Start Meclizine HCl (Antivert) 25 mg PO BID PRN PRN Reason: vertigo Metformin HCl (Glucophage) 1,000 mg PO BID [facility] Last Admin: 06/30/18 20:49 Dose: 1,000 mg Multivitamins (Thera) 1 each PO DAILY [facility] Naloxone HCl (Narcan) 0.1 mg IVPUSH Q5M PRN PRN Reason: Oversedation Ondansetron HCl (Zofran) 4 mg IVPUSH Q6H PRN PRN Reason: Nausea/Vomiting Ondansetron HCl (Zofran) 4 mg IVPUSH ONETIME PRN PRN Reason: Nausea/Vomiting Oxybutynin Chloride (Oxybutynin Er) 5 mg PO DAILY [facility] Oxycodone HCl (Oxycodone) 5 - 10 mg PO Q4H PRN PRN Reason: Pain Last Admin: 07/01/18 05:45 Dose: 10 mg Admin: 07/01/18 01:07 Dose: 10 mg Admin: 06/30/18 20:46 Dose: 10 mg Admin: 06/30/18 15:11 Dose: 5 mg Pantoprazole Sodium (Protonix) 40 mg PO DAILY [facility] Pharmacy Consult (Consult To Pharmacy) 0 each .XX ASDIRECTED PRN PRN Reason: RX TO ASSIST W/DM MANGEMENT Prazosin HCl (Minpress) 1 mg PO TID [facility] Last Admin: 06/30/18 20:50 Dose: 1 mg Admin: 06/30/18 16:46 Dose: 1 mg Prazosin HCl (Minpress) 4 mg PO BEDTIME PRN PRN Reason: PTSD Rivaroxaban (Xarelto) 10 mg PO DAILY [facility] Senna (Senna) 8.6 mg PO BID PRN PRN Reason: Constipation Sodium Chloride (Saline Flush) 10 ml FLUSH ASDIRECTED PRN PRN Reason: Keep Vein Open Tizanidine HCl (Zanaflex) 2 mg PO Q6H PRN PRN Reason: Spasms Last Admin: 07/01/18 02:46 Dose: 2 mg Admin: 06/30/18 19:00 Dose: 2 mg Triamterene/HCTZ (Dyazide 25-37.5 Mg) 0 each PO DAILY [facility] - Assessment Assessment (Free Text/Narrative):: POD#1 - left TKA - Plan Plan (Free Text/Narrative):: 1. Hgb 11.9. 2. Discharge to home today if therapy goals met. 3. Oxycodone for pain management. 4. Xarelto for VTE prophylaxis. The pt's case was discussed with Dr. Salamanca.
--- NOTE | 2018-07-01 08:00 | PCM48HPAN ---
Post Anesthesia Note - EVALUATION WITHIN 48HRS OF ANESTHETIC Vital Signs in Normal Range: Yes Patient Participated in Evaluation: Yes Respiratory Function Stable: Yes Airway Patent: Yes Cardiovascular Function Stable: Yes Hydration Status Stable: Yes Pain Control Satisfactory: Yes Nausea and Vomiting Control Satisfactory: Yes (nausea and vomiting last monse) Mental Status Recovered: Yes (sitting up in chair- finished breakfast- feels ok - no nausesa now) Pulse Rate: 87 Resp Rate: 20 Temperature: 98.1 F Blood Pressure: 157/68
[2018-07-01] MEDS: Calcium Carbonate 600 MG Tab PO SCH (08:42)
[2018-07-01] MEDS: Prazosin 1 MG Cap PO SCH (08:43)
[2018-07-01] MEDS: metFORMIN 500 MG Tab PO SCH (08:45)
[2018-07-01] MEDS: Gabapentin 100 MG Cap PO SCH (08:46)
[2018-07-01] MEDS: Alogliptin 12.5 MG TABLET PO SCH (08:47)
[2018-07-01] MEDS: Gabapentin 600 MG Tab PO SCH (08:49)
[2018-07-01] MEDS: Docusate Sodium 100 MG Cap PO SCH (08:49)
[2018-07-01 08:51] VITALS: BP 149/82
[2018-07-01] MEDS ORDERED: Aspirin 81 MG Tab.EC PO SCH (09:00)
[2018-07-01] MEDS ORDERED: Pantoprazole 40 MG Tab.CR PO SCH (09:00)
[2018-07-01] MEDS ORDERED: Cholecalciferol (Vitamin D3) 5,000 UNIT Tab PO SCH (09:00)
[2018-07-01] MEDS ORDERED: Multivitamins,Therapeutic Tab PO SCH (09:00)
[2018-07-01] MEDS ORDERED: Cyanocobalamin (Vitamin B12) 1,000 MCG Tab PO SCH (09:00)
[2018-07-01] MEDS ORDERED: Folic Acid 1 MG Tab PO SCH (09:00)
[2018-07-01] MEDS ORDERED: Hydrochlorothiazide/Triamterene 25-37.5 MG Cap PO SCH (09:00)
[2018-07-01] MEDS ORDERED: Rivaroxaban 10 MG Tab PO SCH (09:00)
[2018-07-01] MEDS ORDERED: Levothyroxine 50 MCG Tab PO SCH (09:00)
[2018-07-01] MEDS ORDERED: Oxybutynin 5 MG Tab.ER PO SCH (09:00)
--- NOTE | 2018-07-04 06:53 | PCM.OPNOTE ---
- General Post-Op/Procedure Note Date of Surgery/Procedure: 06/30/18 Operative Procedure(s): left total knee arthroplasty Pre Op Diagnosis: left knee osteoarthrosis Post-Op Diagnosis: Same Anesthesia Technique: Local, MAC, Spinal Primary Surgeon: Navdeep Salamanca Anesthesia Provider: Lynn Montesinos Tank Car Mechanic: Krystina Acuña Tank Car Mechanic: Dawn Guillen in mLs: 20 Complications: None Condition: Good Free Text/Narrative:: size 3/3 9mm 32x10
--- NOTE | 2018-07-04 07:13 | OR ---
DATE OF OPERATION: 06/30/2018 SURGEON: Navdeep Salamanca MD OPERATION PERFORMED: Left total knee arthroplasty. PREOPERATIVE DIAGNOSIS: Left knee osteoarthrosis. POSTOPERATIVE DIAGNOSIS: Left knee osteoarthrosis. ANESTHESIA: Local MAC with spinal. ANESTHESIA PROVIDER: Lynn Montesinos. ASSISTANTS: Krystina Acuña PA-C, and Dawn Guillen LPN. ESTIMATED BLOOD LOSS: 20 mL. COMPLICATIONS: None. CONDITION: Stable. IMPLANTS: 1. Will size 3 cemented PS femur. 2. Will size 3 universal tibial base plate. 3. [place] size 3 9 mm PS X3 polyethylene insert. 4. [place] size 32 x 10 mm asymmetric patella. DESCRIPTION OF PROCEDURE: The patient was identified in the preop holding area. Proper site was marked and identified by the surgeon. The patient was taken back to the operating theater. After adequate anesthesia, the patient's left lower extremity had a nonsterile tourniquet applied and it was sterilely prepped and draped in the usual sterile fashion. OR time-out was performed. The patient received 2 g IV Ancef. At this time, the left lower extremity was exsanguinated. Tourniquet was insufflated to 300 mmHg. Standard medial parapatellar incision was made. Medial parapatellar arthrotomy was created. Deep fibers of the MCL were raised and anterior fat pad was resected. At this time, attention was turned to the patella. Patella measured a 23, it was resected to a 13 for a 32 x 10 mm patella. Drill holes were then drilled and found to be in adequate position. The drill was then drilled in the distal femur and the intramedullary distal femoral cutting guide was then placed. 8 mm was resected off the distal femur and was found to be an adequate resection. Sizing guide was placed. It was found to be a size 3 PS femur that was shown on the implant record at the beginning of this dictation. The drill holes were drilled for the epicondylar axis using [place] line and epicondyles as reference. At this time, the 4-in - 1 cutting block was placed. An anterior posterior and anterior and posterior chamfer cuts were then completed. At this time box cut was completed. Attention was turned to the tibia. The posterior medial lateral retractors were placed. The extramedullary tibial guide was placed. It was placed in the old footprint of the ACL. It was aligned with the center of the ankle and 0 degrees of slope, 9 mm was then resected off the unaffected side. There was found to be an acceptable reduction. At this time, posterior osteophytes were removed along with medial and lateral meniscus. A trial implant was placed with a correct sized tibia that was mentioned at the beginning of the dictation. A [place] size 3 9 mm PS X3 polyethylene insert was then placed. The patient's knee was brought through range of motion. The patella was tracking centrally and was stable to varus and valgus stress. Alignment was found to be roughly at 0 degrees. The tibia was stamped and drilled in proper rotation. All cut surfaces were irrigated and completely dried. The universal tibial base plate was impacted in place. Next, the [place] size 3 PS femur impacted into place and the Will size 3 9 mm PS X3 polyethylene insert was placed. Excess cement was removed. The patient's knee was brought into full extension. The patella was then cemeted in place at this time. One liter dilute Betadine solution was irrigated through the knee along with 3 L of pulse lavage irrigation with Ancef. Periarticular injection was then completed. The patient's knee was brought through a range of motion. Once the cement had time to set up and it was found to be stable to varus valgus stress, the patella was tracking centrally with full range of motion. At this time, a #2 barbed suture was used for closure of the medial parapatellar arthrotomy. Topical tranexamic acid was placed. 2-0 Vicryl was used subcutaneously, Prineo was used for the skin. The patient tolerated the procedure well and was sent to the PACU in stable condition. HARRISON /[id number] MAURI
== END 2018-07-01 11:17 | disposition home or self-care (01) ==
LOC: JD.SDS 07:45 → JD.MS 07:50 → JD.SDS 07-01 11:17
PROVIDERS: ATTEND Orthopaedic Surgery
DX: M17.12 Unilateral primary osteoarthritis, left knee (principal); I10 Essential (primary) hypertension; I65.29 Occlusion and stenosis of unspecified carotid artery; E11.9 Type 2 diabetes mellitus without complications; E03.9 Hypothyroidism, unspecified; E78.00 Pure hypercholesterolemia, unspecified; F41.9 Anxiety disorder, unspecified; F32.9 Major depressive disorder, single episode, unspecified; F17.290 Nicotine dependence, other tobacco product, uncomplicated; Z88.5 Allergy status to narcotic agent; Z88.0 Allergy status to penicillin; Z88.8 Allergy status to other drugs, medicaments and biological substances; Z91.040 Latex allergy status; Z96.651 Presence of right artificial knee joint; Z79.82 Long term (current) use of aspirin; Z79.84 Long term (current) use of oral hypoglycemic drugs; Z79.899 Other long term (current) drug therapy
CPT/HCPCS: 01402; 36415; 64450; 73560-26-LT; 73560-LT; 80053; 82962; 85027; 87641; 97110-GP; 97116-GP; 97161-GP; 97165-GO; 97535-GO; A9270-GY; C1713; C1776; J0171; J0690; J0697; J1885; J2001; J2250; J2405; J2704; J2795; J3010; J3370; J3490; J7050; J7120

== ENCOUNTER 2019-05-12 12:31 | Emergency (ER) | payer MEDICARE ==
[2019-05-12 12:56] VITALS: BP 147/76; PULSE 70
[2019-05-12] MEDS ORDERED: LORazepam 2 MG/ML SDV IVPUSH ONE (14:19)
[2019-05-12] MEDS ORDERED: Haloperidol Lactate 5 MG/ML SDV IVPUSH ONE (14:20)
[2019-05-12] MEDS ORDERED: Benztropine 1 MG Tab PO ONE (14:21)
[2019-05-12] MEDS ORDERED: Metoclopramide 10 MG/2 ML SDV IVPUSH ONE (14:21)
--- NOTE | 2019-05-12 14:23 | EDM.PDOC ---
ED HPI GENERAL MEDICAL PROBLEM - General Source of Information: Reports: Patient History Limitations: Reports: No Limitations - History of Present Illness Onset: Gradual (since saturday ) Onset Date: 05/10/19 Onset Time: 13:00 <MarisolDerek Glen - Last Filed: 05/12/19 15:27> - General Source of Information: Reports: Patient History Limitations: Reports: No Limitations - History of Present Illness Duration: Hour(s): Location: Reports: Generalized ( strong sense of vertigo with the room spinnining. ) Quality: Reports: Other (vertigo) Improves with: Reports: Rest Worsens with: Reports: Movement ([facility] ) Context: Reports: Other (spontaneous occurrence. 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 Ms. Andrew states that she feels like she has had ear pain and sore throat that has been intermittent in nature for two weeks preceding her vertigo. She states that the vertigo started on Saturday sometime late afternoon, and was mild throughout Saturday (05/10/2019). On Saturday (05/11/2019) she awoke and the vertigo had worsened through the night and was worsened by standing up or turning around too quickly, but then the vertigo started to lessen throughout the Saturday and she thought she would feel better when she went to bed. Then she awoke this morning at 8 a.m. and the vertigo had become so severe that she could not stop spinning, and at 9 a.m. she took one of her zofran and it did not help her vertigo. In addition to vertigo she reports some mild congestion, a headache that fluctuates with her vertigo, tinnitus, and general nausea. However, today she denies any vomiting, sore throat, ear pain, hearing loss, loss of sensation across the body, eye pain or vision changes, chest pain, and dyspnea. Beyond here main complaint of vertigo Ms. Andrew states that she has been finding "piles of white powder around her house" and she has no idea how it is getting there although she is insistent that this is being placed there by two people who she "senses an evil presence" from and keep breaking in to her home without her knowing about it. I asked if she has contacted the police and she stated that she had but they cannot find the people who keep doing this to her. She does confirm a PMH of vertigo prior to this episode which went away after she saw someone for it, but did not know who it is. She additionally denied taking any medications other than her zofran for nausea, although her med list states that she is taking others. (Derek Damon) - Related Data Allergies Allergy/AdvReac Type Severity Reaction Status Date / Time codeine Allergy Severe Airway Verified 05/12/19 14:05 Tightness fentanyl [From Duragesic] Allergy Severe Airway Verified 05/12/19 14:05 Tightness morphine Allergy Intermediate Hives Verified 05/12/19 14:05 latex Allergy Mild Rash Verified 05/12/19 14:05 pregabalin [From Lyrica] Allergy Hives Verified 06/27/18 13:40 oxycodone [From OxyContin] AdvReac Severe Seizure Verified 05/12/19 14:05 bupropion [From Wellbutrin] AdvReac Tremors Verified 06/30/18 07:24 Penicillins AdvReac Muscle Verified 06/27/18 13:40 Aches Home Meds: Home Meds Levothyroxine [Synthroid] 50 mcg PO DAILY 09/27/16 [History] Pantoprazole [ProTONIX] 40 mg PO DAILY 09/27/16 [History] tiZANidine HCl [Tizanidine HCl] 4 mg PO Q8H PRN 09/27/16 [History] Cholecalciferol (Vitamin D3) [Vitamin D3] 5,000 unit PO DAILY 06/03/17 [History] Folic Acid 1 mg PO DAILY 06/03/17 [History] Aspirin [Adult Aspirin] 81 mg PO DAILY 04/18/18 [History] Ezetimibe 10 mg PO BEDTIME 04/18/18 [History] Gabapentin [Neurontin] 800 mg PO QID 04/18/18 [History] Triamterene/Hydrochlorothiazid [Dyazide 37.5-25] 1 cap PO DAILY 04/18/18 [ History] Oxybutynin Chloride [Oxybutynin Chloride ER] 5 mg PO BEDTIME 04/21/18 [History] Multivitamin with Minerals [Hair, Skin and Nails] 1 tab PO DAILY 06/27/18 [ History] Sennosides [Senna] 8.6 mg PO BID PRN tablet 06/30/18 [Rx] Aspirin [Halfprin] 1 tab PO DAILY 05/12/19 [History] Calcium Carbonate [Calcium] 600 mg PO DAILY 05/12/19 [History] Cinnamon Bark [Cinnamon] 1,000 mg PO DAILY 05/12/19 [History] Folic Acid 1 mg PO DAILY 05/12/19 [History] Lactobacillus Acidophilus [Probiotic] 1 cap PO DAILY 05/12/19 [History] Magnesium Chloride [Slow-Mag] 71.5 mg PO BID #28 tablet.dr 05/12/19 [Rx] Meclizine [Antivert] 25 mg PO Q8H #15 tablet 05/12/19 [Rx] Red Yeast Rice 600 mg PO DAILY 05/12/19 [History] Vitamin B Complex 1 cap PO DAILY 05/12/19 [History] sitaGLIPtin Phos/Metformin HCl [Janumet 50-1,000 MG] 1 tab PO BID 05/12/19 [ History] traZODone HCl [Trazodone HCl] 100 mg PO BEDTIME 05/12/19 [History] Past Medical History HEENT History: Reports: Allergic Rhinitis, Impaired Vision, Other (See Below) Other HEENT History: has glasses, dentures Cardiovascular History: Reports: High Cholesterol, Hypertension, Other (See Below) Other Cardiovascular History: carotid stenosis Respiratory History: Reports: Pneumonia, Recurrent, Other (See Below) Other Respiratory History: snoring Gastrointestinal History: Reports: Other (See Below) Other Gastrointestinal History: chronic nausea, stomach ulcer Genitourinary History: Reports: Renal Calculus Other Genitourinary History: bilateral kidney tumors, hematuria, frequency, kidney stones, public bone pain PRESALES ENGINEER History: Reports: , Other (See Below) Other PRESALES ENGINEER History: bacterial vaginosis Musculoskeletal History: Reports: Back Pain, Chronic, Neck Pain, Chronic, Osteoarthritis, Osteoporosis Other Musculoskeletal History: right knee pain, muscle spasms, right shoulder pain, dysarthria Neurological History: Reports: Migraines, TIA, Vertigo Psychiatric History: Reports: Anxiety, Depression, Panic Attack, PTSD, Other ( See Below) Other Psychiatric History: insomnia, daytime somnolence Endocrine/Metabolic History: Reports: Diabetes, Type II, Hypothyroidism, Obesity /BMI 30+ Hematologic History: Reports: Blood Transfusion(s) Immunologic History: Reports: None Oncologic (Cancer) History: Reports: None Dermatologic History: Reports: Cellulitis Other Dermatologic History: rash - Past Surgical History Head Surgeries/Procedures: Reports: None HEENT Surgical History: Reports: Adenoidectomy, Oral Surgery, Tonsillectomy Cardiovascular Surgical History: Reports: None Respiratory Surgical History: Reports: None GI Surgical History: Reports: Appendectomy Female Surgical History: Reports: Section, Hysterectomy, Tubal Ligation Endocrine Surgical History: Reports: Thyroidectomy Neurological Surgical History: Reports: None Musculoskeletal Surgical History: Reports: Arthroscopic Knee Oncologic Surgical History: Reports: None Dermatological Surgical History: Reports: None <Rajendra Rehman L - Last Filed: 05/14/19 06:59> Social & Family History - Family History Family Medical History: Noncontributory - Tobacco Use Smoking Status *Q: Current Every Day Smoker Years of Tobacco use: 40 Packs/Tins Daily: 0.5 - Caffeine Use Caffeine Use: Reports: Coffee - Recreational Drug Use Recreational Drug Use: No - Living Situation & Occupation Living situation: Reports: , Alone Occupation: Unemployed <Rajendra Rehman - Last Filed: 05/14/19 06:59> ED ROS GENERAL - Review of Systems Review Of Systems: See Below Constitutional: Reports: No Symptoms HEENT: Reports: Ear Pain, Sinus Problem (congestion), Throat Pain, Vertigo, Other (Headahce with vertigo, tinnitus) Respiratory: Reports: No Symptoms Cardiovascular: Reports: No Symptoms GI/Abdominal: Reports: No Symptoms : Reports: No Symptoms Musculoskeletal: Reports: No Symptoms Skin: Reports: No Symptoms Neurological: Reports: Dizziness, Headache Psychiatric: Reports: Confusion, Other (delusions of people entering her home and leaving white piles of powder around her house) <Derek Damon L - Last Filed: 05/12/19 15:27> - Physical Exam Exam: See Below Exam Limited By: No Limitations General Appearance: Alert, No Apparent Distress Eye Exam: Bilateral Eye: EOMI, Nystagmus (Horizontal nystagmus bilaterally ), PERRL Ears: Normal External Exam, Hearing Grossly Normal, Normal TMs, Other (slightly erythematous external canals with waxy buildup ) Nose: Normal Inspection, Normal Mucosa, No Blood Throat/Mouth: Normal Inspection, Normal Teeth, Normal Oropharynx, Normal Voice, No Airway Compromise Head Exam: Atraumatic, Normocephalic, Sinus Tenderness Respiratory/Chest: No Respiratory Distress, Lungs Clear, Normal Breath Sounds, No Accessory Muscle Use, Chest Non-Tender Cardiovascular: Normal Peripheral Pulses, Regular Rate, Rhythm, No Edema, No Gallop, No JVD, No Murmur, No Rub GI/Abdominal: Normal Bowel Sounds, Soft, Non-Tender, No Distention, No Mass Neuro Exam (Abbreviated): Alert, Oriented, No Motor/Sensory Deficits Extremities: Normal Inspection, Normal Range of Motion, Non-Tender, No Pedal Edema Psychiatric: Normal Mood, Other (Pt reports finding white powder in her house that she thinks people are leaving white powder throughout her house - seem to be very specific delusions ) Skin Exam: Warm, Dry, Intact, Normal Color, No Rash <Derek Damon L - Last Filed: 05/12/19 15:27> Course <Derek Damon L - Last Filed: 05/12/19 15:27> <Rajendra Rehman L - Last Filed: 05/14/19 06:59> - Vital Signs Last Recorded V/S: Last Vital Signs Temp 36.9 C 05/12/19 12:54 Pulse 70 05/12/19 12:54 Resp 20 05/12/19 12:54 BP 147/76 H 05/12/19 12:54 Pulse Ox 96 05/12/19 12:54 - Orders/Labs/Meds Labs: Laboratory Tests 05/12/19 05/12/19 05/12/19 Range/Units 14:44 14:44 15:18 WBC 7.72 (3.98-10.04) K/mm3 RBC 4.78 (3.98-5.22) M/mm3 Hgb 14.5 (11.2-15.7) gm/dl Hct 43.4 (34.1-44.9) % MCV 90.8 (79.4-94.8) fl MCH 30.3 (25.6-32.2) pg MCHC 33.4 (32.2-35.5) g/dl RDW Std Deviation 42.9 (36.4-46.3) fL Plt Count 188 (182-369) K/mm3 MPV 10.3 (9.4-12.3) fl Neut % (Auto) 61.6 (34.0-71.1) % Lymph % (Auto) 27.5 (19.3-51.7) % [place] % (Auto) 7.0 (4.7-12.5) % Eos % (Auto) 3.0 (0.7-5.8) Baso % (Auto) 0.4 (0.1-1.2) % Neut # (Auto) 4.76 (1.56-6.13) K/mm3 Lymph # (Auto) 2.12 (1.18-3.74) K/mm3 [place] # (Auto) 0.54 H (0.24-0.36) K/mm3 Eos # (Auto) 0.23 (0.04-0.36) K/mm3 Baso # (Auto) 0.03 (0.01-0.08) K/mm3 Sodium 143 (136-145) mEq/L Potassium 4.0 (3.5-5.1) mEq/L Chloride 106 (98-107) mEq/L Carbon Dioxide 27 (21-32) mEq/L Anion Gap 14.0 (5-15) BUN 24 H (7-18) mg/dL Creatinine 0.9 (0.55-1.02) mg/dL Est Cr Clr Drug Dosing 55.25 mL/min Estimated GFR (MDRD) > 60 (>60) mL/min BUN/Creatinine Ratio 26.7 H (14-18) Glucose 130 H (80-115) mg/dL Serum Osmolality 304 H (280-300) mosm/kg Calcium 9.7 (8.5-10.1) mg/dL Magnesium 1.4 L (1.8-2.4) mg/dl Total Bilirubin 0.4 (0.2-1.0) mg/dL AST 19 (15-37) U/L ALT 28 (14-59) U/L Alkaline Phosphatase 55 (46-116) U/L C-Reactive Protein 0.2 (<1.0) mg/dL Total Protein 6.7 (6.4-8.2) g/dl Albumin 3.6 (3.4-5.0) g/dl Globulin 3.1 gm/dL Albumin/Globulin Ratio 1.2 (1-2) TSH 3rd Generation 1.500 (0.358-3.74) uIU/mL Urine Color Yellow (Yellow) Urine Appearance Clear (Clear) Urine pH 7.0 (5.0-8.0) Ur Specific [place] 1.025 (1.005-1.030) Urine Protein 1+ H (Negative) Urine Glucose (UA) Negative (Negative) Urine Ketones Negative (Negative) Urine Occult Blood Negative (Negative) Urine Nitrite Negative (Negative) Urine Bilirubin Negative (Negative) Urine Urobilinogen 0.2 (0.2-1.0) Ur Leukocyte Esterase Negative (Negative) Urine RBC Not seen (0-5) /hpf Urine WBC Not seen (0-5) /hpf Ur Squamous Epith Cells 0-5 (0-5) /hpf Urine Bacteria Not seen (FEW) /hpf Urine Mucus Not seen (FEW) /hpf Meds: Medications Discontinued Medications Generic Name Dose Route Start Last Admin Trade Name Freq PRN Reason Stop Dose Admin Benztropine Mesylate 1 mg 05/12/19 14:21 05/12/19 15:02 Cogentin PO 05/12/19 14:22 1 mg ONETIME ONE Administration Haloperidol Lactate 2.5 mg 05/12/19 14:20 05/12/19 15:02 Haldol IVPUSH 05/12/19 14:21 2.5 mg ONETIME ONE Administration Sodium Chloride 1,000 mls @ 750 mls/hr 05/12/19 14:30 05/12/19 15:01 Normal Saline IV 750 mls/hr ASDIRECTED HECTOR Administration Lorazepam 1 mg 05/12/19 14:19 05/12/19 15:03 Ativan IVPUSH 05/12/19 14:20 1 mg ONETIME ONE Administration Metoclopramide HCl 5 mg 05/12/19 14:21 05/12/19 15:01 Reglan IVPUSH 05/12/19 14:22 5 mg ONETIME ONE Administration - Radiology Interpretation Free Text/Narrative:: 63-year-old female presents to the ED with multitude of complaints. History suggest that she is suffering vertiginous vertigo primarily peripheral off-and- on for the last 3 to 4 days. Was very get bad again this morning when she tried to stand up she nearly fell down. She has a mild associated headache. She is complained of some ear pain off and on for the last 2 weeks and some increased tinnitus. Denies any falls or close head injuries. She also mentions that there is white powder spread around her house that evil people are leaving in the home. She therefore appears to have some underlying psychiatric illness with psychoses. She denies any true auditory hallucinations these are more visual hallucinations and/delusions. She is currently on no psychiatric medications. We are going to check and see if she is known to [employer] personnel. I agree with the PA student Derek Damon`s history and physical done on this patient and we came to terms with a definitive treatment plan to treat her significant vertigo symptoms and appropriate treatment plan. (Rajendra Rehman) - Re-Assessments/Exams Free Text/Narrative Re-Assessment/Exam: 05/12/19 15:37 Hematology is back revealing a normal white blood cell count at 7.72. The auto differential shows 61% neutrophils. Hemoglobin is 14.5 with a hematocrit of 43.4. Platelet count is 188,000. Sodium 143 with a potassium of 4.0. Chloride is 106 with a bicarb of 27. Anion gap is 14.0. BUN is slightly elevated at 24 with a creatinine of 0.9. GFR remains greater than 60. Glucose is 130. Calcium is 9.7 magnesium is low at 1.4. Liver function normal C- reactive protein 0.2 total protein 6.7 with an albumin fraction of 3.6. TSH is normal at 1.50. Urinalysis shows 1+ proteinuria but no signs of infection. 05/12/2019: 16:05: CT of the brain reveals the ventricles along with the basal cisterns and sulci over the convexities to be mildly prominent for the patient' s age. Minimal diminished density is noted within portions of the periventricular white matter compatible with minimal small vessel ischemic demyelination changes. No other abnormal parenchymal densities are seen. No evidence of any intracranial hemorrhage or mass-effect identified. Visualized paranasal sinuses show a small retention cyst within the posterior ethmoid measuring approximately 1.0 cm in diameter. No other paranasal sinus findings were identified. 05/12/19 15:58 Patient is markedly improved in terms of vertigo symptoms after treatment with above medications. The only abnormality identified in lab work was hypomagnesemia which will be remedied by Slow-Mag 1 tablet twice daily for the next 2 weeks and then she can have a checked again by her primary care physician. Therefore it is unclear whether or not she is having firm fixed delusions with this white powder in her home or there is an underlying psychiatric illness. [facility] reports that they did see her many years ago but she has never received any medication through their services. It therefore appears that she may be just having intermittent delusional behaviors which she is functioning with. Time she will be discharged on meclizine 25 mg every 8 hours for the next 5 days and then she is to follow-up with her primary care physician in 6 or 7 days. (Rajendra Rehman) Departure <Derek Damon - Last Filed: 05/12/19 15:27> - Departure Time of Disposition: 15:59 Condition: Fair - Discharge Information *PRESCRIPTION DRUG MONITORING PROGRAM REVIEWED*: Not Applicable *COPY OF PRESCRIPTION DRUG MONITORING REPORT IN PATIENT IVETH: Not Applicable <Rajendra Rehman - Last Filed: 05/14/19 06:59> - Departure Disposition: Home, Self-Care 01 Clinical Impression: Hypomagnesemia Benign paroxysmal positional vertigo Qualifiers: Laterality: unspecified laterality Qualified Code(s): H81.10 - Benign paroxysmal vertigo, unspecified ear - Discharge Information Prescriptions: Magnesium Chloride [Slow-Mag] 71.5 mg PO BID #28 tablet.dr Hester [Antivert] 25 mg PO Q8H #15 tablet Instructions: Vertigo, [id number] Referrals: Kate Donald MD [Primary Care Provider] - Forms: ED Department Discharge Additional Instructions: Evaluation in the emergency room today in regards to element of severe vertigo symptoms with the room spinning and associated nausea vomiting. Lab work revealed that you were low and magnesium in your bloodstream but no other abnormalities were appreciated. You were treated with a liter of IV fluids and medication Reglan 5 mg with Haldol 2.5 mg and Ativan 1 mg to bring the vertigo symptoms under control which worked very well. You may find however that you were a little sleepy from these medications for the next 3 to 4 hours. We will need to continue a medication called meclizine 25 mg every 8 hours for the next 5 days to bring vertigo under complete control. The first tablet was provided in the ED today and the next tablet would be due around midnight tonight. We will also need to take a magnesium supplement called Slow-Mag 1 tablet twice daily but not at the same time as her gabapentin for the next 2 weeks to bring your magnesium levels back up to normal. If you are not markedly improved in regards to vertigo symptoms or feeling like you are spinning in the next 6 to 7 days you are to follow-up with your personal care physician to arrange for physiotherapy and Wilbert's maneuvers. Sepsis Event Note - Focused Exam Date Exam was Performed: 05/12/19 Time Exam was Performed: 15:27 <Derek Damon L - Last Filed: 05/12/19 15:27> - Evaluation Sepsis Screening Result: No Definite Risk - Focused Exam Date Exam was Performed: 05/14/19 Time Exam was Performed: 06:57 <Rajendra Rehman L - Last Filed: 05/14/19 06:59>
[2019-05-12] MEDS ORDERED: Sodium Chloride 0.9% 1,000 ML IV SCH (14:30)
--- NOTE | 2019-05-12 14:57 | CT ---
Head CT Technique: Multiple axial sections through the brain were obtained. Intravenous contrast was not utilized. Comparison: Prior head CT study of 07/20/17. Findings: Ventricles along with basal cisterns and sulci over the convexities are mildly prominent. Minimal diminished density is noted within portions of the periventricular white matter compatible with minimal small vessel ischemic demyelination change. No other abnormal parenchymal densities are seen. No evidence of intracranial hemorrhage. No midline shift or mass-effect is seen. Atherosclerotic change is noted within the carotid siphon and within the vertebral vessels. No acute calvarial abnormality is seen. Visualized paranasal sinuses shows a small retention cyst within the posterior ethmoid measuring 1.0 cm. No acute paranasal sinus findings otherwise seen. No acute mastoid sinus findings are seen. Impression: 1. Mild senescent change. Sinus findings believed to be incidental and chronic. 2. Nothing acute is appreciated on noncontrast head CT exam. Diagnostic code #2 This report was dictated in [place] Standard Time
== END 2019-05-12 16:20 | disposition home or self-care (01) ==
LOC: JD.ED 12:31
DX: H81.10 Benign paroxysmal vertigo, unspecified ear (principal); H61.23 Impacted cerumen, bilateral; F17.210 Nicotine dependence, cigarettes, uncomplicated; E11.9 Type 2 diabetes mellitus without complications; E66.9 Obesity, unspecified; E03.9 Hypothyroidism, unspecified; Z68.37 Body mass index [BMI] 37.0-37.9, adult; Z88.5 Allergy status to narcotic agent; Z91.040 Latex allergy status; Z88.0 Allergy status to penicillin; Z86.73 Personal history of transient ischemic attack (TIA), and cerebral infarction without residual deficits
CPT/HCPCS: 36415; 70450; 80053; 81001; 83735; 83930; 84443; 85025; 86140; 93005; 96361; 96374; 96375; 99284; A9270; J1630; J2060; J2765; J7030

== ENCOUNTER 2019-07-02 11:21 | Emergency (ER) | payer MEDICARE ==
[2019-07-02 11:57] VITALS: PULSE 99
[2019-07-02] MEDS ORDERED: Sodium Chloride 0.9% 10 ML Syringe FLUSH PRN (14:03)
[2019-07-02] MEDS ORDERED: Famotidine 20 MG/2 ML SDV IVPUSH ONE (14:07)
[2019-07-02] MEDS ORDERED: Ondansetron 4 MG/2 ML SDV IVPUSH ONE (14:07)
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
[2019-07-02] MEDS ORDERED: Sodium Chloride 0.9% 500 ML IV ONE (14:54)
[2019-07-02] MEDS ORDERED: Ketorolac 30 MG/ML SDV IVPUSH ONE (14:59)
[2019-07-02 15:00] LABS: ACETAMINOPHEN 0 ug/mL (10-30)
[2019-07-02 17:33] VITALS: BP 150/75
== END 2019-07-02 17:20 | disposition home or self-care (01) ==
LOC: JD.ED 11:21
DX: F41.9 Anxiety disorder, unspecified (principal); F32.9 Major depressive disorder, single episode, unspecified; I10 Essential (primary) hypertension; E11.9 Type 2 diabetes mellitus without complications; E03.9 Hypothyroidism, unspecified; F17.210 Nicotine dependence, cigarettes, uncomplicated; E66.9 Obesity, unspecified; M19.90 Unspecified osteoarthritis, unspecified site; Z88.5 Allergy status to narcotic agent; Z91.040 Latex allergy status; Z88.0 Allergy status to penicillin; Z88.8 Allergy status to other drugs, medicaments and biological substances; Z79.82 Long term (current) use of aspirin; Z79.899 Other long term (current) drug therapy; Z86.73 Personal history of transient ischemic attack (TIA), and cerebral infarction without residual deficits
CPT/HCPCS: 36415; 80053; 80306; 80307; 81001; 84443; 85025; 93005; 96374; 96375; 99284; J1885; J2405; J3490; J7030

== ENCOUNTER 2019-09-24 16:32 | Emergency (ER) | payer MEDICARE ==
[2019-09-24 16:47] VITALS: BP 171/85; PULSE 94
[2019-09-24] MEDS ORDERED: Ondansetron 4 MG/2 ML SDV IVPUSH ONE (17:06)
[2019-09-24] MEDS ORDERED: HYDROmorphone 1 MG/ML Syringe IVPUSH STA (17:06)
[2019-09-24] MEDS ORDERED: Tamsulosin 0.4 MG Cap.ER PO STA (17:06)
[2019-09-24] MEDS ORDERED: Sodium Chloride 0.9% 10 ML Syringe FLUSH PRN (17:07)
[2019-09-24] MEDS ORDERED: Ketorolac 30 MG/ML SDV IVPUSH ONE (17:11)
[2019-09-24] MEDS ORDERED: Sodium Chloride 0.9% 1,000 ML IV SCH (17:15)
--- NOTE | 2019-09-24 17:24 | EDM.PDOC ---
<Tyler Rodriguez - Last Filed: 09/24/19 17:08> ED HPI GENERAL MEDICAL PROBLEM - General Chief Complaint: Abdominal Pain Stated Complaint: KIDNEY STONE THAT WILL NOT PASS Time Seen by Provider: 09/24/19 16:54 Source of Information: Reports: Patient History Limitations: Reports: No Limitations - History of Present Illness INITIAL COMMENTS - FREE TEXT/NARRATIVE: Ms. Andrew is a 63 YO female that presents to the ED with a complaint of not being able to pass a kidney stone. She has a history of kidney stones and states that she has about 3-4/yr. She is usually able to pass the stones at home. At today's visit, she complains that a sharp pain began approximately one week ago and was located in her right flank. Pain migrated down to the suprapubic area over a two day course and has been located there since. Associated complaints are pain during urination, increased frequency, sensation of incomplete voiding of urine, and one episode of blood in urine. Denies fever, nausea, vomiting, and decreased appetite. Has not seen urology for this complaint. Onset Date: 09/17/19 Duration: Week(s):, Getting Worse Location: Reports: Pelvis Quality: Reports: Sharp, Stabbing Lower Abdomen Pain Score (Numeric/FACES): 10 - Related Data Allergies Allergy/AdvReac Type Severity Reaction Status Date / Time codeine Allergy Severe Airway Verified 09/24/19 16:48 Tightness fentanyl [From Duragesic] Allergy Severe Airway Verified 09/24/19 16:48 Tightness latex Allergy Severe Rash Verified 09/24/19 16:48 morphine Allergy Severe Hives Verified 09/24/19 16:48 pregabalin [From Lyrica] Allergy Severe Hives Verified 09/24/19 16:48 bupropion [From Wellbutrin] AdvReac Severe Tremors Verified 09/24/19 16:48 Penicillins AdvReac Severe Muscle Verified 09/24/19 16:48 Aches Home Meds: Home Meds Levothyroxine [Synthroid] 50 mcg PO DAILY 09/27/16 [History] Pantoprazole [ProTONIX] 40 mg PO DAILY 09/27/16 [History] tiZANidine HCl [Tizanidine HCl] 4 mg PO Q8H PRN 09/27/16 [History] Cholecalciferol (Vitamin D3) [Vitamin D3] 5,000 unit PO DAILY 06/03/17 [History] Folic Acid 1 mg PO DAILY 06/03/17 [History] Aspirin [Adult Aspirin] 81 mg PO DAILY 04/18/18 [History] Ezetimibe 10 mg PO BEDTIME 04/18/18 [History] Gabapentin [Neurontin] 800 mg PO QID 04/18/18 [History] Triamterene/Hydrochlorothiazid [Dyazide 37.5-25] 1 cap PO DAILY 04/18/18 [History] Oxybutynin Chloride [Oxybutynin Chloride ER] 5 mg PO BEDTIME 04/21/18 [History] Multivitamin with Minerals [Hair, Skin and Nails] 1 tab PO DAILY 06/27/18 [History] Sennosides [Senna] 8.6 mg PO BID PRN tablet 06/30/18 [Rx] Aspirin [Halfprin] 1 tab PO DAILY 05/12/19 [History] Calcium Carbonate [Calcium] 600 mg PO DAILY 05/12/19 [History] Cinnamon Bark [Cinnamon] 1,000 mg PO DAILY 05/12/19 [History] Folic Acid 1 mg PO DAILY 05/12/19 [History] Lactobacillus Acidophilus [Probiotic] 1 cap PO DAILY 05/12/19 [History] Magnesium Chloride [Slow-Mag] 71.5 mg PO BID #28 tablet.dr 05/12/19 [Rx] Meclizine [Antivert] 25 mg PO Q8H #15 tablet 05/12/19 [Rx] Red Yeast Rice 600 mg PO DAILY 05/12/19 [History] Vitamin B Complex 1 cap PO DAILY 05/12/19 [History] sitaGLIPtin Phos/Metformin HCl [Janumet 50-1,000 MG] 1 tab PO BID 05/12/19 [History] QUEtiapine [SEROquel] 25 mg PO BEDTIME #60 tab 07/02/19 [Rx] Past Medical History HEENT History: Reports: Allergic Rhinitis, Impaired Vision, Other (See Below) Other HEENT History: has glasses, dentures Cardiovascular History: Reports: High Cholesterol, Hypertension, Other (See Below) Other Cardiovascular History: carotid stenosis Respiratory History: Reports: Pneumonia, Recurrent Other Respiratory History: snoring Gastrointestinal History: Reports: Other (See Below) Other Gastrointestinal History: chronic nausea, stomach ulcer Genitourinary History: Reports: Renal Calculus Other Genitourinary History: bilateral kidney tumors, hematuria, frequency, kidney stones, public bone pain 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: , Other (See Below) 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[employer] 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 History: bacterial vaginosis Musculoskeletal History: Reports: Back Pain, Chronic, Neck Pain, Chronic, Osteoarthritis, Osteoporosis, RA Other Musculoskeletal History: right knee pain, muscle spasms, right shoulder pain, dysarthria Neurological History: Reports: Migraines, TIA, Vertigo Psychiatric History: Reports: Anxiety, Depression, Panic Attack, PTSD, Other (See Below) Other Psychiatric History: insomnia, daytime somnolence Endocrine/Metabolic History: Reports: Diabetes, Type II, Hypothyroidism, Obesity/BMI 30+ Hematologic History: Reports: Blood Transfusion(s) Dermatologic History: Reports: Cellulitis Other Dermatologic History: rash - Past Surgical History HEENT Surgical History: Reports: Adenoidectomy, Oral Surgery, Tonsillectomy GI Surgical History: Reports: Appendectomy Female Surgical History: Reports: Section, Hysterectomy, Tubal Ligation Endocrine Surgical History: Reports: Thyroidectomy Musculoskeletal Surgical History: Reports: Arthroscopic Knee Social & Family History - Family History Family Medical History: Noncontributory - Tobacco Use Smoking Status *Q: Current Every Day Smoker Years of Tobacco use: 43 Packs/Tins Daily: 0.5 - Caffeine Use Caffeine Use: Reports: Coffee - Recreational Drug Use Recreational Drug Use: No - Living Situation & Occupation Living situation: Reports: , Alone Occupation: Unemployed ED ROS GENERAL - Review of Systems Review Of Systems: See Below Constitutional: Denies: Fever, Decreased Appetite GI/Abdominal: Denies: Abdominal Pain, Decreased Appetite, Nausea, Vomiting : Reports: Dysuria, Flank Pain, Frequency, Urinary Retention ED EXAM, RENAL/ - Physical Exam Exam: See Below General Appearance: Alert, No Apparent Distress Head: Atraumatic, Normocephalic Respiratory/Chest: No Respiratory Distress, Lungs Clear, Normal Breath Sounds, No Accessory Muscle Use Cardiovascular: Regular Rate, Rhythm, No Gallop, No Murmur, No Rub GI/Abdominal: Normal Bowel Sounds, Soft, Non-Tender, No Distention Back Exam: CVA Tenderness (L), CVA Tenderness (R) Neurological: Oriented Skin Exam: Warm, Dry, Normal Color Departure - Departure Disposition: DC/Tfer to [facility] 02 Clinical Impression: Urinary tract obstruction due to kidney stone - Discharge Information Referrals: Kate Donald MD [Primary Care Provider] - Forms: ED Department Discharge Sepsis Event Note (ED) - Evaluation Sepsis Screening Result: No Definite Risk <Patt Casarez - Last Filed: 09/24/19 20:34> Course - Vital Signs Last Recorded V/S: Last Vital Signs Temp 98.3 F 09/24/19 16:44 Pulse 94 09/24/19 16:44 Resp 16 09/24/19 16:44 BP 171/85 H 09/24/19 16:44 Pulse Ox 97 09/24/19 16:44 - Orders/Labs/Meds Orders: Active Orders 24 hr Category Date Time Status Peripheral IV Care [RC] . DIRECTED Care 09/24/19 17:07 Active Strain Urine [RC] ASDIRECTED Care 09/24/19 17:07 Active Abdomen Pelvis wo Cont [CT] Stat Exams 09/24/19 17:07 Taken CULTURE URINE [RM] Routine Lab 09/24/19 17:00 Received Sodium Chloride 0.9% [Normal Saline] 1,000 ml Med 09/24/19 17:15 Active IV ASDIRECTED Sodium Chloride 0.9% [Saline Flush] Med 09/24/19 17:07 Active 10 ml FLUSH ASDIRECTED PRN Peripheral IV Insertion Adult [OM.PC] Stat Oth 09/24/19 17:07 Ordered Medication Orders Sodium Chloride (Normal Saline) 1,000 mls @ 150 mls/hr IV ASDIRECTED HECTOR Last Admin: 09/24/19 17:23 Dose: 150 mls/hr Documented by: URSULA Sodium Chloride (Saline Flush) 10 ml FLUSH ASDIRECTED PRN PRN Reason: Keep Vein Open Last Admin: 09/24/19 17:23 Dose: 10 ml Documented by: URSULA Labs: Laboratory Tests 09/24/19 09/24/19 09/24/19 Range/Units 17:20 17:20 17:20 WBC 7.20 (3.98-10.04) K/mm3 RBC 4.64 (3.98-5.22) M/mm3 Hgb 13.9 (11.2-15.7) gm/dl Hct 41.0 (34.1-44.9) % MCV 88.4 (79.4-94.8) fl MCH 30.0 (25.6-32.2) pg MCHC 33.9 (32.2-35.5) g/dl RDW Std Deviation 40.9 (36.4-46.3) fL Plt Count 148 L D (182-369) K/mm3 MPV 10.9 (9.4-12.3) fl Neut % (Auto) 74.5 H (34.0-71.1) % Lymph % (Auto) 13.6 L (19.3-51.7) % [place] % (Auto) 7.9 (4.7-12.5) % Eos % (Auto) 3.1 (0.7-5.8) Baso % (Auto) 0.6 (0.1-1.2) % Neut # (Auto) 5.37 (1.56-6.13) K/mm3 Lymph # (Auto) 0.98 L (1.18-3.74) K/mm3 [place] # (Auto) 0.57 H (0.24-0.36) K/mm3 Eos # (Auto) 0.22 (0.04-0.36) K/mm3 Baso # (Auto) 0.04 (0.01-0.08) K/mm3 Sodium 136 (136-145) mEq/L Potassium 4.3 (3.5-5.1) mEq/L Chloride 100 (98-107) mEq/L Carbon Dioxide 27 (21-32) mEq/L Anion Gap 13.3 (5-15) BUN 23 H (7-18) mg/dL Creatinine 1.2 H (0.55-1.02) mg/dL Est Cr Clr Drug Dosing 41.44 mL/min Estimated GFR (MDRD) 45 (>60) mL/min BUN/Creatinine Ratio 19.2 H (14-18) Glucose 509 H (80-115) mg/dL Calcium 9.3 (8.5-10.1) mg/dL Total Bilirubin 0.4 (0.2-1.0) mg/dL AST 21 (15-37) U/L ALT 36 (14-59) U/L Alkaline Phosphatase 93 (46-116) U/L C-Reactive Protein 8.4 H* (<1.0) mg/dL Total Protein 6.5 (6.4-8.2) g/dl Albumin 3.1 L (3.4-5.0) g/dl Globulin 3.4 gm/dL Albumin/Globulin Ratio 0.9 L (1-2) Urine Color Yellow (Yellow) Urine Appearance Slt cloudy H (Clear) Urine pH 6.5 (5.0-8.0) Ur Specific [place] 1.020 (1.005-1.030) Urine Protein 1+ H (Negative) Urine Glucose (UA) 2+ H (Negative) Urine Ketones 1+ H (Negative) Urine Occult Blood 2+ H (Negative) Urine Nitrite Negative (Negative) Urine Bilirubin Negative (Negative) Urine Urobilinogen 0.2 (0.2-1.0) Ur Leukocyte Esterase Trace H (Negative) Urine RBC 20-30 H (0-5) /hpf Urine WBC 30-40 H (0-5) /hpf Ur Squamous Epith Cells 0-5 (0-5) /hpf Amorphous Sediment Moderate H (NOT SEEN) /hpf Urine Bacteria Few (FEW) /hpf Urine Mucus Not seen (FEW) /hpf COVID-19 (ROBERT) (NEGATIVE) 09/24/19 Range/Units 20:06 WBC (3.98-10.04) K/mm3 RBC (3.98-5.22) M/mm3 Hgb (11.2-15.7) gm/dl Hct (34.1-44.9) % MCV (79.4-94.8) fl MCH (25.6-32.2) pg MCHC (32.2-35.5) g/dl RDW Std Deviation (36.4-46.3) fL Plt Count (182-369) K/mm3 MPV (9.4-12.3) fl Neut % (Auto) (34.0-71.1) % Lymph % (Auto) (19.3-51.7) % [place] % (Auto) (4.7-12.5) % Eos % (Auto) (0.7-5.8) Baso % (Auto) (0.1-1.2) % Neut # (Auto) (1.56-6.13) K/mm3 Lymph # (Auto) (1.18-3.74) K/mm3 [place] # (Auto) (0.24-0.36) K/mm3 Eos # (Auto) (0.04-0.36) K/mm3 Baso # (Auto) (0.01-0.08) K/mm3 Sodium (136-145) mEq/L Potassium (3.5-5.1) mEq/L Chloride (98-107) mEq/L Carbon Dioxide (21-32) mEq/L Anion Gap (5-15) BUN (7-18) mg/dL Creatinine (0.55-1.02) mg/dL Est Cr Clr Drug Dosing mL/min Estimated GFR (MDRD) (>60) mL/min BUN/Creatinine Ratio (14-18) Glucose (80-115) mg/dL Calcium (8.5-10.1) mg/dL Total Bilirubin (0.2-1.0) mg/dL AST (15-37) U/L ALT (14-59) U/L Alkaline Phosphatase (46-116) U/L C-Reactive Protein (<1.0) mg/dL Total Protein (6.4-8.2) g/dl Albumin (3.4-5.0) g/dl Globulin gm/dL Albumin/Globulin Ratio (1-2) Urine Color (Yellow) Urine Appearance (Clear) Urine pH (5.0-8.0) Ur Specific [place] (1.005-1.030) Urine Protein (Negative) Urine Glucose (UA) (Negative) Urine Ketones (Negative) Urine Occult Blood (Negative) Urine Nitrite (Negative) Urine Bilirubin (Negative) Urine Urobilinogen (0.2-1.0) Ur Leukocyte Esterase (Negative) Urine RBC (0-5) /hpf Urine WBC (0-5) /hpf Ur Squamous Epith Cells (0-5) /hpf Amorphous Sediment (NOT SEEN) /hpf Urine Bacteria (FEW) /hpf Urine Mucus (FEW) /hpf COVID-19 (ROBERT) Negative (NEGATIVE) Meds: Medications Generic Name Dose Route Start Last Admin Trade Name Freq PRN Reason Stop Dose Admin Sodium Chloride 1,000 mls @ 150 mls/hr 09/24/19 17:15 09/24/19 17:23 Normal Saline IV 150 mls/hr ASDIRECTED HECTOR Administration Sodium Chloride 10 ml 09/24/19 17:07 09/24/19 17:23 Saline Flush FLUSH 10 ml ASDIRECTED PRN Administration Keep Vein Open Discontinued Medications Generic Name Dose Route Start Last Admin Trade Name Myah PRN Reason Stop Dose Admin Hydromorphone HCl 1 mg 09/24/19 17:06 09/24/19 17:23 Dilaudid IVPUSH 09/24/19 17:07 1 mg ONETIME STA Administration Ceftriaxone Sodium 2 gm/ 100 mls @ 200 mls/hr 09/24/19 18:59 09/24/19 19:14 Sodium Chloride IV 09/24/19 19:28 200 mls/hr ONETIME ONE Administration Insulin Human Regular 12 unit 09/25/19 19:42 Humulin R SUBCUT 09/25/19 19:43 ONETIME ONE Insulin Human Regular 12 unit 09/24/19 19:42 09/24/19 20:08 Humulin R SUBCUT 09/24/19 19:43 12 unit ONETIME ONE Administration Ketorolac Tromethamine 30 mg 09/24/19 17:11 09/24/19 17:33 Toradol IVPUSH 09/24/19 17:12 30 mg ONETIME ONE Administration Ondansetron HCl 4 mg 09/24/19 17:06 09/24/19 17:24 Zofran IVPUSH 09/24/19 17:07 4 mg ONETIME ONE Administration Tamsulosin HCl 0.4 mg 09/24/19 17:06 09/24/19 17:23 Flomax PO 09/24/19 17:07 0.4 mg ONETIME STA Administration - Re-Assessments/Exams Free Text/Narrative Re-Assessment/Exam: 09/24/19 17:30 I have read and reviewed the student's HPI and examined the patient and agree with LUCÍA Black-student. Have ordered noncontrast CT for evaluation of the kidney stone, along with IV fluids, IV medications, tamsulosin, and a urinalysis. 09/24/19 18:53 Patient's urinalysis has returned, and is remarkable for UTI. Will start on Omn[employer] for outpatient therapy. CT read is still pending at this time. 09/24/19 19:11 I was able to get a hold of MARTHA Watson in [place] and Dr. Sousa requests that we get lab work, to include a CBC, CMP, and a CRP, he notes if there is any sort of leukocytosis or increased creatinine or CRP, she could likely benefit from a transfer to [place] for more urgent management, otherwise if labs are okay, she can follow-up with his office tomorrow morning, he also would like Flomax to be started on her on a daily basis. The patient's CT did demonstrate a left distal ureteral obstructing stone, measuring 5 mm, but no other ureteral stones were appreciated. There are several nonobstructing right renal calculi. 09/24/19 20:00 Was Able to talk with Dr. Sousa, and he does request that the patient be transferred to their facility for urgent management in the morning, he is worried because of the elevated CRP that the patient might decline sooner rather than later. We will perform a rapid COVID screen to rule her out, however I do suspect this to be negative as she is asymptomatic. Patient will be transferred by private vehicle to [place]. 09/24/19 20:33 COVID screen is negative at today's visit. MARTHA Watson was made aware of these findings. Departure - Departure Time of Disposition: 20:01 Condition: Good - Discharge Information *PRESCRIPTION DRUG MONITORING PROGRAM REVIEWED*: No *COPY OF PRESCRIPTION DRUG MONITORING REPORT IN PATIENT IVETH: No Sepsis Event Note (ED) - Focused Exam Vital Signs: Vital Signs Temp Pulse Resp BP Pulse Ox 09/24/19 16:44 98.3 F 94 16 171/85 H 97 - My Orders Last 24 Hours: My Active Orders 09/24/19 17:00 CULTURE URINE [RM] Routine 09/24/19 17:07 Peripheral IV Care [RC] . DIRECTED Strain Urine [RC] ASDIRECTED Abdomen Pelvis wo Cont [CT] Stat Sodium Chloride 0.9% [Saline Flush] 10 ml FLUSH ASDIRECTED PRN Peripheral IV Insertion Adult [OM.PC] Stat 09/24/19 17:15 Sodium Chloride 0.9% [Normal Saline] 1,000 ml IV ASDIRECTED - Assessment/Plan Last 24 Hours: My Active Orders 09/24/19 17:00 CULTURE URINE [RM] Routine 09/24/19 17:07 Peripheral IV Care [RC] . DIRECTED Strain Urine [RC] ASDIRECTED Abdomen Pelvis wo Cont [CT] Stat Sodium Chloride 0.9% [Saline Flush] 10 ml FLUSH ASDIRECTED PRN Peripheral IV Insertion Adult [OM.PC] Stat 09/24/19 17:15 Sodium Chloride 0.9% [Normal Saline] 1,000 ml IV ASDIRECTED
[2019-09-24] MEDS ORDERED: cefTRIAXone 2 GM in Sodium Chloride 0.9% 100 ML IV ONE (18:59)
[2019-09-24] MEDS ORDERED: Insulin Regular, Human 100 Units/ML 3 ML Vial SUBCUT ONE (19:42)
--- NOTE | 2019-09-25 09:20 | CT ---
CT abdomen and pelvis Technique: Multiple axial sections were obtained from above the dome of the diaphragm inferiorly through the pubic symphysis. Intravenous and oral contrast not utilized. Study has been performed as a ureteral stone protocol. Findings: Left ureter is mildly prominent in size. Slight inflammatory change is also noted around the left ureter. These findings are caused by a distal obstructing stone within the left ureter measuring approximately 5.5 mm in size. This stone occurs about 4 cm proximal to the UVJ. No other abnormal calcifications are seen along the course of the ureters. Small nonobstructing calculi are noted within the right kidney. Slightly hyperdense abnormality within the left kidney is seen which I believe represents a minimal hemorrhagic cyst. Other findings: Visualized lung bases show nothing acute. Cysts are noted within the liver. These cysts are seen within both right and left lobes. Largest cyst measures 3.5 cm in size. Spleen appears within normal limits. Adrenal glands show no nodule. Pancreas is within normal limits. Gallbladder contains no calcified gallstones. Aorta shows atherosclerotic calcification which continues into the iliac vessels. No aneurysm is seen. No retroperitoneal adenopathy or mesenteric abnormalities are appreciated. Appendix is visualized with certainty. No pelvic mass or adenopathy is seen. Slight increased stool is noted within the colon. Bone window settings were reviewed which shows scattered degenerative change within the spine. Impression: 1. 5.5 mm obstructing stone within the distal left ureter. 2. Small nonobstructing calculi within the right kidney. Probable hemorrhagic small cyst within the left kidney. 3. Other findings which appear nonacute as described above. Diagnostic code #3 This report was dictated in MDT I agree with preliminary report from [facility], finalized on 09/24/19, 7:25 PM Central Daylight Time
[2019-09-25] MEDS ORDERED: Insulin Regular, Human 100 Units/ML 3 ML Vial SUBCUT ONE (19:42)
== END 2019-09-24 20:20 ==
LOC: JD.ED 16:32
DX: N13.9 Obstructive and reflux uropathy, unspecified (principal); N20.2 Calculus of kidney with calculus of ureter; E11.9 Type 2 diabetes mellitus without complications; E03.9 Hypothyroidism, unspecified; E66.9 Obesity, unspecified; F41.9 Anxiety disorder, unspecified; F32.9 Major depressive disorder, single episode, unspecified; I10 Essential (primary) hypertension; M19.90 Unspecified osteoarthritis, unspecified site; Z88.5 Allergy status to narcotic agent; Z88.4 Allergy status to anesthetic agent; Z91.040 Latex allergy status; Z88.8 Allergy status to other drugs, medicaments and biological substances; Z88.0 Allergy status to penicillin; Z79.82 Long term (current) use of aspirin; Z79.899 Other long term (current) drug therapy; Z79.84 Long term (current) use of oral hypoglycemic drugs; Z86.73 Personal history of transient ischemic attack (TIA), and cerebral infarction without residual deficits; Z20.828 Contact with and (suspected) exposure to other viral communicable diseases
CPT/HCPCS: 36415; 74176; 80053; 81001; 85025; 86140; 87086; 87088; 87186; 96361; 96365; 96375; 99285; A9270; J0696; J1170; J1815; J1885; J2405; J7030; J7050; U0002; 99284

== ENCOUNTER 2020-06-27 08:20 | Emergency (ER) | payer MEDICARE ==
[2020-06-27 08:33] VITALS: BP 160/78; PULSE 94
--- NOTE | 2020-06-27 09:17 | EDM.PDOC ---
ED HPI GENERAL MEDICAL PROBLEM - General Chief Complaint: Gastrointestinal Problem Stated Complaint: UNABLE TO EAT/DIARRHEA Time Seen by Provider: 06/27/20 09:17 - History of Present Illness INITIAL COMMENTS - FREE TEXT/NARRATIVE: 64-year-old female presents the emergency room with abdominal discomfort nausea and diarrhea. The diarrhea seems to be the big problem. This is been going on well over a week not quite 2 weeks. She has diarrhea every time she tries to eat she will have 5 or 6 episodes of watery stools everything passes right through her. However she thinks she can keep Gatorade down. She has had days where she has had more than 20 BMs daily. The patient is feeling weak and tired has dizziness when she stands up. She is not aware of any fevers or chills she cannot recall the last time she was on antibiotics. The diarrhea is described as watery nonbloody. The patient does not believe the Gatorade triggers the diarrhea however anything else she tries to eat makes it immediately worse.. Patient has tried Pepto-Bismol and some antidiarrheal medication without any success. - Related Data Allergies Allergy/AdvReac Type Severity Reaction Status Date / Time codeine Allergy Severe Airway Verified 06/27/20 08:33 Tightness fentanyl [From Duragesic] Allergy Severe Airway Verified 06/27/20 08:33 Tightness latex Allergy Severe Rash Verified 06/27/20 08:33 morphine Allergy Severe Hives Verified 06/27/20 08:33 pregabalin [From Lyrica] Allergy Severe Hives Verified 06/27/20 08:33 bupropion [From Wellbutrin] AdvReac Severe Tremors Verified 06/27/20 08:33 Penicillins AdvReac Severe Muscle Verified 06/27/20 08:33 Aches Home Meds: Home Meds Levothyroxine [Synthroid] 50 mcg PO DAILY 09/27/16 [History] Pantoprazole [ProTONIX] 40 mg PO DAILY 09/27/16 [History] tiZANidine HCl [Tizanidine HCl] 4 mg PO TID 09/27/16 [History] Cholecalciferol (Vitamin D3) [Vitamin D3] 5,000 unit PO DAILY 06/03/17 [History] Ezetimibe 10 mg PO BEDTIME 04/18/18 [History] Gabapentin [Neurontin] 800 mg PO QID 04/18/18 [History] Triamterene/Hydrochlorothiazid [Dyazide 37.5-25] 1 cap PO DAILY 04/18/18 [History] Oxybutynin Chloride [Oxybutynin Chloride ER] 5 mg PO BEDTIME 04/21/18 [History] Multivitamin with Minerals [Hair, Skin and Nails] 1 tab PO DAILY 06/27/18 [History] Aspirin [Halfprin] 1 tab PO DAILY 05/12/19 [History] Calcium Carbonate [Calcium] 600 mg PO DAILY 05/12/19 [History] Cinnamon Bark [Cinnamon] 1,000 mg PO DAILY 05/12/19 [History] Folic Acid 1 mg PO DAILY 05/12/19 [History] Lactobacillus Acidophilus [Probiotic] 1 cap PO DAILY 05/12/19 [History] Red Yeast Rice 600 mg PO DAILY 05/12/19 [History] Vitamin B Complex 1 cap PO DAILY 05/12/19 [History] sitaGLIPtin Phos/Metformin HCl [Janumet 50-1,000 MG] 50 mg PO BID 05/12/19 [History] ClonazePAM [KlonoPIN] 0.5 mg PO QID 06/27/20 [History] Ondansetron [Zofran ODT] 4 mg PO Q6H PRN #12 tab.dis 06/27/20 [Rx] Past Medical History HEENT History: Reports: Allergic Rhinitis, Impaired Vision, Other (See Below) Other HEENT History: has glasses, dentures Cardiovascular History: Reports: High Cholesterol, Hypertension, Other (See Below) Other Cardiovascular History: carotid stenosis Respiratory History: Reports: Pneumonia, Recurrent Other Respiratory History: snoring Gastrointestinal History: Reports: Other (See Below) Other Gastrointestinal History: chronic nausea, stomach ulcer Genitourinary History: Reports: Renal Calculus Other Genitourinary History: bilateral kidney tumors, hematuria, frequency, kidney stones, public bone pain 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: Reports: , Other (See Below) Other 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: bacterial vaginosis Musculoskeletal History: Reports: Back Pain, Chronic, Neck Pain, Chronic, Osteoarthritis, Osteoporosis, RA Other Musculoskeletal History: right knee pain, muscle spasms, right shoulder pain, dysarthria Neurological History: Reports: Migraines, TIA, Vertigo Psychiatric History: Reports: Anxiety, Depression, Panic Attack, PTSD, Other (See Below) Other Psychiatric History: insomnia, daytime somnolence Endocrine/Metabolic History: Reports: Diabetes, Type II, Hypothyroidism, Obesity/BMI 30+ Hematologic History: Reports: Blood Transfusion(s) Immunologic History: Reports: None Oncologic (Cancer) History: Reports: None Dermatologic History: Reports: Cellulitis Other Dermatologic History: rash - Past Surgical History Head Surgeries/Procedures: Reports: None HEENT Surgical History: Reports: Adenoidectomy, Oral Surgery, Tonsillectomy Cardiovascular Surgical History: Reports: None Respiratory Surgical History: Reports: None GI Surgical History: Reports: Appendectomy Female Surgical History: Reports: Section, Hysterectomy, Tubal Ligation Endocrine Surgical History: Reports: Thyroidectomy Neurological Surgical History: Reports: None Musculoskeletal Surgical History: Reports: Arthroscopic Knee Oncologic Surgical History: Reports: None Dermatological Surgical History: Reports: None Social & Family History - Family History Family Medical History: No Pertinent Family History - Tobacco Use Tobacco Use Status *Q: Current Every Day Tobacco User Years of Tobacco use: 40 Packs/Tins Daily: 0.5 - Caffeine Use Caffeine Use: Reports: Coffee - Recreational Drug Use Recreational Drug Use: Yes Recreational Drug Type: Reports: Marijuana/Hashish Recreational Drug Use Frequency: Daily - Living Situation & Occupation Living situation: Reports: , Alone Occupation: Unemployed ED ROS GENERAL - Review of Systems Review Of Systems: See Below Constitutional: Reports: Malaise, Weakness, Fatigue. Denies: Fever, Chills HEENT: Reports: No Symptoms Respiratory: Reports: No Symptoms Cardiovascular: Reports: No Symptoms Endocrine: Reports: No Symptoms GI/Abdominal: Reports: Abdominal Pain, Diarrhea, Nausea. Denies: Black Stool, Bloody Stool, Constipation, Vomiting : Reports: No Symptoms Musculoskeletal: Reports: Other (She is achy all over has fibromyalgia and arthritis) Skin: Reports: No Symptoms Neurological: Reports: No Symptoms ED EXAM, GI/ABD - Physical Exam Exam: See Below Exam Limited By: No Limitations General Appearance: Alert, No Apparent Distress Head: Atraumatic, Normocephalic Neck: Normal Inspection, Supple, Non-Tender, Full Range of Motion Respiratory/Chest: No Respiratory Distress, Lungs Clear, Normal Breath Sounds Cardiovascular: Regular Rate, Rhythm, No Edema, No Murmur GI/Abdominal Exam: Normal Bowel Sounds, Soft, Non-Tender, Other (When her pain comes she describes it more as a crampy sensation) Back Exam: Normal Inspection. No: CVA Tenderness (L), CVA Tenderness (R) Extremities: Normal Inspection, No Pedal Edema Neurological: Alert, Oriented, Normal Cognition Course - Vital Signs Last Recorded V/S: Last Vital Signs Temp 36.8 C 06/27/20 08:31 Pulse 94 06/27/20 08:31 Resp 16 06/27/20 08:31 BP 160/78 H 06/27/20 08:31 Pulse Ox 99 06/27/20 08:31 - Orders/Labs/Meds Orders: Active Orders 24 hr Category Date Time Status C DIFFICILE PCR W/REFLEX [MOLEC] Stat Lab 06/27/20 09:26 Ordered STL CULT SHIGA TOX CAMPY AG [MREF] Stat Lab 06/27/20 09:23 Ordered UA RFX RUSS AND CULT IF INDIC [URIN] Stat Lab 06/27/20 11:48 Ordered Labs: Laboratory Tests 06/27/20 06/27/20 Range/Units 09:38 09:38 WBC 8.33 (3.98-10.04) K/mm3 RBC 4.89 (3.98-5.22) M/mm3 Hgb 14.8 (11.2-15.7) gm/dl Hct 43.8 (34.1-44.9) % MCV 89.6 (79.4-94.8) fl MCH 30.3 (25.6-32.2) pg MCHC 33.8 (32.2-35.5) g/dl RDW Std Deviation 43.3 (36.4-46.3) fL Plt Count 192 (182-369) K/mm3 MPV 10.1 (9.4-12.3) fl Neut % (Auto) 79.4 H (34.0-71.1) % Lymph % (Auto) 12.4 L (19.3-51.7) % Sandoval % (Auto) 6.0 (4.7-12.5) % Eos % (Auto) 1.4 (0.7-5.8) Baso % (Auto) 0.4 (0.1-1.2) % Neut # (Auto) 6.62 H (1.56-6.13) K/mm3 Lymph # (Auto) 1.03 L (1.18-3.74) K/mm3 Sandoval # (Auto) 0.50 H (0.24-0.36) K/mm3 Eos # (Auto) 0.12 (0.04-0.36) K/mm3 Baso # (Auto) 0.03 (0.01-0.08) K/mm3 Sodium 144 (136-145) mEq/L Potassium 3.5 (3.5-5.1) mEq/L Chloride 106 (98-107) mEq/L Carbon Dioxide 25 (21-32) mEq/L Anion Gap 16.5 H (5-15) BUN 16 (7-18) mg/dL Creatinine 0.8 (0.55-1.02) mg/dL Est Cr Clr Drug Dosing 63.93 mL/min Estimated GFR (MDRD) > 60 (>60) mL/min BUN/Creatinine Ratio 20.0 H (14-18) Glucose 104 (80-115) mg/dL Calcium 8.9 (8.5-10.1) mg/dL Magnesium 1.4 L (1.8-2.4) mg/dl Total Bilirubin 0.5 (0.2-1.0) mg/dL AST 18 (15-37) U/L ALT 24 (14-59) U/L Alkaline Phosphatase 46 (46-116) U/L Total Protein 6.4 (6.4-8.2) g/dl Albumin 3.3 L (3.4-5.0) g/dl Globulin 3.1 gm/dL Albumin/Globulin Ratio 1.1 (1-2) Meds: Medications Discontinued Medications Generic Name Dose Route Start Last Admin Trade Name Robbieq PRN Reason Stop Dose Admin Lactated Ringer's 1,000 mls @ 999 mls/hr 06/27/20 09:27 06/27/20 09:37 Ringers, Lactated IV 06/27/20 10:27 999 mls/hr .BOLUS ONE Administration Ondansetron HCl 4 mg 06/27/20 09:27 06/27/20 09:37 Ondansetron 4 Mg/2 Ml Sdv IVPUSH 06/27/20 09:28 4 mg ONETIME ONE Administration - Re-Assessments/Exams Free Text/Narrative Re-Assessment/Exam: 06/27/20 12:33 Patient feels better after getting some fluid and some Zofran we have been unable to get a stool specimen on her we will have her collect this as an outpatient then bring it back in. She will follow up with the regular provider in a couple days in the clinic Departure - Departure Time of Disposition: 12:33 Disposition: Home, Self-Care 01 Clinical Impression: Diarrhea, Mild dehydration - Discharge Information Referrals: Theresa Duarte, ROBOTICS SOFTWARE ENGINEER [Primary Care Provider] - Forms: ED Department Discharge Additional Instructions: Return to the emergency room with any questions problems or worsening symptoms. Return with any stool specimen as quickly as you can. Push lots of fluids mostly Gatorade diet as tolerated. occupational therapy co director some probiotics get the highest colony count you can find and take as directed. I sent a prescription for Zofran, an antinausea medication to [facility] pharmacy near [facility]. Follow-up in the clinic in 2 days for recheck. Sepsis Event Note (ED) - Evaluation Sepsis Screening Result: No Definite Risk - Focused Exam Vital Signs: Vital Signs Temp Pulse Resp BP Pulse Ox 06/27/20 08:31 36.8 C 94 16 160/78 H 99 - My Orders Last 24 Hours: My Active Orders 06/27/20 09:23 STL CULT SHIGA TOX CAMPY AG [MREF] Stat 06/27/20 09:26 C DIFFICILE PCR W/REFLEX [MOLEC] Stat 06/27/20 11:48 UA RFX RUSS AND CULT IF INDIC [URIN] Stat - Assessment/Plan Last 24 Hours: My Active Orders 06/27/20 09:23 STL CULT SHIGA TOX CAMPY AG [MREF] Stat 06/27/20 09:26 C DIFFICILE PCR W/REFLEX [MOLEC] Stat 06/27/20 11:48 UA RFX RUSS AND CULT IF INDIC [URIN] Stat
[2020-06-27] MEDS ORDERED: Lactated Ringers 1,000 ML IV ONE (09:27)
[2020-06-27] MEDS ORDERED: Ondansetron 4 MG/2 ML SDV IVPUSH ONE (09:27)
== END 2020-06-27 12:54 | disposition home or self-care (01) ==
LOC: JD.ED 08:20
DX: E86.0 Dehydration (principal); R19.7 Diarrhea, unspecified; E11.9 Type 2 diabetes mellitus without complications; E03.9 Hypothyroidism, unspecified; E78.00 Pure hypercholesterolemia, unspecified; I10 Essential (primary) hypertension; E66.9 Obesity, unspecified; Z90.49 Acquired absence of other specified parts of digestive tract; Z72.0 Tobacco use; Z90.710 Acquired absence of both cervix and uterus; Z79.82 Long term (current) use of aspirin; Z79.899 Other long term (current) drug therapy; Z88.0 Allergy status to penicillin; Z88.8 Allergy status to other drugs, medicaments and biological substances; Z88.5 Allergy status to narcotic agent; Z91.040 Latex allergy status; Z88.6 Allergy status to analgesic agent; Z68.30 Body mass index [BMI] 30.0-30.9, adult
CPT/HCPCS: 36415; 80053; 81001; 83735; 85025; 87045; 87046; 87449; 87493; 87899; 96374; 99284; J2405; J7120; 99283

== ENCOUNTER 2020-07-07 08:00 | Day surgery (SDC) | payer MEDICARE ==
[~2020-07-07 08:00] MED LIST changes: -Bupivacaine 0.75% 30 ML SDV ONE; -Ketamine 500 mg/10 ML MDV ONE; -Lactated Ringers 0 ML ONE; -Lidocaine 1% 0 ML ONE; -Midazolam 1 MG/ML 2 ML SDV ONE; -Propofol 200 MG/20 ML SDV ONE; -ceFAZolin 1 GM Vial ONE; -fentaNYL 100 MCG/2 ML SDV ONE
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
[2020-07-07] MEDS ORDERED: Propofol 200 MG/20 ML SDV ONE (09:28)
[2020-07-07] MEDS ORDERED: fentaNYL 100 MCG/2 ML SDV ONE (09:28)
[2020-07-07] MEDS ORDERED: Ketamine 500 mg/10 ML MDV ONE (09:28)
[2020-07-07] MEDS ORDERED: Lidocaine 1% 6 ML ONE (09:28)
--- NOTE | 2020-07-07 09:34 | PCM.PRNOTE ---
- Free Text/Narrative Note: Date: 07/07/2020 Procedure: diagnostic esophagogastroduodenoscopy Indication: epigastric pain, bloating Endoscopist: Jesus Rg MD Findings: no abnormal findings. Detailed Report: The patient was taken to the endoscopy suite and placed in left lateral decubitus position. Timeout was performed and monitored anesthesia care was initiated. A bite-block was placed and the endoscope was inserted into the mouth. The scope was advanced to the midportion of the duodenum with ease. Duodenal mucosa appeared grossly normal. Sample biopsies were obtained with cold forceps of duodenal mucosa in the second portion as well as mucosa from the duodenal bulb. Scope was withdrawn into the stomach. Samples were taken of antral mucosa and of the mid body of the stomach. On retroflexion, there was no hiatal hernia appreciated. The scope was withdrawn into the distal esophagus. The Z-line appeared normal. A biopsy of distal esophageal mucosa was obtained. Air was suctioned from the stomach and esophagus prior to withdrawal of the scope. The remainder of the esophagus appeared normal. The patient tolerated the procedure well.
--- NOTE | 2020-07-07 09:41 | PCM48HPAN ---
Post Anesthesia Note - EVALUATION WITHIN 48HRS OF ANESTHETIC Vital Signs in Normal Range: Yes Patient Participated in Evaluation: Yes Respiratory Function Stable: Yes Airway Patent: Yes Cardiovascular Function Stable: Yes Hydration Status Stable: Yes Pain Control Satisfactory: Yes Nausea and Vomiting Control Satisfactory: Yes Mental Status Recovered: Yes Vital Signs: Last Vital Signs Temp 36.3 C 07/07/20 08:10 Pulse 89 07/07/20 08:10 Resp 16 07/07/20 08:10 BP 131/74 07/07/20 08:10 Pulse Ox 96 07/07/20 08:10
[2020-07-07 10:17] VITALS: BP 157/77; PULSE 72
== END 2020-07-07 10:13 | disposition home or self-care (01) ==
LOC: JD.SDS 08:00
PROVIDERS: ATTEND Surgery
DX: R14.0 Abdominal distension (gaseous) (principal); R19.7 Diarrhea, unspecified; K31.89 Other diseases of stomach and duodenum; K22.8 Other specified diseases of esophagus; E11.9 Type 2 diabetes mellitus without complications; E78.00 Pure hypercholesterolemia, unspecified; E03.9 Hypothyroidism, unspecified; E78.2 Mixed hyperlipidemia; M81.0 Age-related osteoporosis without current pathological fracture; F17.210 Nicotine dependence, cigarettes, uncomplicated; Z88.6 Allergy status to analgesic agent; Z88.8 Allergy status to other drugs, medicaments and biological substances; Z88.0 Allergy status to penicillin; Z88.2 Allergy status to sulfonamides; Z91.040 Latex allergy status; Z79.890 Hormone replacement therapy; Z79.899 Other long term (current) drug therapy
CPT/HCPCS: 43239; 82947; J2704; J7120; 00731; 88305; J3010

== ENCOUNTER 2020-09-24 09:25 | Emergency (ER) | payer MEDICARE ==
[2020-09-24 09:38] VITALS: BP 139/73; PULSE 74
[2020-09-24] MEDS ORDERED: Acetaminophen 325 MG Tab PO ONE (11:10)
--- NOTE | 2020-09-24 11:11 | EDM.PDOC ---
ED HPI GENERAL MEDICAL PROBLEM - General Chief Complaint: Trauma Stated Complaint: FALL/MULTIPLE INJURIES Time Seen by Provider: 09/24/20 09:57 Source of Information: Reports: Patient, RN Notes Reviewed - History of Present Illness INITIAL COMMENTS - FREE TEXT/NARRATIVE: 64 yr old female tripped and fell a short time ago landing onto concrete R side of body. Has R shoulder, elbow, wrist, hip and knee discomfort with the wrist discomfort the most severe. No LOC. No chest pain or dififculty breathing. Right Wrist Pain Score (Numeric/FACES): 8 - Related Data Allergies Allergy/AdvReac Type Severity Reaction Status Date / Time codeine Allergy Severe Airway Verified 09/24/20 09:38 Tightness fentanyl [From Duragesic] Allergy Severe Airway Verified 09/24/20 09:38 Tightness latex Allergy Severe Rash Verified 09/24/20 09:38 morphine Allergy Severe Hives Verified 09/24/20 09:38 pregabalin [From Lyrica] Allergy Severe Hives Verified 09/24/20 09:38 bupropion [From Wellbutrin] AdvReac Severe Tremors Verified 09/24/20 09:38 dulaglutide [From Trulicity] AdvReac Severe Pain Verified 09/24/20 09:38 Penicillins AdvReac Severe Muscle Verified 09/24/20 09:38 Aches Ablvrld-[id number]-Lnw Reductase AdvReac Severe Muscle Verified 09/24/20 09:38 Inhibitor Aches Sulfa (Sulfonamide AdvReac Severe Vomiting Verified 09/24/20 09:38 Antibiotics) Home Meds: Home Meds Levothyroxine [Synthroid] 50 mcg PO DAILY 09/27/16 [History] Pantoprazole [ProTONIX] 40 mg PO DAILY 09/27/16 [History] tiZANidine HCl [Tizanidine HCl] 4 mg PO TID 09/27/16 [History] Ezetimibe 10 mg PO BEDTIME 04/18/18 [History] Gabapentin [Neurontin] 800 mg PO QID 04/18/18 [History] Triamterene/Hydrochlorothiazid [Dyazide 37.5-25] 1 cap PO DAILY 04/18/18 [History] Cinnamon Bark [Cinnamon] 500 mg PO DAILY 05/12/19 [History] Red Yeast Rice 600 mg PO DAILY 03/10/20 [History] sitaGLIPtin Phos/Metformin HCl [Janumet 50-1,000 MG] 50 mg PO BID 05/12/19 [History] Ondansetron [Zofran ODT] 4 mg PO Q6H PRN #12 tab.dis 06/27/20 [Rx] B2/Vits A,C,E/Lut/Zeaxanth/Min [Icaps] 1 tab PO DAILY 07/06/20 [History] Cannabidiol (Cbd) Extract [CBD Oil] 1 cap PO DAILY 07/06/20 [History] Folic Acid 1 mg PO DAILY 07/06/20 [History] [place]-3/DHA/Epa/Fish Oil [[place] 3 500 Softgel] 1 cap PO DAILY 07/06/20 [History] Prazosin [Minpress] 1 mg PO BEDTIME 07/06/20 [History] traMADol [Ultram] 50 mg PO BID PRN 07/06/20 [History] Past Medical History HEENT History: Reports: Allergic Rhinitis, Impaired Vision, Other (See Below) Other HEENT History: has glasses, dentures, left amaurosis fugar, left eye vision loss Cardiovascular History: Reports: High Cholesterol, Hypertension, Other (See Below) Other Cardiovascular History: carotid stenosis Respiratory History: Reports: Pneumonia, Recurrent Other Respiratory History: snoring Gastrointestinal History: Reports: Chronic Diarrhea, GERD, Other (See Below) Other Gastrointestinal History: chronic nausea, stomach ulcer, abdominal pain Genitourinary History: Reports: Renal Calculus Other Genitourinary History: bilateral kidney tumors, hematuria, frequency, kidney stones, public bone pain 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: , Other (See Below) Other [employer] History: bacterial vaginosis Musculoskeletal History: Reports: Arthritis, Back Pain, Chronic, Fibromyalgia, Neck Pain, Chronic, Osteoarthritis, Osteoporosis, RA Other Musculoskeletal History: right knee pain, muscle spasms, right shoulder pain, dysarthria, body aches, back pain Neurological History: Reports: Migraines, TIA, Vertigo Psychiatric History: Reports: Anxiety, Depression, Panic Attack, PTSD, Other (See Below) Other Psychiatric History: insomnia, daytime somnolence Endocrine/Metabolic History: Reports: Diabetes, Type II, Hypothyroidism, Obesity/BMI 30+ Hematologic History: Reports: Blood Transfusion(s) Immunologic History: Reports: None Oncologic (Cancer) History: Reports: None Dermatologic History: Reports: Cellulitis Other Dermatologic History: rash - Infectious Disease History Infectious Disease History: Reports: None - Past Surgical History Head Surgeries/Procedures: Reports: None HEENT Surgical History: Reports: Adenoidectomy, Oral Surgery, Tonsillectomy Cardiovascular Surgical History: Reports: None Respiratory Surgical History: Reports: None GI Surgical History: Reports: Appendectomy Female Surgical History: Reports: Section, Hysterectomy, Tubal Ligation Endocrine Surgical History: Reports: Thyroidectomy Neurological Surgical History: Reports: None Musculoskeletal Surgical History: Reports: Arthroscopic Knee, Knee Replacement Oncologic Surgical History: Reports: None Dermatological Surgical History: Reports: None Social & Family History - Family History Family Medical History: No Pertinent Family History - Tobacco Use Tobacco Use Status *Q: Unknown Ever Used Tobacco - Caffeine Use Caffeine Use: Reports: Coffee - Recreational Drug Use Recreational Drug Use: No - Living Situation & Occupation Living situation: Reports: , Alone Occupation: Unemployed Review of Systems - Review of Systems Review Of Systems: See Below Constitutional: Reports: No Symptoms Eyes: Reports: No Symptoms Ears: Reports: No Symptoms Nose: Reports: No Symptoms Mouth/Throat: Reports: No Symptoms Respiratory: Denies: Shortness of Breath Cardiovascular: Denies: Chest Pain GI/Abdominal: Reports: No Symptoms Musculoskeletal: Reports: Shoulder Pain, Joint Pain (elbow, wrist and knee) Skin: Reports: Other (abrasion injuries R elbow and R knee) ED EXAM, GENERAL - Physical Exam Exam: See Below General Appearance: Alert, Mild Distress Ears: Normal External Exam Nose: Normal Inspection Throat/Mouth: Normal Inspection Head: Atraumatic Neck: Supple, Non-Tender Respiratory/Chest: No Respiratory Distress, Lungs Clear, Chest Non-Tender Back Exam: No: Paraspinal Tenderness, Vertebral Tenderness Extremities: Joint Swelling (very mild swelling and bruising just inf. to R knee, knee and R hip nontender, good ROM without any significant pain), Other (R wrist and R shoulder tender, pain with motion, R elbow nontender, good ROM) Neurological: Alert, Oriented, No Motor/Sensory Deficits Skin Exam: Warm, Dry, Normal Color Course - Vital Signs Last Recorded V/S: Last Vital Signs Temp 97.4 F 09/24/20 09:34 Pulse 74 09/24/20 09:34 Resp 16 09/24/20 09:34 BP 139/73 07/24/21 09:34 Pulse Ox 95 09/24/20 09:34 - Orders/Labs/Meds Orders: Active Orders 24 hr Category Date Time Status Shoulder Comp Rt [CR] Stat Exams 09/24/20 10:03 Taken Wrist Comp Min 3V Rt [CR] Stat Exams 09/24/20 10:03 Taken DME for Discharge [COMM] Stat Oth 09/24/20 11:06 Ordered Durable Medical Equipment for Discharge [DME for Oth 09/24/20 11:04 Ordered Discharge] [COMM] Stat Meds: Medications Discontinued Medications Generic Name Dose Route Start Last Admin Trade Name Myah PRN Reason Stop Dose Admin Acetaminophen 975 mg 09/24/20 11:10 09/24/20 11:27 Acetaminophen 325 Mg Tab PO 09/24/20 11:11 975 mg NOW ONE Administration - Re-Assessments/Exams Free Text/Narrative Re-Assessment/Exam: 09/24/20 13:25 X rays of shoulder and R wrist, no visible fx. Departure - Departure Time of Disposition: 11:08 Disposition: Home, Self-Care 01 Condition: Fair Clinical Impression: Fall Qualifiers: Encounter type: initial encounter Qualified Code(s): W19.XXXA - Unspecified fall, initial encounter Shoulder contusion Qualifiers: Encounter type: initial encounter Laterality: right Qualified Code(s): S40.011A - Contusion of right shoulder, initial encounter Elbow abrasion Qualifiers: Encounter type: initial encounter Laterality: right Qualified Code(s): S50.311A - Abrasion of right elbow, initial encounter Sprain of wrist, right Qualifiers: Encounter type: initial encounter Qualified Code(s): S63.501A - Unspecified sprain of right wrist, initial encounter Knee contusion Qualifiers: Encounter type: initial encounter Laterality: right Qualified Code(s): S80.01XA - Contusion of right knee, initial encounter - Discharge Information Instructions: Contusion, [id number], Wrist Sprain, Adult Referrals: Jaime York MD [Primary Care Provider] - Forms: ED Department Discharge Additional Instructions: R wrist splint for comfort and protection, Gurpreet wrap R knee, tylenol up to 3 times daily as needed. Ice pack for areas of swelling as needed. Follow up clinic if not much better, if not getting back to normal within 5 to 7 days as expected. Return to ED as needed. Sepsis Event Note (ED) - Evaluation Sepsis Screening Result: No Definite Risk - Focused Exam Vital Signs: Vital Signs Temp Pulse Resp BP Pulse Ox 09/24/20 09:34 97.4 F 74 16 139/73 95 - My Orders Last 24 Hours: My Active Orders 09/24/20 10:03 Shoulder Comp Rt [CR] Stat Wrist Comp Min 3V Rt [CR] Stat 09/24/20 11:04 Durable Medical Equipment for Discharge [DME for Discharge] [COMM] Stat 09/24/20 11:06 DME for Discharge [COMM] Stat - Assessment/Plan Last 24 Hours: My Active Orders 09/24/20 10:03 Shoulder Comp Rt [CR] Stat Wrist Comp Min 3V Rt [CR] Stat 09/24/20 11:04 Durable Medical Equipment for Discharge [DME for Discharge] [COMM] Stat 09/24/20 11:06 DME for Discharge [COMM] Stat
--- NOTE | 2020-09-24 14:37 | CR ---
Right wrist: 4 views of the right wrist were obtained as well as an additional navicular view. Comparison: No prior imaging is available. Minimal joint space narrowing is noted off the distal navicular bone. Mild degenerative change is seen at the CMC joint of the thumb. Degenerative change is seen within the IP joint of the thumb. Scattered mild joint space narrowing is seen within the MCP joints. No acute fracture or dislocation is seen. Impression: 1. Degenerative change as noted above. 2. No acute abnormality is appreciated on right wrist exam. Diagnostic code #2
--- NOTE | 2020-09-24 15:53 | CR ---
Right shoulder: 3 views of the right shoulder were obtained. Comparison: Prior right shoulder exam as of 11/06/17 and 10/17/17 Calcification is seen off the inferior joint which is stable from prior exams. Glenohumeral joint is otherwise unremarkable. Acromioclavicular joint is normal. Degenerative change is partially noted within the thoracic spine. No acute fracture or dislocation is seen. Impression: 1. Stable calcification off the inferior joint. Degenerative change within the spine. 2. Nothing acute is seen on right shoulder study. Diagnostic code #2
== END 2020-09-24 11:35 | disposition home or self-care (01) ==
LOC: JD.ED 09:25
DX: S63.501A Unspecified sprain of right wrist, initial encounter (principal); S80.01XA Contusion of right knee, initial encounter; S40.011A Contusion of right shoulder, initial encounter; S50.311A Abrasion of right elbow, initial encounter; I10 Essential (primary) hypertension; K21.9 Gastro-esophageal reflux disease without esophagitis; M06.9 Rheumatoid arthritis, unspecified; E11.9 Type 2 diabetes mellitus without complications; E03.9 Hypothyroidism, unspecified; E66.9 Obesity, unspecified; Z68.30 Body mass index [BMI] 30.0-30.9, adult; Z88.5 Allergy status to narcotic agent; Z88.8 Allergy status to other drugs, medicaments and biological substances; Z88.6 Allergy status to analgesic agent; Z91.040 Latex allergy status; Z88.0 Allergy status to penicillin; Z88.2 Allergy status to sulfonamides; Z79.899 Other long term (current) drug therapy; W01.0XXA Fall on same level from slipping, tripping and stumbling without subsequent striking against object, initial encounter
CPT/HCPCS: 73030; 73110; 99283; A9270

== ENCOUNTER 2021-02-14 22:58 | Emergency (ER) | payer MEDICARE ==
[2021-02-14 23:03] VITALS: BP 221/127; PULSE 91
[2021-02-14] MEDS ORDERED: LORazepam 2 MG/ML SDV IVPUSH ONE (23:10)
--- NOTE | 2021-02-14 23:24 | EDM.PDOC ---
ED HPI GENERAL MEDICAL PROBLEM - General Chief Complaint: Behavioral/Psych Stated Complaint: KIMBERLY AMB Time Seen by Provider: 02/14/21 23:00 - History of Present Illness INITIAL COMMENTS - FREE TEXT/NARRATIVE: 65-year-old female presents the emergency room brought in by EMS who reports patient has severe agitation. Patient has had worsening anxiety and agitation. She cannot sleep. Patient is in an apartment where apparently there is a lot of drug activity. She has a strange smell coming up through her june and is concerned about the occupants that live below her be an in and out at all crazy hours. Patient has been off several of her medications because of low funds secondary to recently having Covid. She has been off her trazodone she takes 2 of them at bedtime she has been off these for couple of weeks she has been off her tramadol but states she really does not need these. Patient denies any chest pain or chest pressure. She has a headache sometimes quite severe she cannot really establish when this started but knows its been bothering her for the last couple of days. - Related Data Allergies Allergy/AdvReac Type Severity Reaction Status Date / Time codeine Allergy Severe Airway Verified 09/24/20 09:38 Tightness fentanyl [From Duragesic] Allergy Severe Airway Verified 09/24/20 09:38 Tightness latex Allergy Intermediate Rash Verified 09/25/20 11:03 morphine Allergy Intermediate Hives Verified 09/25/20 11:03 pregabalin [From Lyrica] Allergy Intermediate Hives Verified 09/25/20 11:03 dulaglutide [From Trulicity] AdvReac Intermediate Pain Verified 09/25/20 11:03 bupropion [From Wellbutrin] AdvReac Mild Tremors Verified 09/25/20 11:03 Penicillins AdvReac Mild Muscle Verified 09/25/20 11:03 Aches Iwrbjtz-SXM-EzV Reductase AdvReac Mild Muscle Verified 09/25/20 11:03 Inhibitor Aches [Ckjxnuc-Abf-Wlu Reductase Inhibitor] Sulfa (Sulfonamide AdvReac Mild Vomiting Verified 09/25/20 11:03 Antibiotics) Home Meds: Home Meds Levothyroxine [Synthroid] 50 mcg PO DAILY 09/27/16 [History] Pantoprazole [ProTONIX] 40 mg PO DAILY 09/27/16 [History] tiZANidine HCl [Tizanidine HCl] 4 mg PO TID 09/27/16 [History] Ezetimibe 10 mg PO BEDTIME 04/18/18 [History] Gabapentin [Neurontin] 800 mg PO QID 04/18/18 [History] Triamterene/Hydrochlorothiazid [Dyazide 37.5-25] 1 cap PO DAILY 04/18/18 [History] Cinnamon Bark [Cinnamon] 500 mg PO DAILY 05/12/19 [History] Red Yeast Rice 600 mg PO DAILY 05/12/19 [History] sitaGLIPtin Phos/Metformin HCl [Janumet 50-1,000 MG] 50 mg PO BID 05/12/19 [History] Ondansetron [Zofran ODT] 4 mg PO Q6H PRN #12 tab.dis 06/27/20 [Rx] B2/Vits A,C,E/Lut/Zeaxanth/Min [Icaps] 1 tab PO DAILY 07/06/20 [History] Cannabidiol (Cbd) Extract [CBD Oil] 1 cap PO DAILY 07/06/20 [History] Folic Acid 1 mg PO DAILY 07/06/20 [History] [place]-3/DHA/Epa/Fish Oil [[place] 3 500 Softgel] 1 cap PO DAILY 07/06/20 [History] Prazosin [Minpress] 1 mg PO BEDTIME 07/06/20 [History] traMADol [Ultram] 50 mg PO BID PRN 07/06/20 [History] Past Medical History HEENT History: Reports: Allergic Rhinitis, Impaired Vision, Other (See Below) Other HEENT History: has glasses, dentures, left amaurosis fugar, left eye vision loss Cardiovascular History: Reports: High Cholesterol, Hypertension, Other (See Below) Other Cardiovascular History: carotid stenosis Respiratory History: Reports: Pneumonia, Recurrent Other Respiratory History: snoring Gastrointestinal History: Reports: Chronic Diarrhea, GERD, Other (See Below) Other Gastrointestinal History: chronic nausea, stomach ulcer, abdominal pain Genitourinary History: Reports: Renal Calculus Other Genitourinary History: bilateral kidney tumors, hematuria, frequency, kidney stones, public bone pain [employer]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: , Other (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 Below) 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 Musculoskeletal History: Reports: Arthritis, Back Pain, Chronic, Fibromyalgia, Neck Pain, Chronic, Osteoarthritis, Osteoporosis, RA Other Musculoskeletal History: right knee pain, muscle spasms, right shoulder pain, dysarthria, body aches, back pain Neurological History: Reports: Migraines, TIA, Vertigo Psychiatric History: Reports: Anxiety, Depression, Panic Attack, PTSD, Other (See Below) Other Psychiatric History: insomnia, daytime somnolence Endocrine/Metabolic History: Reports: Diabetes, Type II, Hypothyroidism, Obesity/BMI 30+ Hematologic History: Reports: Blood Transfusion(s) Immunologic History: Reports: None Oncologic (Cancer) History: Reports: None Dermatologic History: Reports: Cellulitis Other Dermatologic History: rash - Infectious Disease History Infectious Disease History: Reports: None, Novel Coronavirus - Past Surgical History Head Surgeries/Procedures: Reports: None HEENT Surgical History: Reports: Adenoidectomy, Oral Surgery, Tonsillectomy Cardiovascular Surgical History: Reports: None Respiratory Surgical History: Reports: None GI Surgical History: Reports: Appendectomy Female Surgical History: Reports: Section, Hysterectomy, Tubal Ligation Endocrine Surgical History: Reports: Thyroidectomy Neurological Surgical History: Reports: None Musculoskeletal Surgical History: Reports: Arthroscopic Knee, Knee Replacement Oncologic Surgical History: Reports: None Dermatological Surgical History: Reports: None Social & Family History - Family History Family Medical History: No Pertinent Family History - Tobacco Use Tobacco Use Status *Q: Unknown Ever Used Tobacco - Caffeine Use Caffeine Use: Reports: Coffee - Recreational Drug Use Recreational Drug Use: No - Living Situation & Occupation Living situation: Reports: , Alone Occupation: Unemployed ED ROS GENERAL - Review of Systems Review Of Systems: See Below Constitutional: Reports: Weakness, Fatigue HEENT: Reports: No Symptoms Respiratory: Reports: No Symptoms Cardiovascular: Reports: No Symptoms GI/Abdominal: Reports: No Symptoms : Reports: No Symptoms Musculoskeletal: Reports: No Symptoms Skin: Reports: No Symptoms Neurological: Reports: Headache Psychiatric: Reports: Agitation, Anxiety Hematologic/Lymphatic: Reports: No Symptoms ED EXAM, GENERAL - Physical Exam Exam: See Below Exam Limited By: No Limitations General Appearance: Alert, Anxious, Other (She is quite hypertensive) Eye Exam: Bilateral Eye: Normal Inspection, PERRL Ears: Normal External Exam, Normal Canal, Hearing Grossly Normal, Normal TMs Nose: Normal Inspection, Normal Mucosa, No Blood Throat/Mouth: Normal Inspection, Normal Lips, Normal Teeth, Normal Oropharynx, Normal Voice, No Airway Compromise. No: Normal Gums (Her dentures are not in place) Head: Atraumatic, Normocephalic Neck: Normal Inspection, Supple, Non-Tender, Full Range of Motion. No: Lymphadenopathy (L), Lymphadenopathy (R) Respiratory/Chest: No Respiratory Distress, Lungs Clear, Normal Breath Sounds Cardiovascular: Regular Rate, Rhythm, No Edema, Bradycardia GI/Abdominal: Normal Bowel Sounds, Soft, Non-Tender Back Exam: Normal Inspection. No: CVA Tenderness (L), CVA Tenderness (R) Extremities: Normal Inspection Psychiatric: Anxious (Rushed speech) Skin Exam: Warm, Dry, Intact Course - Vital Signs Last Recorded V/S: Last Vital Signs Temp 36.1 C 02/14/21 23:00 Pulse 91 02/14/21 23:00 Resp 20 02/14/21 23:00 BP 221/127 H 02/14/21 23:00 Pulse Ox 99 02/14/21 23:00 - Orders/Labs/Meds Orders: Active Orders 24 hr Category Date Time Status Head wo Cont [CT] Stat Exams 02/14/21 23:29 Taken Labs: Laboratory Tests 02/14/21 02/14/21 02/14/21 Range/Units 23:25 23:25 23:25 WBC 8.53 (3.98-10.04) K/mm3 RBC 5.07 (3.98-5.22) M/mm3 Hgb 15.7 (11.2-15.7) gm/dl Hct 46.4 H (34.1-44.9) % MCV 91.5 (79.4-94.8) fl MCH 31.0 (25.6-32.2) pg MCHC 33.8 (32.2-35.5) g/dl RDW Std Deviation 45.0 (36.4-46.3) fL Plt Count 185 (182-369) K/mm3 MPV 10.6 (9.4-12.3) fl Neut % (Auto) 60.1 (34.0-71.1) % Lymph % (Auto) 28.8 (19.3-51.7) % [place] % (Auto) 8.0 (4.7-12.5) % Eos % (Auto) 2.3 (0.7-5.8) Baso % (Auto) 0.6 (0.1-1.2) % Neut # (Auto) 5.12 (1.56-6.13) K/mm3 Lymph # (Auto) 2.46 (1.18-3.74) K/mm3 [place] # (Auto) 0.68 H (0.24-0.36) K/mm3 Eos # (Auto) 0.20 (0.04-0.36) K/mm3 Baso # (Auto) 0.05 (0.01-0.08) K/mm3 Sodium 145 (136-145) mEq/L Potassium 3.3 L (3.5-5.1) mEq/L Chloride 108 H (98-107) mEq/L Carbon Dioxide 25 (21-32) mEq/L Anion Gap 15.3 H (5-15) BUN 28 H (7-18) mg/dL Creatinine 0.9 (0.55-1.02) mg/dL Est Cr Clr Drug Dosing TNP Estimated GFR (MDRD) > 60 (>60) mL/min BUN/Creatinine Ratio 31.1 H (14-18) Glucose 231 H (70-99) mg/dL Calcium 9.1 (8.5-10.1) mg/dL Total Bilirubin 0.6 (0.2-1.0) mg/dL AST 16 (15-37) U/L ALT 20 (14-59) U/L Alkaline Phosphatase 70 (46-116) U/L Total Protein 6.8 (6.4-8.2) g/dl Albumin 3.8 (3.4-5.0) g/dl Globulin 3.0 gm/dL Albumin/Globulin Ratio 1.3 (1-2) TSH 3rd Generation 2.063 (0.358-3.74) uIU/mL Ethyl Alcohol 0.00 (0.00) gm% SARS-CoV-2 RNA (ROBERT) Positive H (NEGATIVE) Meds: Medications Discontinued Medications Generic Name Dose Route Start Last Admin Trade Name Freq PRN Reason Stop Dose Admin Labetalol HCl 20 mg 02/14/21 23:59 02/15/21 00:18 Labetalol 100 Mg/20 Ml Mdv IVPUSH 02/15/21 00:00 20 mg ONETIME ONE Administration Protocol Lorazepam 1 mg 02/14/21 23:10 02/14/21 23:27 Lorazepam 2 Mg/Ml Sdv IVPUSH 02/14/21 23:11 1 mg ONETIME ONE Administration Potassium Chloride Confirm 02/15/21 01:41 02/15/21 05:17 Potassium Chloride 20 Meq Tab.Er Administered 02/15/21 01:42 Not Given Dose 40 meq .ROUTE .STK-MED ONE - Re-Assessments/Exams Free Text/Narrative Re-Assessment/Exam: 02/14/21 23:36 Patient has been off her trazodone for 2 weeks and wondering if this is contributing to her anxiety. I am concerned about her headache especially with his escalated blood pressure we will watch her blood pressure see if it comes down on its own we will go ahead and check a head CT. Other labs ordered and pending 02/14/21 23:[address] blood pressure was 217/88 we will treat it 02/15/21 06:25 Patient was discharged after being very insistent on going home I was quite concerned about her blood pressure and ultimately she required some labetalol to bring it down I explained this to her but the patient was still insistent on going home. Patient's Covid did come back positive however she had a recent infection. Departure - Departure Time of Disposition: 01:40 Disposition: Home, Self-Care 01 Clinical Impression: Anxiety, Severe hypertension - Discharge Information Referrals: Jaime York MD [Primary Care Provider] - Forms: ED Department Discharge Additional Instructions: See handwritten discharge instructions Sepsis Event Note (ED) - Evaluation Sepsis Screening Result: No Definite Risk - Focused Exam Vital Signs: Vital Signs Temp Pulse Resp BP Pulse Ox 02/14/21 23:00 36.1 C 91 20 221/127 H 99 - My Orders Last 24 Hours: My Active Orders 02/14/21 23:29 Head wo Cont [CT] Stat - Assessment/Plan Last 24 Hours: My Active Orders 02/14/21 23:29 Head wo Cont [CT] Stat
[2021-02-14] MEDS ORDERED: Labetalol 100 MG/20 ML MDV IVPUSH ONE (23:59)
[2021-02-15] MEDS ORDERED: Potassium Chloride 20 MEQ Tab.ER ONE (01:41)
--- NOTE | 2021-02-15 07:25 | CT ---
Head CT Technique: Multiple axial sections through the brain were obtained. Intravenous contrast was not utilized. Reconstructed coronal and sagittal images were obtained. Comparison: Prior head CT study of 05/12/19. Findings: Ventricles along with basal cisterns and sulci over the convexities are mildly prominent. Very slight diminished density is noted within the periventricular white matter compatible with minimal small vessel ischemic demyelination change. No other abnormal parenchymal densities are seen. No evidence of intracranial hemorrhage is seen. No midline shift or mass-effect is seen. Incidental empty sella is noted which is a normal variant if patient has no symptoms of pituitary dysfunction. Visualized mastoid sinuses and visualized paranasal sinuses show nothing acute. Atherosclerotic change is seen within the carotid siphon. No acute calvarial finding is appreciated. Impression: 1. Stable findings from prior head CT study. 2. Nothing acute is appreciated on noncontrast head CT exam. Diagnostic code #2 I agree with preliminary report from [facility], finalized on 02/15/21, 1:49 AM [employer], code 1
== END 2021-02-15 01:45 | disposition home or self-care (01) ==
LOC: JD.ED 22:58
DX: F41.9 Anxiety disorder, unspecified (principal); U07.1 COVID-19; I10 Essential (primary) hypertension; K21.9 Gastro-esophageal reflux disease without esophagitis; E78.00 Pure hypercholesterolemia, unspecified; M19.90 Unspecified osteoarthritis, unspecified site; E11.9 Type 2 diabetes mellitus without complications; E03.9 Hypothyroidism, unspecified; E66.9 Obesity, unspecified; Z68.30 Body mass index [BMI] 30.0-30.9, adult; Z88.5 Allergy status to narcotic agent; Z91.040 Latex allergy status; Z88.8 Allergy status to other drugs, medicaments and biological substances; Z88.2 Allergy status to sulfonamides; Z79.899 Other long term (current) drug therapy
CPT/HCPCS: 36415; 70450; 80053; 80307; 84443; 85025; 96374; 96375; 99284; J2060; J3490; U0002

== ENCOUNTER 2021-04-21 04:24 | Emergency (ER) | payer MEDICARE ==
[2021-04-21] MEDS ORDERED: HYDROmorphone 0.5 MG/0.5 ML Syringe IVPUSH ONE (04:56)
[2021-04-21] MEDS ORDERED: Ondansetron 4 MG/2 ML SDV IVPUSH ONE (04:56)
[2021-04-21] MEDS ORDERED: Lactated Ringers 1,000 ML IV SCH (05:00)
[2021-04-21 07:07] VITALS: BP 145/68; PULSE 85
[2021-04-21] MEDS ORDERED: Acetaminophen/HYDROcodone 325-5 MG Tab PO ONE (07:26)
== END 2021-04-21 07:44 | disposition home or self-care (01) ==
LOC: JD.ED 04:24
DX: N23 Unspecified renal colic (principal); E78.00 Pure hypercholesterolemia, unspecified; I10 Essential (primary) hypertension; K21.9 Gastro-esophageal reflux disease without esophagitis; E03.9 Hypothyroidism, unspecified; E66.9 Obesity, unspecified; Z68.30 Body mass index [BMI] 30.0-30.9, adult; Z86.73 Personal history of transient ischemic attack (TIA), and cerebral infarction without residual deficits; Z88.5 Allergy status to narcotic agent; Z88.8 Allergy status to other drugs, medicaments and biological substances; Z91.040 Latex allergy status; Z88.0 Allergy status to penicillin; Z79.899 Other long term (current) drug therapy
CPT/HCPCS: 36415; 74176; 80053; 81001; 85025; 96374; 96375; 99284; A9270; J1170; J2405; J7120

== ENCOUNTER 2021-05-01 16:28 | Emergency (ER) | payer MEDICARE ==
[2021-05-01 16:49] VITALS: BP 180/93; PULSE 86
[2021-05-01] MEDS ORDERED: Sodium Chloride 0.9% 10 ML Syringe FLUSH PRN (17:25)
[2021-05-01] MEDS ORDERED: Sodium Chloride 0.9% 1,000 ML IV STA (17:36)
[2021-05-01] MEDS ORDERED: Ondansetron 4 MG/2 ML SDV IVPUSH ONE ×2 (17:36→19:45)
[2021-05-01] MEDS ORDERED: HYDROmorphone 0.5 MG/0.5 ML Syringe IVPUSH ONE (17:48)
[2021-05-01] MEDS ORDERED: Sodium Chloride 0.9% 10 ML Syringe FLUSH ONE (17:59)
[2021-05-01] MEDS ORDERED: Iopamidol 612 MG/ML 100 ML Bottle IVPUSH ONE (17:59)
[2021-05-01] MEDS ORDERED: Sodium Chloride 0.9% 100 ML IV SCH (18:00)
== END 2021-05-01 20:15 | disposition home or self-care (01) ==
LOC: JD.ED 16:28
DX: M79.7 Fibromyalgia (principal); E78.00 Pure hypercholesterolemia, unspecified; I10 Essential (primary) hypertension; E11.9 Type 2 diabetes mellitus without complications; E03.9 Hypothyroidism, unspecified; E66.9 Obesity, unspecified; Z88.5 Allergy status to narcotic agent; Z91.040 Latex allergy status; Z68.31 Body mass index [BMI] 31.0-31.9, adult; Z88.0 Allergy status to penicillin; Z88.2 Allergy status to sulfonamides; Z88.8 Allergy status to other drugs, medicaments and biological substances; Z79.899 Other long term (current) drug therapy; Z86.73 Personal history of transient ischemic attack (TIA), and cerebral infarction without residual deficits; Z72.0 Tobacco use
CPT/HCPCS: 36415; 74177; 80053; 81001; 85025; 86140; 96374; 96375; 96376; 99284; J1170; J2405; J7030; Q9967; 99285

== ENCOUNTER 2021-05-26 18:57 | Emergency (ER) | payer MEDICARE ==
[2021-05-26 19:28] VITALS: BP 186/94; PULSE 99
== END 2021-05-26 20:09 | disposition left against medical advice (07) ==
LOC: JD.ED 18:57
DX: F41.0 Panic disorder [episodic paroxysmal anxiety] (principal); N95.1 Menopausal and female climacteric states; I10 Essential (primary) hypertension; E11.9 Type 2 diabetes mellitus without complications; E66.9 Obesity, unspecified; Z68.30 Body mass index [BMI] 30.0-30.9, adult; F17.210 Nicotine dependence, cigarettes, uncomplicated; Z88.5 Allergy status to narcotic agent; Z91.040 Latex allergy status; Z88.2 Allergy status to sulfonamides; Z88.0 Allergy status to penicillin; Z88.8 Allergy status to other drugs, medicaments and biological substances; Z79.899 Other long term (current) drug therapy
CPT/HCPCS: 99284-25

== ENCOUNTER 2021-10-01 08:35 | Emergency (ER) | payer MEDICARE ==
[2021-10-01] MEDS ORDERED: Ketorolac 60 MG/2 ML SDV IM ONE (13:46)
[2021-10-01 13:51] VITALS: BP 161/90; PULSE 83
== END 2021-10-01 14:05 | disposition home or self-care (01) ==
LOC: JD.ED 08:35
DX: S99.921A Unspecified injury of right foot, initial encounter (principal); I10 Essential (primary) hypertension; E11.9 Type 2 diabetes mellitus without complications; E66.9 Obesity, unspecified; Z68.31 Body mass index [BMI] 31.0-31.9, adult; Z88.5 Allergy status to narcotic agent; Z88.6 Allergy status to analgesic agent; Z91.040 Latex allergy status; Z88.0 Allergy status to penicillin; Z88.2 Allergy status to sulfonamides; Z79.899 Other long term (current) drug therapy; Z90.49 Acquired absence of other specified parts of digestive tract; W22.8XXA Striking against or struck by other objects, initial encounter
CPT/HCPCS: 73660; 96372; 99283; J1885

== ENCOUNTER 2022-01-17 07:37 | Emergency (ER) | payer MEDICARE | END 2022-01-17 07:50 | disposition left against medical advice (07) | LOC: JD.ED 07:37 | DX: Z53.21 Procedure and treatment not carried out due to patient leaving prior to being seen by health care provider (principal) ==

== ENCOUNTER 2022-08-11 10:55 | Emergency (ER) | payer MEDICARE ==
[2022-08-11 11:20] VITALS: BP 181/92; PULSE 95
[2022-08-11] MEDS ORDERED: Ketorolac 30 MG/ML SDV IM ONE (11:34)
[2022-08-11] MEDS ORDERED: Acetaminophen/HYDROcodone 325-5 MG Tab PO ONE (11:35)
== END 2022-08-11 12:17 | disposition home or self-care (01) ==
LOC: JD.ED 10:55
DX: M77.9 Enthesopathy, unspecified (principal); I10 Essential (primary) hypertension; K21.9 Gastro-esophageal reflux disease without esophagitis; E03.9 Hypothyroidism, unspecified; E11.9 Type 2 diabetes mellitus without complications; E66.9 Obesity, unspecified; F17.210 Nicotine dependence, cigarettes, uncomplicated; Z86.16 Personal history of COVID-19; Z79.899 Other long term (current) drug therapy; Z79.84 Long term (current) use of oral hypoglycemic drugs; Z88.5 Allergy status to narcotic agent; Z91.040 Latex allergy status; Z88.8 Allergy status to other drugs, medicaments and biological substances; Z88.0 Allergy status to penicillin; Z88.2 Allergy status to sulfonamides; Z68.34 Body mass index [BMI] 34.0-34.9, adult
CPT/HCPCS: 29125; 96372; 99283; A9270; J1885

== ENCOUNTER 2023-02-04 19:45 | Emergency (ER) | payer MEDICARE ==
[2023-02-04 23:16] VITALS: BP 217/71; PULSE 97
== END 2023-02-04 21:21 | disposition home or self-care (01) ==
LOC: JD.ED 19:45
DX: R44.3 Hallucinations, unspecified (principal); I10 Essential (primary) hypertension; E11.9 Type 2 diabetes mellitus without complications; E03.9 Hypothyroidism, unspecified; E66.9 Obesity, unspecified; K21.9 Gastro-esophageal reflux disease without esophagitis; F17.210 Nicotine dependence, cigarettes, uncomplicated; Z68.32 Body mass index [BMI] 32.0-32.9, adult; Z86.16 Personal history of COVID-19; Z88.0 Allergy status to penicillin; Z88.2 Allergy status to sulfonamides; Z88.5 Allergy status to narcotic agent; Z91.011 Allergy to milk products; Z91.040 Latex allergy status; Z88.8 Allergy status to other drugs, medicaments and biological substances; Z79.899 Other long term (current) drug therapy; Z90.49 Acquired absence of other specified parts of digestive tract; Z90.710 Acquired absence of both cervix and uterus
CPT/HCPCS: 99283; 99284

== ENCOUNTER 2023-02-07 10:32 | Emergency (ER) | payer MEDICARE ==
[2023-02-07 11:33] LABS: HEMATOCRIT 42.5 % (37.0-47.0); HEMOGLOBIN 14.2 gm/dl (12.0-16.0); MEAN CORPUSCULAR HEMOGLOBIN 30.3 pg (28.0-32.0); MEAN CORPUSCULAR HGB CONC 33.4 g/dl (32.0-36.0); MEAN CORPUSCULAR VOLUME 90.6 fl (83.0-99.0); PLATELET COUNT,PLT 204 K/mm3 (150-400); RED BLOOD CELL COUNT 4.69 M/mm3 (4.10-5.30); WHITE BLOOD CELL COUNT,WBC 6.45 K/mm3 (3.9-11.3)
[2023-02-07 11:57] LABS: A/G RATIO 0.9 (1-2); ALANINE AMINOTRANSFERASE,ALT 22 U/L (14-59); ALBUMIN 3.2 g/dl (3.4-5.0); ALKALINE PHOSPHATASE 53 U/L (46-116); ANION GAP 14.4 (5-15); ASPARTATE AMNIOTRANSFERASE,AST 18 U/L (15-37); BILIRUBIN TOTAL 0.4 mg/dL (0.2-1.0); BLOOD UREA NITROGEN,BUN 23 mg/dL (7-18); BUN/CREATININE RATIO 20.9 (14-18); CALCIUM 8.9 mg/dL (8.5-10.1); CARBON DIOXIDE,CO2 26 mEq/L (21-32); CHLORIDE,CL 107 mEq/L (98-107); CREATININE 1.1 mg/dL (0.55-1.02); ESTIMATED GFR 55 mL/min (>60); GLUCOSE RANDOM 176 mg/dL (70-99); POTASSIUM,K 5.4 mEq/L (3.5-5.1); PROTEIN TOTAL,TP 6.6 g/dl (6.4-8.2); SODIUM,NA 142 mEq/L (136-145); TSH 0.984 uIU/mL (0.358-3.74)
[2023-02-07] MEDS ORDERED: SUMAtriptan 50 MG Tab PO ONE (12:02)
[2023-02-07 12:04] LABS: ACETAMINOPHEN 0 ug/mL (10-30)
[2023-02-07] MEDS ORDERED: Sodium Chloride 0.9% 1,000 ML IV STA (12:20)
[2023-02-07 12:31] LABS: BARBITURATE SCREEN,URINE NEGATIVE (CUTOFF=200); BENZODIAZEPINES SCREEN,URINE NEGATIVE (CUTOFF=150); BUPRENORPHINE SCREEN,URINE NEGATIVE (CUTOFF=10); METHADONE SCREEN, URINE NEGATIVE (CUTOFF=200); METHAMPHETAMINES SCREEN, URINE NEGATIVE (CUTOFF=500); OXYCODONE SCREEN,URINE NEGATIVE (CUT0FF=100); THC SCREEN,URINE 20 NG/ML NEGATIVE (CUTOFF=50)
[2023-02-07 12:40] LABS: AMPHETAMINES SCREEN, URINE NEGATIVE (CUTOFF=500)
[2023-02-07 13:34] LABS: BAND PERCENT MAN 3 % (0-10); BASOPHILS PERCENT MAN 4 (0.1-1.2); EOSINOPHILS PERCENT MAN 1 % (0.7-5.8); LYMPHOCYTES % ATYPICAL MANUAL 8 %; LYMPHOCYTES PERCENT MAN 15 % (20-40); MONOCYTES PERCENT MAN 4 % (2-10)
[2023-02-07 13:35] LABS: PLATELET COUNT ESTIMATE ADEQUATE; TOXIC GRANULATION 1+ SLIGHT
[2023-02-07 14:32] LABS: APPEARANCE,URINE CLEAR (Clear); BILIRUBIN,URINE NEGATIVE (Negative); COLOR,URINE YELLOW (Yellow); GLUCOSE,URINE NEGATIVE (Negative); KETONES,URINE NEGATIVE (Negative); LEUKOCYTE ESTERASE,URINE NEGATIVE (Negative); NITRITE,URINE NEGATIVE (Negative); OCCULT BLOOD,URINE NEGATIVE (Negative); PH,URINE 5.5 (5.0-8.0); PROTEIN,URINE 3+ (Negative); UROBILINOGEN,URINE 0.2 (0.2-1.0)
[2023-02-07 15:05] LABS: RBC,URINE 0-5 /hpf (0-5); WBC,URINE 0-5 /hpf (0-5)
[2023-02-07 15:06] LABS: BACTERIA,URINE FEW /hpf (FEW); MUCUS,URINE RARE /hpf (FEW); SQUAMOUS EPITHELIAL CELLS,UR 0-5 /hpf (0-5)
[2023-02-07 16:10] VITALS: BP 181/92; PULSE 108
== END 2023-02-07 16:05 | disposition home or self-care (01) ==
LOC: JD.ED 10:32
DX: R44.3 Hallucinations, unspecified (principal); E87.5 Hyperkalemia; I10 Essential (primary) hypertension; K21.9 Gastro-esophageal reflux disease without esophagitis; E11.9 Type 2 diabetes mellitus without complications; E03.9 Hypothyroidism, unspecified; E66.9 Obesity, unspecified; F17.210 Nicotine dependence, cigarettes, uncomplicated; Z90.710 Acquired absence of both cervix and uterus; Z86.16 Personal history of COVID-19; Z79.899 Other long term (current) drug therapy; Z88.5 Allergy status to narcotic agent; Z91.040 Latex allergy status; Z88.8 Allergy status to other drugs, medicaments and biological substances; Z88.2 Allergy status to sulfonamides; Z88.0 Allergy status to penicillin; Z91.018 Allergy to other foods
CPT/HCPCS: 36415; 80053; 80143; 80179; 80306; 80307; 81001; 84443; 85007; 85027; 93005; 99285; A9270; J7030

== ENCOUNTER 2023-06-07 03:25 | Emergency (ER) | payer MEDICARE ==
[2023-06-07] MEDS: Sodium Chloride 0.9% 1,000 ML IV ONE (04:02)
[2023-06-07] MEDS: Ketorolac 15 MG/ML SDV IVPUSH ONE ×2 (04:02→05:27)
[2023-06-07] MEDS: Ondansetron 4 MG/2 ML SDV IVPUSH ONE (04:03)
[2023-06-07 04:04] LABS: BASOPHILS ABSOLUTE AUTO 0.1 K/mm3 (0.0-0.2); BASOPHILS PERCENT AUTO 0.9 % (0.0-1.0); EOSINOPHILS ABSOLUTE AUTO 0.2 K/mm3 (0.0-0.4); EOSINOPHILS PERCENT AUTO 1.6 % (0.0-6.0); HEMATOCRIT 45.3 % (37.0-47.0); HEMOGLOBIN 15.3 gm/dl (12.0-16.0); IMMATURE GRAN ABSOLUTE AUTO 0.06 K/mm3 (0.00-0.05); IMMATURE GRAN PERCENT AUTO 0.6 % (0.0-0.4); LYMPHOCYTES ABSOLUTE AUTO 1.7 K/mm3 (1.0-4.8); LYMPHOCYTES PERCENT AUTO 16.2 % (24.0-44.0); MEAN CORPUSCULAR HEMOGLOBIN 30.7 pg (28.0-32.0); MEAN CORPUSCULAR HGB CONC 33.8 g/dl (32.0-36.0); MEAN CORPUSCULAR VOLUME 90.8 fl (83.0-99.0); MEAN PLATELET VOLUME 10.1 fl (9.4-12.3); MONOCYTES ABSOLUTE AUTO 0.6 K/mm3 (0.0-0.8); MONOCYTES PERCENT AUTO 5.5 % (0.0-8.0); NEUTROPHILS ABSOLUTE AUTO 7.9 K/mm3 (1.8-7.7); NEUTROPHILS PERCENT AUTO 75.2 % (41.0-71.0); PLATELET COUNT,PLT 237 K/mm3 (150-400); RED BLOOD CELL COUNT 4.99 M/mm3 (4.10-5.30); WHITE BLOOD CELL COUNT,WBC 10.48 K/mm3 (3.9-11.3)
[2023-06-07 04:25] LABS: A/G RATIO 1.1 (1-2); ALBUMIN 3.7 g/dl (3.4-5.0); BILIRUBIN TOTAL 0.4 mg/dL (0.2-1.0); BUN/CREATININE RATIO 18.2 (14-18); CALCIUM 9.1 mg/dL (8.5-10.1); CREATININE 1.1 mg/dL (0.55-1.02); EST CRCL DRUG DOSING (CG) 42.85 mL/min
[2023-06-07 05:14] LABS: APPEARANCE,URINE CLEAR (Clear); BILIRUBIN,URINE NEGATIVE (Negative); COLOR,URINE YELLOW (Yellow); GLUCOSE,URINE 3+ (Negative); KETONES,URINE 2+ (Negative); LEUKOCYTE ESTERASE,URINE NEGATIVE (Negative); NITRITE,URINE POSITIVE (Negative); OCCULT BLOOD,URINE 2+ (Negative); PH,URINE 5.5 (5.0-8.0); PROTEIN,URINE 2+ (Negative); UROBILINOGEN,URINE 0.2 (0.2-1.0)
[2023-06-07] MEDS: Sodium Chloride 0.9% 10 ML Syringe FLUSH PRN (05:39)
[2023-06-07] MEDS: Iopamidol 612 MG/ML 100 ML Bottle IVPUSH ONE (05:39)
[2023-06-07] MEDS: cefTRIAXone 1 GM in Sodium Chloride 0.9% 100 ML IV ONE (06:00)
[2023-06-07 06:29] LABS: BACTERIA,URINE MANY /hpf (FEW); EPITHELIAL CELLS,URINE 0-5 /hpf (0-5); WBC,URINE 0-5 /hpf (0-5)
[2023-06-07 06:30] LABS: MUCUS,URINE RARE /hpf (FEW)
[2023-06-07] MEDS: Tamsulosin 0.4 MG Cap.ER PO ONE (07:24)
[2023-06-07 07:45] VITALS: BP 172/72; PULSE 83
== END 2023-06-07 07:34 | disposition home or self-care (01) ==
LOC: JD.ED 03:25
DX: N30.01 Acute cystitis with hematuria (principal); N13.2 Hydronephrosis with renal and ureteral calculous obstruction; F17.210 Nicotine dependence, cigarettes, uncomplicated; E03.9 Hypothyroidism, unspecified; E66.9 Obesity, unspecified; E11.9 Type 2 diabetes mellitus without complications; K21.9 Gastro-esophageal reflux disease without esophagitis; I10 Essential (primary) hypertension; Z86.16 Personal history of COVID-19; Z79.899 Other long term (current) drug therapy; Z88.0 Allergy status to penicillin; Z88.2 Allergy status to sulfonamides; Z88.8 Allergy status to other drugs, medicaments and biological substances; Z91.018 Allergy to other foods; Z88.5 Allergy status to narcotic agent; Z91.040 Latex allergy status
CPT/HCPCS: 36415; 71045; 71045-26; 74177; 74177-26; 80053; 81001; 83690; 84484; 85025; 87086; 93005; 93010; 96361; 96365; 96375; 96376; 99284; 99284-25; A9270-GY; J0696; J1885; J2405; J3490; J7030; Q9967

== ENCOUNTER 2023-07-22 15:02 | Emergency (ER) | payer MEDICARE ==
[2023-07-22 16:17] LABS: BASOPHILS ABSOLUTE AUTO 0.1 K/mm3 (0.0-0.2); EOSINOPHILS ABSOLUTE AUTO 0.2 K/mm3 (0.0-0.4); EOSINOPHILS PERCENT AUTO 1.9 % (0.0-6.0); HEMATOCRIT 43.1 % (37.0-47.0); HEMOGLOBIN 14.4 gm/dl (12.0-16.0); IMMATURE GRAN ABSOLUTE AUTO 0.03 K/mm3 (0.00-0.05); IMMATURE GRAN PERCENT AUTO 0.4 % (0.0-0.4); LYMPHOCYTES ABSOLUTE AUTO 1.9 K/mm3 (1.0-4.8); LYMPHOCYTES PERCENT AUTO 22.7 % (24.0-44.0); MEAN CORPUSCULAR HEMOGLOBIN 30.4 pg (28.0-32.0); MEAN CORPUSCULAR HGB CONC 33.4 g/dl (32.0-36.0); MEAN CORPUSCULAR VOLUME 90.9 fl (83.0-99.0); MEAN PLATELET VOLUME 9.9 fl (9.4-12.3); MONOCYTES ABSOLUTE AUTO 0.6 K/mm3 (0.0-0.8); MONOCYTES PERCENT AUTO 6.7 % (0.0-8.0); NEUTROPHILS ABSOLUTE AUTO 5.6 K/mm3 (1.8-7.7); NEUTROPHILS PERCENT AUTO 67.3 % (41.0-71.0); PLATELET COUNT,PLT 216 K/mm3 (150-400); RED BLOOD CELL COUNT 4.74 M/mm3 (4.10-5.30); WHITE BLOOD CELL COUNT,WBC 8.31 K/mm3 (3.9-11.3)
[2023-07-22] MEDS: Sodium Chloride 0.9% 10 ML Syringe FLUSH ONE (16:32)
[2023-07-22] MEDS: Ondansetron 4 MG/2 ML SDV IVPUSH ONE (16:32)
[2023-07-22 16:47] LABS: A/G RATIO 1.1 (1-2); ALBUMIN 3.3 g/dl (3.4-5.0); ANION GAP 14.7 (5-15); BILIRUBIN TOTAL 0.3 mg/dL (0.2-1.0); CALCIUM 8.9 mg/dL (8.5-10.1); EST CRCL DRUG DOSING (CG) 47.14 mL/min; POTASSIUM,K 3.7 mEq/L (3.5-5.1); PROTEIN TOTAL,TP 6.3 g/dl (6.4-8.2)
[2023-07-22] MEDS: Iopamidol 612 MG/ML 100 ML Bottle IVPUSH ONE (16:49)
[2023-07-22] MEDS: Sodium Chloride 0.9% 10 ML Syringe FLUSH PRN (16:49)
[2023-07-22] MEDS: Dicyclomine 10 MG Cap PO ONE (18:34)
[2023-07-22 20:08] VITALS: BP 144/72; PULSE 60
== END 2023-07-22 18:37 | disposition home or self-care (01) ==
LOC: JD.ED 15:02
DX: R10.11 Right upper quadrant pain (principal); F17.210 Nicotine dependence, cigarettes, uncomplicated; I10 Essential (primary) hypertension; E78.00 Pure hypercholesterolemia, unspecified; K21.9 Gastro-esophageal reflux disease without esophagitis; E11.9 Type 2 diabetes mellitus without complications; E03.9 Hypothyroidism, unspecified; E66.9 Obesity, unspecified; Z79.899 Other long term (current) drug therapy; Z88.8 Allergy status to other drugs, medicaments and biological substances; Z88.2 Allergy status to sulfonamides; Z91.018 Allergy to other foods; Z88.0 Allergy status to penicillin; Z88.5 Allergy status to narcotic agent; Z88.6 Allergy status to analgesic agent; Z91.040 Latex allergy status; Z68.28 Body mass index [BMI] 28.0-28.9, adult; Z98.890 Other specified postprocedural states
CPT/HCPCS: 36415; 74177; 80053; 83690; 85025; 96374; 99284; A9270; J2405; J3490; Q9967

== ENCOUNTER 2023-08-04 08:42 | Emergency (ER) | payer MEDICARE ==
[2023-08-04] MEDS: LORazepam 1 MG Tab PO ONE (09:33)
[2023-08-04 10:41] VITALS: BP 140/80; PULSE 72
== END 2023-08-04 10:41 | disposition home or self-care (01) ==
LOC: JD.ED 08:42
DX: F43.10 Post-traumatic stress disorder, unspecified (principal); F41.1 Generalized anxiety disorder; E78.00 Pure hypercholesterolemia, unspecified; I10 Essential (primary) hypertension; K21.9 Gastro-esophageal reflux disease without esophagitis; E11.9 Type 2 diabetes mellitus without complications; E03.9 Hypothyroidism, unspecified; F17.210 Nicotine dependence, cigarettes, uncomplicated; Z88.5 Allergy status to narcotic agent; Z91.040 Latex allergy status; Z88.0 Allergy status to penicillin; Z88.8 Allergy status to other drugs, medicaments and biological substances; Z88.2 Allergy status to sulfonamides; Z91.018 Allergy to other foods; Z79.899 Other long term (current) drug therapy; Z86.16 Personal history of COVID-19; Z77.098 Contact with and (suspected) exposure to other hazardous, chiefly nonmedicinal, chemicals
CPT/HCPCS: 99284; A9270

== ENCOUNTER 2023-08-21 20:35 | Emergency (ER) | payer MEDICARE ==
[2023-08-21 21:05] LABS: BASOPHILS ABSOLUTE AUTO 0.1 K/mm3 (0.0-0.2); BASOPHILS PERCENT AUTO 0.8 % (0.0-1.0); EOSINOPHILS ABSOLUTE AUTO 0.2 K/mm3 (0.0-0.4); EOSINOPHILS PERCENT AUTO 2.3 % (0.0-6.0); HEMATOCRIT 43.3 % (37.0-47.0); HEMOGLOBIN 14.6 gm/dl (12.0-16.0); IMMATURE GRAN ABSOLUTE AUTO 0.03 K/mm3 (0.00-0.05); IMMATURE GRAN PERCENT AUTO 0.4 % (0.0-0.4); LYMPHOCYTES ABSOLUTE AUTO 1.7 K/mm3 (1.0-4.8); LYMPHOCYTES PERCENT AUTO 22.6 % (24.0-44.0); MEAN CORPUSCULAR HEMOGLOBIN 30.6 pg (28.0-32.0); MEAN CORPUSCULAR HGB CONC 33.7 g/dl (32.0-36.0); MEAN CORPUSCULAR VOLUME 90.8 fl (83.0-99.0); MEAN PLATELET VOLUME 9.9 fl (9.4-12.3); MONOCYTES ABSOLUTE AUTO 0.5 K/mm3 (0.0-0.8); MONOCYTES PERCENT AUTO 6.7 % (0.0-8.0); NEUTROPHILS ABSOLUTE AUTO 4.9 K/mm3 (1.8-7.7); NEUTROPHILS PERCENT AUTO 67.2 % (41.0-71.0); PLATELET COUNT,PLT 207 K/mm3 (150-400); RED BLOOD CELL COUNT 4.77 M/mm3 (4.10-5.30); WHITE BLOOD CELL COUNT,WBC 7.34 K/mm3 (3.9-11.3)
[2023-08-21] MEDS: LORazepam 2 MG/ML SDV IVPUSH ONE (21:34)
[2023-08-21] MEDS: Sodium Chloride 0.9% 10 ML Syringe FLUSH PRN (21:38)
[2023-08-21 21:40] LABS: A/G RATIO 1.1 (1-2); ALBUMIN 3.3 g/dl (3.4-5.0); ANION GAP 14.3 (5-15); BILIRUBIN TOTAL 0.3 mg/dL (0.2-1.0); EST CRCL DRUG DOSING (CG) 47.14 mL/min; MAGNESIUM 1.6 mg/dL (1.8-2.4); POTASSIUM,K 3.3 mEq/L (3.5-5.1); PROTEIN TOTAL,TP 6.4 g/dl (6.4-8.2)
[2023-08-21 21:44] LABS: APPEARANCE,URINE CLEAR (Clear); BILIRUBIN,URINE NEGATIVE (Negative); COLOR,URINE YELLOW (Yellow); GLUCOSE,URINE 3+ (Negative); KETONES,URINE TRACE (Negative); LEUKOCYTE ESTERASE,URINE NEGATIVE (Negative); NITRITE,URINE NEGATIVE (Negative); OCCULT BLOOD,URINE NEGATIVE (Negative); PH,URINE 5.5 (5.0-8.0); PROTEIN,URINE 2+ (Negative); UROBILINOGEN,URINE 0.2 (0.2-1.0)
[2023-08-21 22:20] LABS: AMPHETAMINES SCREEN, URINE NEGATIVE (CUTOFF=500); BARBITURATE SCREEN,URINE NEGATIVE (CUTOFF=200); BENZODIAZEPINES SCREEN,URINE NEGATIVE (CUTOFF=150); METHADONE SCREEN, URINE NEGATIVE (CUTOFF=200); METHAMPHETAMINES SCREEN, URINE NEGATIVE (CUTOFF=500); OXYCODONE SCREEN,URINE NEGATIVE (CUT0FF=100)
[2023-08-21 22:21] LABS: BUPRENORPHINE SCREEN,URINE NEGATIVE (CUTOFF=10); THC SCREEN,URINE 20 NG/ML PRESUMPTIVE POSITIVE (CUTOFF=50)
[2023-08-21] MEDS: Magnesium Sulfate/Water 2 GM in Premix Bag 1 BAG IV ONE (22:22)
[2023-08-21 22:24] LABS: BACTERIA,URINE FEW /hpf (FEW); MUCUS,URINE FEW /hpf (FEW); RBC,URINE 0-5 /hpf (0-5); SQUAMOUS EPITHELIAL CELLS,UR 0-5 /hpf (0-5); WBC,URINE 0-5 /hpf (0-5)
[2023-08-21 23:17] VITALS: BP 149/75; PULSE 72
== END 2023-08-21 23:36 | disposition home or self-care (01) ==
LOC: JD.ED 20:35
DX: F41.1 Generalized anxiety disorder (principal); I10 Essential (primary) hypertension; K21.9 Gastro-esophageal reflux disease without esophagitis; E03.9 Hypothyroidism, unspecified; E66.9 Obesity, unspecified; E11.9 Type 2 diabetes mellitus without complications; F17.210 Nicotine dependence, cigarettes, uncomplicated; Z86.16 Personal history of COVID-19; Z90.49 Acquired absence of other specified parts of digestive tract; Z90.710 Acquired absence of both cervix and uterus; Z79.899 Other long term (current) drug therapy; Z79.890 Hormone replacement therapy; Z88.0 Allergy status to penicillin; Z88.2 Allergy status to sulfonamides; Z88.8 Allergy status to other drugs, medicaments and biological substances; Z91.018 Allergy to other foods; Z91.040 Latex allergy status; Z88.5 Allergy status to narcotic agent; Z68.26 Body mass index [BMI] 26.0-26.9, adult
CPT/HCPCS: 36415; 71046; 80053; 80306; 81001; 83735; 84484; 85025; 93005; 96365; 96375; 99285; J2060; J3475; J3490

== ENCOUNTER 2024-07-08 16:16 | Emergency (ER) | payer MEDICARE ==
[2024-07-08 17:13] LABS: BASOPHILS ABSOLUTE AUTO 0.1 K/mm3 (0.0-0.2); BASOPHILS PERCENT AUTO 0.9 % (0.0-1.0); EOSINOPHILS ABSOLUTE AUTO 0.2 K/mm3 (0.0-0.4); EOSINOPHILS PERCENT AUTO 1.7 % (0.0-6.0); HEMATOCRIT 45.8 % (37.0-47.0); HEMOGLOBIN 14.9 gm/dl (12.0-16.0); IMMATURE GRAN ABSOLUTE AUTO 0.07 K/mm3 (0.00-0.05); IMMATURE GRAN PERCENT AUTO 0.8 % (0.0-0.4); LYMPHOCYTES ABSOLUTE AUTO 1.9 K/mm3 (1.0-4.8); LYMPHOCYTES PERCENT AUTO 20.7 % (24.0-44.0); MEAN CORPUSCULAR HEMOGLOBIN 30.1 pg (28.0-32.0); MEAN CORPUSCULAR HGB CONC 32.5 g/dl (32.0-36.0); MEAN CORPUSCULAR VOLUME 92.5 fl (83.0-99.0); MEAN PLATELET VOLUME 9.1 fl (9.4-12.3); MONOCYTES ABSOLUTE AUTO 0.6 K/mm3 (0.0-0.8); MONOCYTES PERCENT AUTO 6.3 % (0.0-8.0); NEUTROPHILS ABSOLUTE AUTO 6.2 K/mm3 (1.8-7.7); NEUTROPHILS PERCENT AUTO 69.6 % (41.0-71.0); PLATELET COUNT,PLT 240 K/mm3 (150-400); RED BLOOD CELL COUNT 4.95 M/mm3 (4.10-5.30); WHITE BLOOD CELL COUNT,WBC 8.95 K/mm3 (3.9-11.3)
[2024-07-08 17:37] LABS: A/G RATIO 1.1 (1-2); ALANINE AMINOTRANSFERASE,ALT 15 U/L (14-59); ALBUMIN 3.8 g/dl (3.4-5.0); ALKALINE PHOSPHATASE 80 U/L (46-116); ANION GAP 17.1 (5-15); ASPARTATE AMNIOTRANSFERASE,AST 19 U/L (15-37); BILIRUBIN TOTAL 0.3 mg/dL (0.2-1.0); BLOOD UREA NITROGEN,BUN 33 mg/dL (7-18); CALCIUM 9.9 mg/dL (8.5-10.1); CARBON DIOXIDE,CO2 23 mEq/L (21-32); CHLORIDE,CL 103 mEq/L (98-107); CREATININE 1.1 mg/dL (0.55-1.02); ESTIMATED GFR 55 mL/min (>60); GLUCOSE RANDOM 130 mg/dL (70-99); MAGNESIUM 2.2 mg/dL (1.8-2.4); POTASSIUM,K 4.1 mEq/L (3.5-5.1); PROTEIN TOTAL,TP 7.3 g/dl (6.4-8.2); SODIUM,NA 139 mEq/L (136-145); TROPONIN I HIGH SENSITIVITY 12 pg/mL (<=51)
[2024-07-08 18:41] VITALS: BP 148/86; PULSE 86
== END 2024-07-08 18:30 | disposition home or self-care (01) ==
LOC: JD.ED 16:16
DX: R07.89 Other chest pain (principal); I10 Essential (primary) hypertension; E11.9 Type 2 diabetes mellitus without complications; E03.9 Hypothyroidism, unspecified; K21.9 Gastro-esophageal reflux disease without esophagitis; M19.90 Unspecified osteoarthritis, unspecified site; Z88.5 Allergy status to narcotic agent; Z88.8 Allergy status to other drugs, medicaments and biological substances; Z91.040 Latex allergy status; Z88.2 Allergy status to sulfonamides; Z91.018 Allergy to other foods; Z79.899 Other long term (current) drug therapy; Z79.890 Hormone replacement therapy; Z90.710 Acquired absence of both cervix and uterus; Z86.16 Personal history of COVID-19
CPT/HCPCS: 36415; 71046; 71046-26; 80053; 83735; 84484; 85025; 93005; 93010; 99284; 99285